=== PATIENT | female | born 1985 | race Caucasian/White ===

== ENCOUNTER 2017-08-25 17:57 | Emergency (ER) | payer OTHER ==
[2017-08-25] MEDS ORDERED: LORazepam 2 MG/ML INJ IV STA (19:21)
--- NOTE | 2017-08-25 19:26 | ED ---
General Adult HPI - General Chief complaint: Shortness of Breath Stated complaint: MYKEL X 4 DAYS Time Seen by Provider: 08/25/17 18:58 Source: patient, RN notes reviewed Mode of arrival: ambulatory Limitations: no limitations - History of Present Illness Initial comments: If complaint and history of present illness this is a 31-year-old female here for complaint of being short of breath getting progressively worse for approximate 4 days. Patient is asking if it could possibly be anxiety. Does not offer any resistance to why she should be anxious. She is denying any headache denies chest pain or GI/ problems. - Related Data Home Medications Medication Instructions Recorded Confirmed Pioglitazone [Actos] 30 mg PO DAILY 08/25/17 08/25/17 Sertraline [Zoloft] 50 mg PO HS 08/25/17 08/25/17 metFORMIN HCL 1,000 mg PO BID 08/25/17 08/25/17 Allergies Allergy/AdvReac Type Severity Reaction Status Date / Time amoxicillin Allergy Rash/Hives Verified 08/25/17 18:56 Review of Systems ROS Statement: Those systems with pertinent positive or pertinent negative responses have been documented in the HPI. Review of systems. No visual acuity changes no headache her skin is somewhat flushed. States she feels short of breath with a pulse ox of 100% in room air occasional palpitations no chest pain no nausea no vomiting no diarrhea no neuro deficits. All systems are reviewed No significant past medical problems other non-insulin diabetes mellitus, no surgeries. Family history hypertension and heart disease. The patient thinks she had a rash she had amoxicillin as a baby. She does smoke strongly encouraged to stop drink alcohol rarely socially. ROS Other: All systems not noted in ROS Statement are negative. Past Medical History Past Medical History: Diabetes Mellitus History of Any Multi-Drug Resistant Organisms: None Reported Past Surgical History: No Surgical Hx Reported Past Psychological History: Depression Smoking Status: Current every day smoker Past Alcohol Use History: Occasional Past Drug Use History: None Reported General Exam - General Exam Comments Initial Comments: General: The patient is awake and alert, in no distress, and she feels short of breath. Respiratory rate 24. No pain. Vital signs temperature 97.1 pulse 87 respiratory rate 24 pulse ox on percent room air blood pressure 111/69 Eye: Pupils are equal, round and reactive to light, extra-ocular movements are intact ; there is normal conjunctiva bilaterally. No signs of icterus. Ears, nose, mouth and throat: There are moist mucous membranes and no oral lesions. Neck: The neck is supple, there is no tenderness, thyroid not enlarged no anterior cervical lymphadenopathy. or JVD. Cardiovascular: There is a regular rate and rhythm. No murmur, rub or gallop is appreciated. Respiratory: Lungs are clear to auscultation, respirations are non-labored, breath sounds are equal. No wheezes, stridor, rales, or rhonchi. I'll the increased respiratory rate of 24. Pulse ox on percent room air. Gastrointestinal: Soft, non-distended, non-tender abdomen without masses or organomegaly noted. There is no rebound or guarding present. No CVA tenderness. Bowel sounds are unremarkable. Back: There is no tenderness to palpation in the midline. There is no obvious deformity. No rashes noted. Musculoskeletal: Normal ROM, no tenderness, There is no pedal edema. There is no calf tenderness or swelling. Sensation intact. Pulses equal bilaterally 2+. Neurological: CN II-XII intact, There are no obvious motor or sensory deficits. Coordination appears grossly intact. Speech is normal. Eyes any neuro deficits. Skin: Skin is flushed. No medications taken. Psychiatric: Cooperative, appropriate mood & affect, normal judgment. She asks if it could be anxiety causing her to feel short of breath. Patient does not appear anxious other than the fact that she is breathing slightly more rapidly than necessary. Limitations: no limitations Course Vital Signs 08/25/17 08/25/17 08/25/17 18:25 18:59 19:06 Temperature 97.1 F L Pulse Rate 87 99 Respiratory 24 26 H Rate Blood Pressure 111/69 O2 Sat by Pulse 100 99 Oximetry 08/25/17 08/25/17 20:01 21:04 Temperature Pulse Rate 76 86 Respiratory 18 19 Rate Blood Pressure 126/67 106/61 O2 Sat by Pulse 97 98 Oximetry EKG Findings - EKG Comments: EKG Findings:: KG was done and reviewed at 1943 showing normal sinus rhythm no acute ST elevation no ectopy no ischemic changes. Rate is 78 TX interval is 126 QRS 82 QT is [address] Drew Medical Decision Making - Medical Decision Making Medical decision making; patient's here because of sensation of shortness of breath. Patient thinks she might be having an anxiety attack. Labs show white count of 10 hemoglobin 14 hematocrit 41, potassium 3.6 with a BUN is 16 creatinine 0.5 GFR greater than 60. Glucose 220. The patient is a known diabetic. TSH is 2.3. Troponin less than 0.012. D-dimer normal at 0.36. Chest x-ray is done and reviewed by radiologist his impression is; normal chest as read by Dr. Onofre Patient relaxed, states she feels much better. No chest pain or shortness of breath. She states that she is under great deal of stress of late which probably caused her to be anxious. Her father come drive her home. Advised to follow-up with her family physician. - Lab Data Result diagrams: 08/25/17 19:45 08/25/17 19:45 Lab Results 08/25/17 08/25/17 08/25/17 Range/Units 19:45 19:45 19:45 WBC 10.0 (3.8-10.6) k/uL RBC 4.46 (3.80-5.40) m/uL Hgb 14.1 (11.4-16.0) gm/dL Hct 41.1 (34.0-46.0) % MCV 92.0 (80.0-100.0) fL MCH 31.5 (25.0-35.0) pg MCHC 34.2 (31.0-37.0) g/dL RDW 13.6 (11.5-15.5) % Plt Count 269 (150-450) k/uL Neutrophils % 64 % Lymphocytes % 27 % Monocytes % 5 % Eosinophils % 2 % Basophils % 1 % Neutrophils # 6.4 (1.3-7.7) k/uL Lymphocytes # 2.7 (1.0-4.8) k/uL Monocytes # 0.5 (0-1.0) k/uL Eosinophils # 0.2 (0-0.7) k/uL Basophils # 0.1 (0-0.2) k/uL D-Dimer (<0.60) mg/L FEU Sodium 135 L (137-145) mmol/L Potassium 3.6 (3.5-5.1) mmol/L Chloride 102 (98-107) mmol/L Carbon Dioxide 20 L (22-30) mmol/L Anion Gap 13 mmol/L BUN 16 (7-17) mg/dL Creatinine 0.50 L (0.52-1.04) mg/dL Est GFR (MDRD) Af Amer >60 (>60 ml/min/1.73 sqM) Est GFR (MDRD) Non-Af >60 (>60 ml/min/1.73 sqM) Glucose 220 H (74-99) mg/dL Calcium 9.9 (8.4-10.2) mg/dL Total Bilirubin 0.3 (0.2-1.3) mg/dL AST 21 (14-36) U/L ALT 31 (9-52) U/L Alkaline Phosphatase 86 (38-126) U/L Total Creatine Kinase 68 (30-135) U/L CK-MB (CK-2) 0.4 (0.0-2.4) ng/mL CK-MB (CK-2) Rel Index 0.6 Troponin I <0.012 (0.000-0.034) ng/mL Total Protein 7.1 (6.3-8.2) g/dL Albumin 4.1 (3.5-5.0) g/dL TSH 2.300 (0.465-4.680) mIU/L 08/25/17 Range/Units 19:45 WBC (3.8-10.6) k/uL RBC (3.80-5.40) m/uL Hgb (11.4-16.0) gm/dL Hct (34.0-46.0) % MCV (80.0-100.0) fL MCH (25.0-35.0) pg MCHC (31.0-37.0) g/dL RDW (11.5-15.5) % Plt Count (150-450) k/uL Neutrophils % % Lymphocytes % % Monocytes % % Eosinophils % % Basophils % % Neutrophils # (1.3-7.7) k/uL Lymphocytes # (1.0-4.8) k/uL Monocytes # (0-1.0) k/uL Eosinophils # (0-0.7) k/uL Basophils # (0-0.2) k/uL D-Dimer 0.36 (<0.60) mg/L FEU Sodium (137-145) mmol/L Potassium (3.5-5.1) mmol/L Chloride (98-107) mmol/L Carbon Dioxide (22-30) mmol/L Anion Gap mmol/L BUN (7-17) mg/dL Creatinine (0.52-1.04) mg/dL Est GFR (MDRD) Af Amer (>60 ml/min/1.73 sqM) Est GFR (MDRD) Non-Af (>60 ml/min/1.73 sqM) Glucose (74-99) mg/dL Calcium (8.4-10.2) mg/dL Total Bilirubin (0.2-1.3) mg/dL AST (14-36) U/L ALT (9-52) U/L Alkaline Phosphatase (38-126) U/L Total Creatine Kinase (30-135) U/L CK-MB (CK-2) (0.0-2.4) ng/mL CK-MB (CK-2) Rel Index Troponin I (0.000-0.034) ng/mL Total Protein (6.3-8.2) g/dL Albumin (3.5-5.0) g/dL TSH (0.465-4.680) mIU/L Disposition Clinical Impression: Hyperventilation Disposition: HOME SELF-CARE Condition: Good Instructions: Hyperventilation (ED) Additional Instructions: Rest relax follow-up the patient family physician. Referrals: Ewdin Leiva MD [Primary Care Provider] - 1-2 days Time of Disposition: 21:48
[2017-08-25 19:55] LABS: Basophils # (A) 0.1 k/uL (0-0.2); Basophils % (A) 1 %; Eosinophils # (A) 0.2 k/uL (0-0.7); Eosinophils % (A) 2 %; HCT 41.1 % (34.0-46.0); HGB 14.1 gm/dL (11.4-16.0); Lymphocytes # (A) 2.7 k/uL (1.0-4.8); Lymphocytes % (A) 27 %; MCH 31.5 pg (25.0-35.0); MCHC 34.2 g/dL (31.0-37.0); Mean Platelet Volume 7.5; Monocytes # (A) 0.5 k/uL (0-1.0); Monocytes % (A) 5 %; Neutrophils # (A) 6.4 k/uL (1.3-7.7); Neutrophils % (A) 64 %; Platelet Count 269 k/uL (150-450); RBC 4.46 m/uL (3.80-5.40); RDW 13.6 % (11.5-15.5)
--- NOTE | 2017-08-25 20:06 | XR ---
EXAMINATION TYPE: XR chest 2V DATE OF EXAM ORDERED: 08/25/2017 HISTORY: difficulty breathing. REFERENCE: None. FINDINGS: The lungs are clear. Pleural spaces are clear. Heart size is normal. IMPRESSION: NORMAL CHEST.
[2017-08-25 20:07] LABS: ALT 31 U/L (9-52); AST 21 U/L (14-36); Albumin 4.1 g/dL (3.5-5.0); Alkaline Phosphatase 86 U/L (38-126); Anion Gap 13 mmol/L; Blood Urea Nitrogen 16 mg/dL (7-17); Calcium 9.9 mg/dL (8.4-10.2); Carbon Dioxide 20 mmol/L (22-30); Chloride 102 mmol/L (98-107); Glucose 220 mg/dL (74-99); Potassium 3.6 mmol/L (3.5-5.1); Sodium 135 mmol/L (137-145); Total Bilirubin 0.3 mg/dL (0.2-1.3); Total Protein 7.1 g/dL (6.3-8.2)
[2017-08-25 20:20] LABS: Creatine Kinase 68 U/L (30-135)
[2017-08-25 20:32] LABS: Creatine Kinase MB 0.4 ng/mL (0.0-2.4); Troponin I <0.012 ng/mL (0.000-0.034)
[2017-08-25 22:00] VITALS: BP 112/67; PULSE 96; RESP 18; TEMP 97.4
== END 2017-08-25 21:59 | disposition home or self-care (01) ==
LOC: EC 17:57
DX: R06.4 Hyperventilation (principal); R06.02 Shortness of breath; R23.2 Flushing; E11.9 Type 2 diabetes mellitus without complications; F32.9 Major depressive disorder, single episode, unspecified; F17.200 Nicotine dependence, unspecified, uncomplicated; Z79.84 Long term (current) use of oral hypoglycemic drugs; Z79.899 Other long term (current) drug therapy; Z88.0 Allergy status to penicillin
CPT/HCPCS: 36415; 93005; 85379; 80053; 84443; 82550; 82553; 84484; 85025; 71046; 99285; 96374; J2060

== ENCOUNTER → 2018-05-03 | Outpatient (CLI) | payer OTHER ==
--- NOTE | 2018-05-04 07:26 | US ---
EXAMINATION TYPE: US pelvis complete transvag DATE OF EXAM: 05/03/2018 COMPARISON: NONE CLINICAL HISTORY: R10.2 pelvic pain, T83.89XA. Pelvic cramping, IUD placement, 1, para 1 TECHNIQUE: . Transabdominal sonographic images of the pelvis were acquired. Transvaginal sonographi c images were medically necessary to better assess the following anatomy: IUD placement Date of LMP: 1 week ago EXAM MEASUREMENTS: Uterus: 8.0 x 3.5 x 4.6 cm Endometrial Stripe: 0.3 cm Right Ovary: 2.9 x 1.6 x 2.8 cm Left Ovary: 3.2 x 2.4 x 2.7 cm 1. Uterus: anteverted 2. Endometrium: IUD appears to be positioned low in OC / cervix portion of endometrium 3. Right Ovary: 1.6cm cystic area 4. Left Ovary: 2.1cm complex cystic area 5. Bilateral Adnexa: wnl 6. Posterior cul-de-sac: wnl Anteverted uterus is seen. IUD is identified on transvaginal investigation and appears abnormal are l ow in positioning in the cervical endometrial canal. No free fluid is seen in pelvic cul-de-sac. No s uspicious thickening of endometrium is seen. Both ovaries are identified and not suspiciously enlarged. Within the left ovary on transvaginal ultr asound there is 2.1 x 1.7 cm oval heterogeneous hypoechoic lesion favoring hemorrhagic cyst. IMPRESSION: 1. Abnormal low positioning of IUD, correlate clinically with direct pelvic exam. 2. A 2.1 cm nonsimple cystic lesion left ovary favors hemorrhagic cyst. Consider pelvic ultrasound fo llow-up in 6 weeks' time to reinvestigate.
== END | disposition home or self-care (01) ==
LOC: RADUSWWP 15:39
PROVIDERS: ATTEND Obstetrics & Gynecology
DX: T83.32XA Displacement of intrauterine contraceptive device, initial encounter (principal); T83.89XA Other specified complication of genitourinary prosthetic devices, implants and grafts, initial encounter; N83.202 Unspecified ovarian cyst, left side
CPT/HCPCS: 76830; 76856

== ENCOUNTER → 2018-06-16 | Outpatient (CLI) | payer OTHER ==
[2018-06-16 15:42] LABS: Albumin 4.5 g/dL (3.80-4.90); Albumin/Globulin Ratio 2.05 (1.20-2.10); Anion Gap 9.7 mmol/L (4.00-12.00); Carbon Dioxide 23.3 mmol/L (21.6-31.8); Globulin 2.2 g/dL (2.1-3.7); LDL Cholesterol,Calculated 60.4 mg/dL (0.0-131.0); Potassium 4.4 mmol/L (3.5-5.5); Total Bilirubin 0.5 mg/dL (0.3-1.2); Total Protein 6.7 g/dL (6.2-8.2); VLDL Calculation 21.6 mg/dL (5.00-40.00)
[2018-06-16 17:04] LABS: Hemoglobin A1C 7.6 % (4.0-6.0)
== END ==
LOC: LABWHC1 07:54
PROVIDERS: ATTEND Internal Medicine Endocrinology, Diabetes & Metabolism
DX: E11.65 Type 2 diabetes mellitus with hyperglycemia (principal)
CPT/HCPCS: 36415; 80053; 80061; 82043; 82570; 82607; 83036; 84443

== ENCOUNTER → 2018-06-27 | Outpatient (CLI) | payer OTHER ==
[2018-06-27 15:01] LABS: Basophils # (A) 0.1 k/uL (0-0.2); Basophils % (A) 1 %; Eosinophils # (A) 0.1 k/uL (0-0.7); Eosinophils % (A) 1 %; HGB 13.6 gm/dL (11.4-16.0); Lymphocytes # (A) 1.9 k/uL (1.0-4.8); Lymphocytes % (A) 19 %; MCH 31.2 pg (25.0-35.0); MCHC 32.4 g/dL (31.0-37.0); MCV 96.4 fL (80.0-100.0); Mean Platelet Volume 7.3; Monocytes # (A) 0.5 k/uL (0-1.0); Monocytes % (A) 5 %; Neutrophils # (A) 7.4 k/uL (1.3-7.7); Neutrophils % (A) 74 %; Platelet Count 264 k/uL (150-450); RBC 4.35 m/uL (3.80-5.40); RDW 12.7 % (11.5-15.5)
== END | disposition home or self-care (01) ==
LOC: LABPAT 14:06
PROVIDERS: ATTEND Obstetrics & Gynecology
DX: Z01.812 Encounter for preprocedural laboratory examination (principal)
CPT/HCPCS: 36415; 85025

== ENCOUNTER → 2018-07-07 | Day surgery (SDC) | payer OTHER ==
[2018-07-03 15:50] VITALS: BMI 42.9
--- NOTE | 2018-07-06 19:40 | P.HPOB ---
History of Present Illness H&P Date: 07/06/18 Chief Complaint: Menorrhagia with irregular cycle, family planning This is a 32-year-old female 1 para 1 who presents for laparoscopic bilateral tubal ligation via fulguration and endometrial ablation with NovaSure along with dilation and curettage and hysteroscopy secondary to menorrhagia with irregular cycle. She did have a intrauterine device with Mirena inserted in October of this year. It did migrate and did need to be removed secondary to irregular position. She then underwent a Nexplanon insert. She later developed an infection in her arm around the incision site and the Nexplanon did expel itself. She would like definitive surgical treatment for family planning. She also would like a NovaSure ablation to control her irregular heavy bleeding. Her menses were previously very heavy and crampy. The Nexplanon has helped with the heaviness of her bleeding and the cramping but it has expelled itself and therefore she needs something else for her heavy bleeding. She is diabetic and does not want to take control pills due to her diabetes. Obstetrical history: . History of 1 vaginal delivery. Gynecologic history: No history of sexual transmitted diseases. Social history: She is and not currently sexual active. She works at [employer] in [place]. Review of Systems Constitutional: Reports night sweats, Denies chills, Denies fever Eyes: bilateral blurred vision (Occasional), denies pain Ears, nose, mouth and throat: Denies headache, Denies sore throat Cardiovascular: Denies chest pain, Denies shortness of breath Respiratory: Denies cough Gastrointestinal: Denies abdominal pain, Denies diarrhea, Denies nausea, Denies vomiting Genitourinary: Reports dysmenorrhea, Reports menorrhagia, Reports urinary frequency Menstruation: Reports menses 8 or > days, Reports menses variable, Reports period heavy Musculoskeletal: Reports low back pain Integumentary: Denies pruritus, Denies rash Neurological: Denies numbness, Denies weakness Psychiatric: Reports anxiety, Reports depression Endocrine: Reports fatigue, Denies weight change Past Medical History Past Medical History: Diabetes Mellitus, Hyperlipidemia Additional Past Medical History / Comment(s): heavy menses History of Any Multi-Drug Resistant Organisms: None Reported Past Surgical History: Adenoidectomy, Tonsillectomy Additional Past Surgical History / Comment(s): myringotomy & tubes Past Anesthesia/Blood Transfusion Reactions: No Reported Reaction Past Psychological History: Anxiety, Depression Smoking Status: Current some day smoker Past Alcohol Use History: Occasional Past Drug Use History: None Reported - Past Family History Mother Family Medical History: Cancer, Diabetes Mellitus, Hypertension Additional Family Medical History / Comment(s): colon polyp Medications and Allergies Home Medications Medication Instructions Recorded Confirmed Type Pioglitazone [Actos] 45 mg PO DAILY 08/25/17 07/03/18 History Sertraline [Zoloft] 100 mg PO HS 08/25/17 07/03/18 History metFORMIN HCL 1,000 mg PO BID 08/25/17 07/03/18 History ALPRAZolam [Xanax] 0.25 mg PO BID PRN 07/03/18 07/03/18 History Dapagliflozin Propanediol [Farxiga] 10 mg PO HS 07/03/18 07/03/18 History Dulaglutide [Trulicity] 1.5 mg SQ TH 07/03/18 07/03/18 History Lipitor(Unknown Dose) 1 tab PO HS 07/03/18 History Allergies Allergy/AdvReac Type Severity Reaction Status Date / Time amoxicillin Allergy Rash/Hives Verified 07/03/18 15:31 Exam Osteopathic Statement: *. No significant issues noted on an osteopathic structural exam other than those noted in the History and Physical/Consult. HEENT: Within normal limits Heart: Regular rate and rhythm Lungs: Clear to auscultation bilaterally Abdomen: Soft, nontender Pelvic exam: Uterus is anteverted, nontender, with no adnexal masses or tenderness palpated. Extremities: Negative Homans Assessment and Plan (1) Family planning Status: Acute Code(s): Z30.09 - ENCOUNTER FOR OTH GENERAL CNSL AND ADVICE ON CONTRACEPTION SNOMED Code(s): 873827468 (2) Menorrhagia with irregular cycle Status: Acute Code(s): N92.1 - EXCESSIVE AND FREQUENT MENSTRUATION WITH IRREGULAR CYCLE SNOMED Code(s): 314350321 Plan: Proceed with dilation and curettage with hysteroscopy and NovaSure endometrial ablation along with laparoscopic bilateral tubal ligation via fulguration. I have discussed the risks, benefits, and alternative therapies for the above- mentioned procedure and for both sedation/anesthesia as well as necessary blood products administration, if indicated, as they pertain to this patient. The patient has indicated her understanding and acceptance of the risks and procedures discussed.
[~2018-07-07] MED LIST: BUPIVACAINE (PF) 0.25% 30 ML VIAL SQ ONE; DEXAMETHASONE SOD PHOSPHATE 10 MG/ML 1 ML VIAL IV ONE; GLYCOPYRROLATE 0.2 MG/ML 2 ML VIAL ONE; HYDROcodone/APAP 5-325MG 1 EACH TAB PO ONE; HYDROmorphone (PF) 1 MG/ML ONE; HYDROmorphone 1 MG/ML 1 ML SYRINGE IVP ONE; KETOROLAC 30 MG/ML 1 ML VIAL ONE; LACTATED RINGERS 1,000 ML IV ONE; LIDOCAINE 1% 20 ML VIAL (10MG/ML) FOR IV START INTRADERMA ONE; LIDOCAINE 1% INJ 10MG/ML (20 ML MDV) ONE; MEPERIDINE 50 MG/ML SYRINGE IVP ONE; MIDAZOLAM 2 MG/2 ML VIAL ONE; NEOSTIGMINE 1 MG/ML 10 ML VIAL ONE; ONDANSETRON 4 MG/2 ML VIAL IVP ONE; PROPOFOL 10 MG/ML 20 ML VIAL IV ONE; Pre Op ABX Message 1 EACH MISC MISCELLANE ONE; ROCURONIUM BROMIDE 10 MG/ML 10 ML VIAL IV ONE; fentaNYL (PF) 50 MCG/ML 2 ML AMP ONE
[2018-07-07 06:47] LABS: Glucose,Whole Blood 145 mg/dL (75-99)
--- NOTE | 2018-07-07 09:29 | P.OP ---
Date of Procedure: 07/07/18 Preoperative Diagnosis: Menorrhagia with irregular cycle Family planning Postoperative Diagnosis: Same Procedure(s) Performed: Dilation and curettage with hysteroscopy and NovaSure endometrial ablation Laparoscopic bilateral tubal ligation via fulguration Anesthesia: JESSIE Surgeon: Taylor Moeller Estimated Blood Loss (ml): 20 Pathology: none sent (Endometrial curettings) Condition: stable Disposition: same day Indications for Procedure: This is a 32-year-old female 1 para 1 who presents for laparoscopic bilateral tubal ligation via fulguration and endometrial ablation with NovaSure along with dilation and curettage and hysteroscopy secondary to menorrhagia with irregular cycle. She did have a intrauterine device with Mirena inserted in October of this year. It did migrate and did need to be removed secondary to irregular position. She then underwent a Nexplanon insert. She later developed an infection in her arm around the incision site and the Nexplanon did expel itself. She would like definitive surgical treatment for family planning. She also would like a NovaSure ablation to control her irregular heavy bleeding. Her menses were previously very heavy and crampy. The Nexplanon has helped with the heaviness of her bleeding and the cramping but it has expelled itself and therefore she needs something else for her heavy bleeding. She is diabetic and does not want to take control pills due to her diabetes. Operative Findings: Upon hysteroscopy, a fairly uniform endometrial pattern was noted with no specific polyps or fibroids visualized. Both tubal ostia were visualized. A minimal to moderate amount of endometrial curettings were obtained. Upon laparoscopy, normal uterus tubes and ovaries are noted. Description of Procedure: The patient is taken to the operating room. She is placed in the dorsal lithotomy position after general anesthesia was given. She is prepped and draped in the normal sterile fashion. Bladder is drained with a catheter and then removed. Pelvic exam is performed under anesthesia. Uterus is found to be anteverted with no adnexal masses. She is placed in slight Trendelenburg position. A right angle retractor is used to visualize the cervix. The anterior lip of the cervix is grasped with a single-tooth tenaculum. Cervix is sounded to 3 cm. Uterus is sounded to 9 cm. Cervix is gently dilated with Parkinson dilators until a hysteroscope could be passed. Hysteroscopy is performed using normal saline. The above noted findings are noted. Next a polyp forceps is introduced. And a minimal to moderate amount of tissue was obtained. Next medium-sized size sharp curette was placed. A moderate amount of endometrial curettings were obtained. Next NovaSure array was inserted into the endometrial cavity. Length was set at 6 cm and width was determined to be 4.3 cm. Next cavity assessment was completed and passed on the first try. Next NovaSure array was fired at 142 W for 50 seconds. Next the array was removed, inspected and then discarded. Next the hysteroscope was reinserted. Uniform charring was noted. Pictures were taken. Hysteroscope was removed. Next a kroner uterine manipulator was inserted through the cervix and the balloon was inflated. Single-tooth tenaculum was removed from the anterior lip of the cervix. Minimal bleeding was noted. All other instruments removed from the vagina. Gloves are changed and attention is turned to the abdomen. The infraumbilical fold was grasped in transverse fashion with 2 Allis clamps. A small transverse incision was made with a scalpel. A hemostat was used to carry the incision down to the underlying layer of fascia. A towel clip was placed above the umbilicus for retraction. A 11 mm disposable bladeless trocar was then inserted into the peritoneal cavity under direct visualization. Once inside, pneumoperitoneum was achieved with CO2 gas. The insert was removed and the camera was placed. Intraperitoneal placement was confirmed. No bleeding was noted. Next the patient was placed in Trendelenburg position. A small stab incision was made suprapubically and a 5 mm disposable bladeless trocar was inserted into the peritoneal cavity under direct visualization. Once inside pelvic contents were inspected. Next a bipolar Kleppinger instrument was placed through the inferior trocar and the midportion of each tube was brought away from other structures and completely fulgurated on approximate 2-3 cm segment of each tube. Excellent hemostasis was noted. A picture was taken. Pneumoperitoneum was released after the inferior trocar was removed under direct visualization. The upper trocar was then removed. The fascial incision was closed with 0 Vicryl suture in interrupted [id number] stitch. The skin incisions were then closed with 4-0 Vicryl suture in a subcuticular fashion. Next the kroner uterine manipulator was removed. Minimal bleeding was noted. All sponge and needle counts are correct. The patient is then taken to recovery room in stable condition.
[2018-07-07 09:40] VITALS: TEMP 97.2
[2018-07-07 09:52] LABS: Glucose,Whole Blood 171 mg/dL (75-99)
[2018-07-07 10:46] VITALS: BP 124/80; PULSE 92; RESP 18
== END | disposition home or self-care (01) ==
LOC: OR 06:16
PROVIDERS: ATTEND Obstetrics & Gynecology
DX: Z30.2 Encounter for sterilization (principal); E11.9 Type 2 diabetes mellitus without complications; N92.1 Excessive and frequent menstruation with irregular cycle; E66.9 Obesity, unspecified; E78.5 Hyperlipidemia, unspecified; F41.9 Anxiety disorder, unspecified; F32.9 Major depressive disorder, single episode, unspecified; F17.200 Nicotine dependence, unspecified, uncomplicated; Z82.49 Family history of ischemic heart disease and other diseases of the circulatory system; Z83.3 Family history of diabetes mellitus; Z79.84 Long term (current) use of oral hypoglycemic drugs; Z88.0 Allergy status to penicillin; Z79.899 Other long term (current) drug therapy; Z68.41 Body mass index [BMI] 40.0-44.9, adult
CPT/HCPCS: 81025; 88305; 58563; 58670; J2250; J1100; J2710; J2175; J2405; J2001; J3010; J1885; J1170; J2704

== ENCOUNTER → 2018-10-24 | Outpatient (CLI) | payer OTHER ==
[2018-10-24 12:27] LABS: Albumin 4.7 g/dL (3.80-4.90); Albumin/Globulin Ratio 2.04 (1.60-3.17); Anion Gap 12.7 mmol/L (4.00-12.00); Calcium 9.3 mg/dL (8.7-10.3); Carbon Dioxide 21.3 mmol/L (21.6-31.8); Globulin 2.3 g/dL (1.6-3.3); Potassium 4.6 mmol/L (3.5-5.5); Total Bilirubin 0.6 mg/dL (0.3-1.2)
[2018-10-24 12:35] LABS: T4, Free (Free Thyroxine) 1.4 ng/dL (0.80-1.80)
[2018-10-24 13:32] LABS: Hemoglobin A1C 7.7 % (4.0-6.0)
== END | disposition home or self-care (01) ==
LOC: LABWHC1 07:18
PROVIDERS: ATTEND Internal Medicine Endocrinology, Diabetes & Metabolism
DX: E11.65 Type 2 diabetes mellitus with hyperglycemia (principal)
CPT/HCPCS: 36415; 80053; 82043; 82570; 83036; 84439; 84443; 84480

== ENCOUNTER → 2018-12-27 | Outpatient (CLI) | payer OTHER ==
--- NOTE | 2018-12-28 07:16 | US ---
EXAMINATION TYPE: US pelvic complete DATE OF EXAM: 12/27/2018 COMPARISON: US 05/03/2018 CLINICAL HISTORY: R10.2 Pelvic Pain. Patient had tubal ligation and ablation in June 2018 TECHNIQUE: . Transabdominal sonographic images of the pelvis were acquired. Date of LMP: July 2018 EXAM MEASUREMENTS: Uterus: 6.7 x 3.1 x 4.1 cm Endometrial Stripe: 0.3 cm Right Ovary: 1.9 x 1.5 x 2.3 cm Left Ovary: 3.7 x 3.1 x 3.5 cm 1. Uterus: Anteverted wnl 2. Endometrium: wnl 3. Right Ovary: wnl 4. Left Ovary: Cystic area visualized measuring 2.3 x 1.4 x 1.8 cm 5. Bilateral Adnexa: wnl 6. Posterior cul-de-sac: wnl IMPRESSION: 1. There is a 2.3 cm hypoechoic nodule within the left ovary. This does not meet the criteria of a si mple cyst. Hemorrhagic cyst in the differential diagnosis. Other etiologies including cystic neoplasm s of the ovary not excluded. This is similar in appearance relative to the prior exam of 2018.
== END | disposition home or self-care (01) ==
LOC: RADUSWWP 16:32
PROVIDERS: ATTEND Obstetrics & Gynecology
DX: N83.8 Other noninflammatory disorders of ovary, fallopian tube and broad ligament (principal); R10.2 Pelvic and perineal pain
CPT/HCPCS: 76856

== ENCOUNTER → 2019-03-28 | Outpatient (CLI) | payer OTHER ==
--- NOTE | 2019-03-28 15:40 | US ---
EXAMINATION TYPE: US thyroid st tissue head/neck DATE OF EXAM: 03/28/2019 COMPARISON: NONE CLINICAL HISTORY: E11.65 TYPE 2 DIABETES. Abnormal labs GLAND SIZE: Right Lobe: 5.7 x 2.0 x 1.7 cm Overall Parenchyma: homogenous Left Lobe: 5.7 x 2.0 x 1.7 cm Overall Parenchyma: homogeneous Isthmus Thickness: .5 cm NODULES RIGHT: # of nodules measured on right: 0 LEFT: # of nodules measured on left: 0 ISTHMUS: # of nodules measured in the isthmus: 0 Bilateral neck scanned, no evidence of lymphadenopathy. IMPRESSION: Mildly enlarged homogeneous thyroid gland with no measurable nodule.
== END | disposition home or self-care (01) ==
LOC: RADUSWWP 15:02
PROVIDERS: ATTEND Internal Medicine Endocrinology, Diabetes & Metabolism
DX: E04.9 Nontoxic goiter, unspecified (principal)
CPT/HCPCS: 76536

== ENCOUNTER → 2019-06-29 | Outpatient (CLI) | payer OTHER ==
--- NOTE | 2019-07-01 11:24 | MR ---
EXAMINATION TYPE: MR knee LT wo con DATE OF EXAM: 06/29/2019 COMPARISON: None HISTORY: Pain in left knee TECHNIQUE: Multiplanar, multisequence imaging of the left knee is performed without IV contrast. FINDINGS: Exam is limited due to motion artifact. There is complex abnormal signal involving the posterior horn the medial meniscus compatible with a c omplex meniscal tear. Significant loss of joint space and reactive marrow edema noted involving the t ibial plateau with no fracture. Fluid signal surrounding the medial collateral ligament suggesting st rain but no evidence of tear. Lateral collateral ligament intact. No definite lateral meniscal tear. Trace amount of fluid in the suprapatellar bursa with the patellar and quadriceps tendons intact. The re is arthropathy and narrowing of the patellofemoral joint with cartilage remains intact. No sizable Rashid's cyst. Posterior cruciate ligament has a normal appearance. There is ill-definition the posterior fibers of the ACL suspicious for strain. Partial intrasubstance tear of the posterior fibers not excluded. IMPRESSION: 1. Osteoarthritis with significant loss of the medial compartment knee joint with complex tear clay pigeon loader ior horn medial meniscus and reactive marrow edema in the tibial plateau. 2. MCL strain with no evidence of tear. 3. Ill definition the posterior fibers of the ACL. Can be associated with ACL sprain with partial tea r of the posterior fibers. No through thickness tear.
== END | disposition home or self-care (01) ==
LOC: RADMRIMAIN 15:54
PROVIDERS: ATTEND Orthopaedic Surgery
DX: M17.12 Unilateral primary osteoarthritis, left knee (principal); S83.232A Complex tear of medial meniscus, current injury, left knee, initial encounter; S83.412A Sprain of medial collateral ligament of left knee, initial encounter

== ENCOUNTER → 2019-07-07 | Outpatient (CLI) | payer OTHER ==
[2019-07-07 20:23] LABS: Hemoglobin A1C 7.8 % (4.0-6.0)
[2019-07-07 22:00] LABS: African American GFR (CKD) 138.8 (60.0-200.0); Albumin 4.6 g/dL (3.80-4.90); Albumin/Globulin Ratio 1.92 (1.60-3.17); Anion Gap 15.1 mmol/L (4.00-12.00); BUN/Creat Ratio 36.67 Ratio (12.00-20.00); Calcium 9.4 mg/dL (8.7-10.3); Carbon Dioxide 21.9 mmol/L (21.6-31.8); Globulin 2.4 g/dL (1.6-3.3); Non-African American GFR(CKD) 119.8 (60.0-200.0); Potassium 4.5 mmol/L (3.5-5.5); Total Bilirubin 0.5 mg/dL (0.3-1.2)
[2019-07-07 22:58] LABS: T4, Free (Free Thyroxine) 1.1 ng/dL (0.80-1.80)
== END | disposition home or self-care (01) ==
LOC: LABWHC1 09:12
PROVIDERS: ATTEND Internal Medicine Endocrinology, Diabetes & Metabolism
DX: E11.65 Type 2 diabetes mellitus with hyperglycemia (principal)
CPT/HCPCS: 36415; 80053; 80061; 83036; 84439; 84443; 84480

== ENCOUNTER → 2019-07-24 | Outpatient (CLI) | payer OTHER ==
[2019-07-24 14:12] LABS: Basophils % (A) 0 %; Eosinophils # (A) 0.1 k/uL (0-0.7); Eosinophils % (A) 1 %; HCT 43.4 % (34.0-46.0); HGB 14.5 gm/dL (11.4-16.0); Lymphocytes # (A) 2.2 k/uL (1.0-4.8); Lymphocytes % (A) 21 %; MCH 32.5 pg (25.0-35.0); MCHC 33.5 g/dL (31.0-37.0); MCV 96.9 fL (80.0-100.0); Monocytes # (A) 0.5 k/uL (0-1.0); Monocytes % (A) 4 %; Neutrophils # (A) 7.7 k/uL (1.3-7.7); Neutrophils % (A) 72 %; Platelet Count 296 k/uL (150-450); RBC 4.48 m/uL (3.80-5.40); RDW 12.1 % (11.5-15.5); WBC 10.6 k/uL (3.8-10.6)
[2019-07-24 14:21] LABS: Potassium 4.3 mmol/L (3.5-5.1)
== END | disposition home or self-care (01) ==
LOC: LABPAT 13:45
PROVIDERS: ATTEND Orthopaedic Surgery
DX: Z01.812 Encounter for preprocedural laboratory examination (principal); M23.92 Unspecified internal derangement of left knee
CPT/HCPCS: 36415; 80051; 85025

== ENCOUNTER 2019-08-02 13:40 | Day surgery (SDC) | payer OTHER ==
[2019-07-31 10:58] VITALS: BMI 44.2
--- NOTE | 2019-08-01 15:23 | HP ---
HISTORY AND PHYSICAL DATE OF SURGERY: 08/02/2019 Josephine Jaurez is a 33-year-old patient seen with progressive left knee pain. We discussed options. She elected to proceed with left knee arthroscopy. Consent regarding the procedure was obtained. PAST MEDICAL HISTORY: Ubo-mfywwej-ujvwqvoud diabetes, hypertension, hyperlipidemia. PAST SURGICAL HISTORY: Noncontributory. MEDICATIONS: 1. Actos. 2. Farxiga. 3. Lipitor. 4. Metformin. 5. Metoprolol. 6. . 7. Zoloft. ALLERGIES: AMOXICILLIN. SOCIAL HISTORY: Smokes 1 pack of cigarettes daily. PHYSICAL EVALUATION OF THE LEFT KNEE: Range of motion is +1/2-130. Tenderness medial and lateral joint lines. Positive medial Lexa's. Positive lateral Lexa's. Patellar crepitus. Ligaments stable. Hip rotation without pain. Distal neurovascular exam is intact. LEFT KNEE RADIOGRAPHS: Revealed mild osteoarthritis. MRI left knee revealed medial meniscal tear and osteoarthritis. IMPRESSION: 1. Internal derangement, left knee with medial meniscal tear. 2. Hypertension. 3. Hyperlipidemia. 4. Igp-wvzbmdd-ksuibtrzk diabetes. PLAN: Left knee arthroscopy with partial meniscectomy, partial synovectomy and debridement. MMODL / IJN: [id number] /
[~2019-08-02 13:40] MED LIST changes: -BUPIVACAINE (PF) 0.25% 30 ML VIAL SQ ONE; -GLYCOPYRROLATE 0.2 MG/ML 2 ML VIAL ONE; -HYDROcodone/APAP 5-325MG 1 EACH TAB PO ONE; -HYDROmorphone (PF) 1 MG/ML ONE; -HYDROmorphone 1 MG/ML 1 ML SYRINGE IVP ONE; -KETOROLAC 30 MG/ML 1 ML VIAL ONE; -LACTATED RINGERS 1,000 ML IV ONE; +LACTATED RINGERS 1,000 ML IV SCH; -LIDOCAINE 1% 20 ML VIAL (10MG/ML) FOR IV START INTRADERMA ONE; +LIDOCAINE 1% 20 ML VIAL (10MG/ML) FOR IV START INTRADERMA PRN; -LIDOCAINE 1% INJ 10MG/ML (20 ML MDV) ONE; -MEPERIDINE 50 MG/ML SYRINGE IVP ONE; +MIDAZOLAM 2 MG/2 ML VIAL IV PRN; -MIDAZOLAM 2 MG/2 ML VIAL ONE; -NEOSTIGMINE 1 MG/ML 10 ML VIAL ONE; -PROPOFOL 10 MG/ML 20 ML VIAL IV ONE; -Pre Op ABX Message 1 EACH MISC MISCELLANE ONE; -ROCURONIUM BROMIDE 10 MG/ML 10 ML VIAL IV ONE; +SCOPOLAMINE 1.5MG/72HR PATCH TRANSDERM ONE; -fentaNYL (PF) 50 MCG/ML 2 ML AMP ONE
[2019-08-02 14:18] VITALS: RESP 16
[2019-08-02 14:21] LABS: Glucose,Whole Blood 117 mg/dL (75-99)
[2019-08-02] MEDS ORDERED: fentaNYL (PF) 50 MCG/ML 2 ML AMP ONE (15:02)
[2019-08-02] MEDS ORDERED: HYDROmorphone (PF) 1 MG/ML ONE (15:02)
[2019-08-02] MEDS ORDERED: SUCCINYLCHOLINE CHLORIDE 100 MG/5 ML SYR IV ONE (15:02)
[2019-08-02] MEDS ORDERED: PROPOFOL 10 MG/ML 20 ML VIAL IV ONE (15:02)
[2019-08-02] MEDS ORDERED: LIDOCAINE 1% INJ 10MG/ML (20 ML MDV) ONE (15:02)
[2019-08-02] MEDS ORDERED: MIDAZOLAM 2 MG/2 ML VIAL ONE (15:02)
[2019-08-02] MEDS ORDERED: BUPIVACAIN-EPI 0.25%-1:200,000 30 ML VIAL SQ ONE (15:25)
[2019-08-02 15:59] VITALS: TEMP 96.9
--- NOTE | 2019-08-02 15:59 | P.OP ---
Date of Procedure: 08/02/19 Preoperative Diagnosis: Internal derangement left knee Postoperative Diagnosis: 1. Tear medial meniscus left knee 2. Grade 2 chondromalacia medial femoral condyle left knee 3. Reactive synovitis medial, lateral and suprapatellar compartments left knee Procedure(s) Performed: 1. Arthroscopic partial medial meniscectomy left knee 2. Arthroscopic chondroplasty medial femoral condyle left knee 3. Arthroscopic partial synovectomy medial, lateral and suprapatellar compartments left knee Anesthesia: GETA Surgeon: Pa Pinzon Estimated Blood Loss (ml): 5 Pathology: none sent Condition: stable Disposition: PACU Indications for Procedure: 33-year-old patient seen with progressive left knee pain. After treatment options were discussed, she elected to proceed with arthroscopy. Operative Findings: see description of procedure Description of Procedure: Patient was taken to the operative suite. Patient underwent a general anesthetic by the department of anesthesia. Patient was given preoperative antibiotics. The left lower extremity was placed in a well-padded arthroscopic leg eldridge. The left leg was prepped and draped in the normal sterile orthopedic fashion. A lateral parapatellar and suprapatellar incision was made. Trochars were inserted. Arthroscopy was initiated. Suprapatellar pouch revealed diffuse thick reactive synovitis. The patellofemoral joint appeared to articulate congruently. There was grade 1 chondromalacia of the patella with no osteochondral tears present. The scope was guided into the medial gutter. No loose bodies or plica were identified. The scope was then guided into the medial compartment. A medial parapatellar incision was made. Trocar inserted followed by probe. There was a complex tear posterior horn medial meniscus. There were grade 2 chondromalacia changes medial femoral condyle with diffuse osteochondral tears present. There was thick reactive synovitis anteriorly. I performed a partial medial meniscectomy down to stable tissue. I performed a chondroplasty of the medial femoral condyle down to stable tissue. I performed a partial synovectomy decompressing reactive synovitis. The residual meniscus was stable. There was good decompression of the synovitis. Scope and probe were then guided into the intercondylar notch. Cruciates were identified, probed and found to be stable. The scope and probe were then guided into lateral compartment. Lateral meniscus was probed and found to be stable. There was no significant chondromalacia lateral compartment. There was some reactive synovitis anteriorly. I performed a partial synovectomy decompressing reactive synovitis. Shaver was removed. There was good decompression of the synovitis. The scope was in guided back into the suprapatellar compartment. I used a motorized shaver into the suprapatellar compartment. I debrided some piecemeal fragments of meniscus I encountered. I performed a partial synovectomy decompressing the reactive synovitis. The shaver was removed. I took one more look on the entire knee, no residual debris. Instruments were now removed from the joint. The joint was infiltrated with .25% Marcaine. Steri-Strips were applied to the portal sites. Sterile dressings were applied. The patient was placed into a SMITH hose. No tourniquet was utilized. The patient was awakened, transferred to a bed and taken to recovery stable satisfactory condition.
[2019-08-02] MEDS: HYDROmorphone 0.5 MG/0.5 ML SYRINGE IVP PRN ×2 (16:00→16:07)
[2019-08-02] MEDS ORDERED: fentaNYL (PF) 50 MCG/ML 2 ML AMP IVP ONE ×2 (16:14→16:37)
[2019-08-02 16:48] LABS: Glucose,Whole Blood 146 mg/dL (75-99)
[2019-08-02 17:45] VITALS: BP 133/84; PULSE 113
== END 2019-08-02 17:55 | disposition home or self-care (01) ==
LOC: OR 13:40
PROVIDERS: ATTEND Orthopaedic Surgery
DX: S83.242A Other tear of medial meniscus, current injury, left knee, initial encounter (principal); X58.XXXA Exposure to other specified factors, initial encounter; M94.262 Chondromalacia, left knee; M65.862 Other synovitis and tenosynovitis, left lower leg; E11.9 Type 2 diabetes mellitus without complications; I10 Essential (primary) hypertension; E78.5 Hyperlipidemia, unspecified; F17.210 Nicotine dependence, cigarettes, uncomplicated; F32.9 Major depressive disorder, single episode, unspecified; Z98.51 Tubal ligation status; Z79.84 Long term (current) use of oral hypoglycemic drugs; Z79.899 Other long term (current) drug therapy; Z88.0 Allergy status to penicillin
CPT/HCPCS: 81025; 29881; 29876; J2250; J1100; J0690; J2405; J2001; J3010; J1170 ×2; J0330; J2704

== ENCOUNTER 2019-09-30 11:52 | Emergency (ER) | payer OTHER ==
[2019-09-30 12:01] VITALS: RESP 18
[2019-09-30] MEDS ORDERED: ONDANSETRON 4 MG/2 ML VIAL IVP STA (12:20)
[2019-09-30] MEDS ORDERED: PANTOPRAZOLE 40 MG/10 ML VIAL IVP STA (12:20)
[2019-09-30] MEDS ORDERED: HYDROmorphone 1 MG/ML 1 ML SYRINGE IVP STA (12:20)
[2019-09-30] MEDS ORDERED: SODIUM CHLORIDE 0.9% 500 ML 500 ML IV STA (12:20)
[2019-09-30] MEDS ORDERED: SODIUM CHLORIDE 0.9% 1,000 ML IV STA (12:20)
--- NOTE | 2019-09-30 12:23 | ED ---
General Adult HPI - General Chief complaint: Abdominal Pain Stated complaint: abdominal pain Time Seen by Provider: 09/30/19 12:04 Source: patient, RN notes reviewed Mode of arrival: ambulatory Limitations: no limitations - History of Present Illness Initial comments: Patient is a pleasant 33-year-old female presenting to the emergency Department with complaints of abdominal discomfort. Onset of symptoms was in the middle the night. Patient has nausea but no vomiting. No constipation or diarrhea. No dysuria or hematuria. Discomfort is left lower abdomen/left flank. - Related Data Home Medications Medication Instructions Recorded Confirmed Pioglitazone [Actos] 45 mg PO QAM 08/25/17 07/31/19 Sertraline [Zoloft] 100 mg PO HS 08/25/17 07/31/19 metFORMIN HCL 1,000 mg PO BID 08/25/17 07/31/19 Dulaglutide [Trulicity] 1.5 mg SQ TH 07/03/18 07/31/19 Lipitor(Unknown Dose) 1 tab PO HS 07/03/18 07/31/19 Dapagliflozin Propanediol [Farxiga] 10 mg PO HS 07/31/19 07/31/19 traMADol HCL 50 mg PO DIRECTED PRN 07/31/19 07/31/19 Previous Rx's Medication Instructions Recorded Hydrocodone/Acetaminophen [[place] 1 each PO Q6HR PRN #15 tab 08/02/19 5-325] Allergies Allergy/AdvReac Type Severity Reaction Status Date / Time amoxicillin Allergy Rash/Hives Verified 09/30/19 11:58 Review of Systems ROS Statement: Those systems with pertinent positive or pertinent negative responses have been documented in the HPI. ROS Other: All systems not noted in ROS Statement are negative. Constitutional: Denies: fever Eyes: Denies: eye pain ENT: Denies: ear pain Respiratory: Denies: cough Cardiovascular: Denies: chest pain Endocrine: Denies: fatigue Gastrointestinal: Reports: abdominal pain, nausea. Denies: vomiting Genitourinary: Denies: dysuria Musculoskeletal: Denies: back pain Skin: Denies: rash Neurological: Denies: weakness Past Medical History Past Medical History: Diabetes Mellitus History of Any Multi-Drug Resistant Organisms: None Reported Past Surgical History: Orthopedic Surgery Additional Past Surgical History / Comment(s): L knee Past Psychological History: Depression Smoking Status: Current some day smoker Past Alcohol Use History: Occasional Past Drug Use History: None Reported General Exam Limitations: no limitations General appearance: alert, in no apparent distress Head exam: Present: normocephalic Eye exam: Present: normal appearance Respiratory exam: Present: normal lung sounds bilaterally Cardiovascular Exam: Present: regular rate, normal rhythm Expanded Peripheral pulses: 2+: Dorsalis Pedis (R), Dorsalis Pedis (L) GI/Abdominal exam: Present: soft, tenderness (Mild tenderness left flank). Absent: distended, guarding, rebound, rigid Extremities exam: Present: normal inspection. Absent: pedal edema, calf tenderness Back exam: Absent: CVA tenderness (L) Neurological exam: Present: alert Psychiatric exam: Present: normal affect, normal mood Skin exam: Present: normal color Course Vital Signs 09/30/19 09/30/19 11:58 12:49 Temperature 98 F Pulse Rate 81 93 Respiratory 18 18 Rate Blood Pressure 133/84 131/69 O2 Sat by Pulse 99 98 Oximetry Medical Decision Making - Medical Decision Making Patient reevaluated and resting comfortably in bed. Abdomen soft and nontender. Patient is comfortable with discharge home. - Lab Data Result diagrams: 09/30/19 12:30 09/30/19 12:30 Lab Results 09/30/19 09/30/19 09/30/19 Range/Units 12:30 12:30 12:30 WBC (3.8-10.6) k/uL RBC (3.80-5.40) m/uL Hgb (11.4-16.0) gm/dL Hct (34.0-46.0) % MCV (80.0-100.0) fL MCH (25.0-35.0) pg MCHC (31.0-37.0) g/dL RDW (11.5-15.5) % Plt Count (150-450) k/uL Neutrophils % % Lymphocytes % % Monocytes % % Eosinophils % % Basophils % % Neutrophils # (1.3-7.7) k/uL Lymphocytes # (1.0-4.8) k/uL Monocytes # (0-1.0) k/uL Eosinophils # (0-0.7) k/uL Basophils # (0-0.2) k/uL PT (9.0-12.0) sec INR (<1.2) APTT (22.0-30.0) sec Sodium 136 L (137-145) mmol/L Potassium 4.2 (3.5-5.1) mmol/L Chloride 105 (98-107) mmol/L Carbon Dioxide 20 L (22-30) mmol/L Anion Gap 11 mmol/L BUN 19 H (7-17) mg/dL Creatinine 0.47 L (0.52-1.04) mg/dL Est GFR (CKD-EPI)AfAm >90 (>60 ml/min/1.73 sqM) Est GFR (CKD-EPI)NonAf >90 (>60 ml/min/1.73 sqM) Glucose 190 H (74-99) mg/dL Calcium 9.0 (8.4-10.2) mg/dL Total Bilirubin 0.6 (0.2-1.3) mg/dL AST 30 (14-36) U/L ALT 23 (4-34) U/L Alkaline Phosphatase 78 (38-126) U/L Total Protein 7.5 (6.3-8.2) g/dL Albumin 4.4 (3.5-5.0) g/dL Amylase 60 (30-110) U/L Lipase 63 (23-300) U/L HCG, Quant <2.4 mIU/mL Urine Color Yellow Urine Appearance Clear (Clear) Urine pH 6.0 (5.0-8.0) Ur Specific [place] 1.020 (1.001-1.035) Urine Protein Negative (Negative) Urine Glucose (UA) 2+ H (Negative) Urine Ketones Negative (Negative) Urine Blood Negative (Negative) Urine Nitrite Negative (Negative) Urine Bilirubin Negative (Negative) Urine Urobilinogen <2.0 (<2.0) mg/dL Ur Leukocyte Esterase Negative (Negative) 09/30/19 09/30/19 Range/Units 12:30 12:30 WBC 10.3 (3.8-10.6) k/uL RBC 4.66 (3.80-5.40) m/uL Hgb 14.9 (11.4-16.0) gm/dL Hct 45.7 (34.0-46.0) % MCV 98.1 (80.0-100.0) fL MCH 32.0 (25.0-35.0) pg MCHC 32.7 (31.0-37.0) g/dL RDW 12.3 (11.5-15.5) % Plt Count 246 (150-450) k/uL Neutrophils % 80 % Lymphocytes % 12 % Monocytes % 5 % Eosinophils % 2 % Basophils % 1 % Neutrophils # 8.3 H (1.3-7.7) k/uL Lymphocytes # 1.3 (1.0-4.8) k/uL Monocytes # 0.5 (0-1.0) k/uL Eosinophils # 0.2 (0-0.7) k/uL Basophils # 0.1 (0-0.2) k/uL PT 10.1 (9.0-12.0) sec INR 1.0 (<1.2) APTT 24.1 (22.0-30.0) sec Sodium (137-145) mmol/L Potassium (3.5-5.1) mmol/L Chloride (98-107) mmol/L Carbon Dioxide (22-30) mmol/L Anion Gap mmol/L BUN (7-17) mg/dL Creatinine (0.52-1.04) mg/dL Est GFR (CKD-EPI)AfAm (>60 ml/min/1.73 sqM) Est GFR (CKD-EPI)NonAf (>60 ml/min/1.73 sqM) Glucose (74-99) mg/dL Calcium (8.4-10.2) mg/dL Total Bilirubin (0.2-1.3) mg/dL AST (14-36) U/L ALT (4-34) U/L Alkaline Phosphatase (38-126) U/L Total Protein (6.3-8.2) g/dL Albumin (3.5-5.0) g/dL Amylase (30-110) U/L Lipase (23-300) U/L HCG, Quant mIU/mL Urine Color Urine Appearance (Clear) Urine pH (5.0-8.0) Ur Specific [place] (1.001-1.035) Urine Protein (Negative) Urine Glucose (UA) (Negative) Urine Ketones (Negative) Urine Blood (Negative) Urine Nitrite (Negative) Urine Bilirubin (Negative) Urine Urobilinogen (<2.0) mg/dL Ur Leukocyte Esterase (Negative) - Radiology Data Radiology results: report reviewed (Computed tomography scan of the abdomen pelvis shows right ovarian cyst. Diverticulosis without diverticulitis.) Disposition Clinical Impression: Abdominal pain Disposition: HOME SELF-CARE Condition: Stable Instructions (If sedation given, give patient instructions): Abdominal Pain (ED) Additional Instructions: Please follow-up with primary care physician in the next couple days for recheck. Return for fevers, increased pain, worsening symptoms or other concerns. Is patient prescribed a controlled substance at d/c from ED?: No Referrals: Suzy Yuan MD [Primary Care Provider] - 1-2 days Time of Disposition: 14:34
[2019-09-30 12:48] LABS: Appearance,Urine Clear (Clear); Bilirubin,Urine Negative (Negative); Color,Urine Yellow; Glucose,Urine (UA) 2+ (Negative); Ketones,Urine Negative (Negative); Protein,Urine Negative (Negative)
[2019-09-30 12:49] LABS: Blood,Urine Negative (Negative); Leukocyte Esterase,Urine Negative (Negative); Nitrite,Urine Negative (Negative); Urobilinogen,Urine <2.0 mg/dL (<2.0)
[2019-09-30 12:52] LABS: Basophils # (A) 0.1 k/uL (0-0.2); Basophils % (A) 1 %; Eosinophils # (A) 0.2 k/uL (0-0.7); Eosinophils % (A) 2 %; HCT 45.7 % (34.0-46.0); HGB 14.9 gm/dL (11.4-16.0); Lymphocytes # (A) 1.3 k/uL (1.0-4.8); Lymphocytes % (A) 12 %; MCHC 32.7 g/dL (31.0-37.0); MCV 98.1 fL (80.0-100.0); Mean Platelet Volume 7.5; Monocytes # (A) 0.5 k/uL (0-1.0); Monocytes % (A) 5 %; Neutrophils # (A) 8.3 k/uL (1.3-7.7); Neutrophils % (A) 80 %; Platelet Count 246 k/uL (150-450); RBC 4.66 m/uL (3.80-5.40); RDW 12.3 % (11.5-15.5); WBC 10.3 k/uL (3.8-10.6)
[2019-09-30 13:05] LABS: Partial Thromboplastin Time 24.1 sec (22.0-30.0); Prothrombin Time 10.1 sec (9.0-12.0)
[2019-09-30 13:17] LABS: ALT 23 U/L (4-34); AST 30 U/L (14-36); African American GFR (CKD) >90 (>60 ml/min/1.73 sqM); Albumin 4.4 g/dL (3.5-5.0); Alkaline Phosphatase 78 U/L (38-126); Amylase 60 U/L (30-110); Anion Gap 11 mmol/L; Blood Urea Nitrogen 19 mg/dL (7-17); Carbon Dioxide 20 mmol/L (22-30); Chloride 105 mmol/L (98-107); Glucose 190 mg/dL (74-99); Non-African American GFR(CKD) >90 (>60 ml/min/1.73 sqM); Potassium 4.2 mmol/L (3.5-5.1); Sodium 136 mmol/L (137-145); Total Bilirubin 0.6 mg/dL (0.2-1.3); Total Protein 7.5 g/dL (6.3-8.2)
--- NOTE | 2019-09-30 14:09 | CT ---
EXAMINATION TYPE: CT abdomen pelvis w con DATE OF EXAM: 09/30/2019 COMPARISON: None HISTORY: Lower abdominal pain CT DLP: 2058.3 mGycm Automated exposure control for dose reduction was used. CONTRAST: CT scan of the abdomen pelvis is performed with IV Contrast, patient injected with 100 mL of Isovue 3 00. FINDINGS- LUNG BASES-there are multiple sub-5 mm pulmonary nodule. No prior exams available for comparison. Cain undglass changes in the left lung most typical atelectasis.. LIVER/GB- No gross abnormality is appreciated. PANCREAS- No gross abnormality is seen. SPLEEN- No gross abnormality is seen. ADRENALS- No gross abnormality is seen. KIDNEYS/BLADDER- no hydronephrosis nephrolithiasis or renal mass. BOWEL-bowel gas pattern nonspecific with no evidence of obstruction. Normal appendix. Diverticulosis of the colon with no CT evidence of diverticulitis. LYMPH NODES- No greater than 1cm abdominal or pelvic lymph nodes areappreciated. OSSEOUS STRUCTURES-hypertrophic and degenerative changes spine.. OTHER- aorta of normal caliber. Small fat-containing periumbilical hernia noted. Of 4.2 cm right ov ondina cyst. Calcifications in the pelvis appear vascular. IMPRESSION- 1. Findings are suggestive a 4.2 cm right ovarian cyst. 2. Diverticulosis with no evidence of diverticulitis
[2019-09-30 14:46] VITALS: BP 132/65; PULSE 88; TEMP 97.9
== END 2019-09-30 14:40 | disposition home or self-care (01) ==
LOC: EC 11:52
DX: R10.32 Left lower quadrant pain (principal); R11.0 Nausea; E11.9 Type 2 diabetes mellitus without complications; F32.9 Major depressive disorder, single episode, unspecified; F17.200 Nicotine dependence, unspecified, uncomplicated; Z88.0 Allergy status to penicillin; Z79.84 Long term (current) use of oral hypoglycemic drugs; Z79.899 Other long term (current) drug therapy
CPT/HCPCS: 36415; 80053; 82150; 83690; 85025; 85610; 85730; 81003; 84702; 74177; 99284; 96374; 96375 ×2; 96361 ×2; J2405; J1170; C9113; Q9967

== ENCOUNTER 2019-12-11 12:05 | Emergency (ER) | payer OTHER ==
[2019-12-11 12:13] VITALS: RESP 18; TEMP 97.9
[2019-12-11] MEDS ORDERED: MORPHINE SULFATE 4 MG/ML SYRINGE IVP STA (12:38)
[2019-12-11 12:45] LABS: Basophils % (A) 1 %; Eosinophils # (A) 0.1 k/uL (0-0.7); Eosinophils % (A) 1 %; HCT 41.3 % (34.0-46.0); HGB 13.6 gm/dL (11.4-16.0); Lymphocytes # (A) 1.2 k/uL (1.0-4.8); Lymphocytes % (A) 15 %; MCH 32.2 pg (25.0-35.0); MCV 97.5 fL (80.0-100.0); Mean Platelet Volume 7.7; Monocytes # (A) 0.5 k/uL (0-1.0); Monocytes % (A) 6 %; Neutrophils # (A) 5.9 k/uL (1.3-7.7); Neutrophils % (A) 76 %; Platelet Count 237 k/uL (150-450); RBC 4.23 m/uL (3.80-5.40); WBC 7.8 k/uL (3.8-10.6)
--- NOTE | 2019-12-11 12:49 | ED ---
Abdominal Pain HPI - General Chief Complaint: Abdominal Pain Stated Complaint: abd pain Time Seen by Provider: 12/11/19 12:18 Source: patient Mode of arrival: ambulatory Limitations: no limitations - History of Present Illness Initial Comments: 34-year-old female with history of previous tubal ligation as well as uterine ablation performed in June by Dr. Moeller presenting to the emergency department today for chief complaint of left lower pelvic pain that radiates to the back. Patient states that since she has had her tubal ligation ablation she's had left lower pelvic cramping she states it feels like she is about to start her period but never has one. She states it radiates to her back with her previous period cramps. Patient states that she has bouts furthers increased pain one being in September and the other starting on Tuesday which is why she is presenting to the emergency department today she states she's had sharp pain in the left lower pelvic region that radiates towards the back. She denies this being the flank she denies being the upper abdomen. Patient denies any fever or diarrhea vomiting nausea hematuria history of kidney stones. Patient denies vaginal bleeding or discharge. Patient denies . Patient denies chest pain, SOB, cough. Patient has no additional complaints. Upon arrival she appears well there is no signs of acute distress. She is laughing and joking with the tech who is bedside--but states pain 10/10. - Related Data Home Medications Medication Instructions Recorded Confirmed Pioglitazone [Actos] 45 mg PO QAM 08/25/17 07/31/19 Sertraline [Zoloft] 100 mg PO HS 08/25/17 07/31/19 metFORMIN HCL 1,000 mg PO BID 08/25/17 07/31/19 Dulaglutide [Trulicity] 1.5 mg SQ TH 07/03/18 07/31/19 Lipitor(Unknown Dose) 1 tab PO HS 07/03/18 07/31/19 Dapagliflozin Propanediol [Farxiga] 10 mg PO HS 07/31/19 07/31/19 traMADol HCL 50 mg PO DIRECTED PRN 07/31/19 07/31/19 Previous Rx's Medication Instructions Recorded Hydrocodone/Acetaminophen [[place] 1 each PO Q6HR PRN #15 tab 08/02/19 5-325] Allergies Allergy/AdvReac Type Severity Reaction Status Date / Time amoxicillin Allergy Rash/Hives Verified 12/11/19 12:12 Review of Systems ROS Statement: Those systems with pertinent positive or pertinent negative responses have been documented in the HPI. ROS Other: All systems not noted in ROS Statement are negative. Past Medical History Past Medical History: Diabetes Mellitus History of Any Multi-Drug Resistant Organisms: None Reported Past Surgical History: Orthopedic Surgery Additional Past Surgical History / Comment(s): L knee Past Psychological History: Depression Smoking Status: Current every day smoker Past Alcohol Use History: Rare Past Drug Use History: None Reported General Exam - General Exam Comments Initial Comments: General: The patient is awake and alert, in no distress Eye: Pupils are equal, round and reactive to light, extra-ocular movements are intact. No nystagmus. There is normal conjunctiva bilaterally. No signs of icterus. Ears, nose, mouth and throat: There are moist mucous membranes and no oral lesions. Neck: The neck is supple, there is no tenderness or JVD. Cardiovascular: There is a regular rate and rhythm. No murmur, rub or gallop is appreciated. Respiratory: Lungs are clear to auscultation, respirations are non-labored, breath sounds are equal. No wheezes, stridor, rales, or rhonchi. Gastrointestinal: Soft, non-distended, non-tender abdomen, but what appears to tender LLQ of very low pelvic region, upper abdomen without tenderness, without masses or organomegaly noted. There is no rebound or guarding present. No CVA tenderness. Musculoskeletal: Normal ROM, no tenderness. Strength 5/5. Sensation intact. Pulses equal bilaterally 2+. Neurological: A&O x 3. CN II-XII intact grossly, There are no obvious motor or sensory deficits. Coordination appears grossly intact. Speech is normal. Skin: Skin is warm and dry and no rashes or lesions are noted. Psychiatric: Cooperative, appropriate mood & affect, normal judgment. Limitations: no limitations Course Vital Signs 12/11/19 12/11/19 12:10 14:18 Temperature 97.9 F Pulse Rate 89 88 Respiratory 18 18 Rate Blood Pressure 105/65 114/81 O2 Sat by Pulse 98 98 Oximetry Medical Decision Making - Medical Decision Making 34-year-old feel presenting today for chief complaint of cramping pelvic pain, ongoing since June. 2 exacerbations of slightly increased pain. Patient US right ovarian cyst. Left no ovarian lesions. Patient Lab stable, pain appears more consistent with patient description of pelvic pain rather than LLQ pain. Patient will be discharged with OB f/u recommendation, PCP f/u for sugars. Re turn parameters include immediate return for increasing pain/fevers. Patient discharged appearing well after discussing results/presentation/hx and exam with attending who is agreeable to care plan. - Lab Data Result diagrams: 12/11/19 12:34 12/11/19 12:34 Lab Results 12/11/19 12/11/19 12/11/19 Range/Units 12:34 12:34 12:34 WBC 7.8 (3.8-10.6) k/uL RBC 4.23 (3.80-5.40) m/uL Hgb 13.6 (11.4-16.0) gm/dL Hct 41.3 (34.0-46.0) % MCV 97.5 (80.0-100.0) fL MCH 32.2 (25.0-35.0) pg MCHC 33.0 (31.0-37.0) g/dL RDW 12.0 (11.5-15.5) % Plt Count 237 (150-450) k/uL Neutrophils % 76 % Lymphocytes % 15 % Monocytes % 6 % Eosinophils % 1 % Basophils % 1 % Neutrophils # 5.9 (1.3-7.7) k/uL Lymphocytes # 1.2 (1.0-4.8) k/uL Monocytes # 0.5 (0-1.0) k/uL Eosinophils # 0.1 (0-0.7) k/uL Basophils # 0.0 (0-0.2) k/uL Sodium 138 (137-145) mmol/L Potassium 4.2 (3.5-5.1) mmol/L Chloride 106 (98-107) mmol/L Carbon Dioxide 22 (22-30) mmol/L Anion Gap 10 mmol/L BUN 17 (7-17) mg/dL Creatinine 0.48 L (0.52-1.04) mg/dL Est GFR (CKD-EPI)AfAm >90 (>60 ml/min/1.73 sqM) Est GFR (CKD-EPI)NonAf >90 (>60 ml/min/1.73 sqM) Glucose 198 H (74-99) mg/dL Plasma Lactic Acid [place] 1.8 (0.7-2.0) mmol/L Calcium 9.0 (8.4-10.2) mg/dL Total Bilirubin 0.3 (0.2-1.3) mg/dL AST 15 (14-36) U/L ALT 17 (4-34) U/L Alkaline Phosphatase 69 (38-126) U/L Total Protein 6.9 (6.3-8.2) g/dL Albumin 4.0 (3.5-5.0) g/dL Lipase 86 (23-300) U/L Urine Color Urine Appearance (Clear) Urine pH (5.0-8.0) Ur Specific [place] (1.001-1.035) Urine Protein (Negative) Urine Glucose (UA) (Negative) Urine Ketones (Negative) Urine Blood (Negative) Urine Nitrite (Negative) Urine Bilirubin (Negative) Urine Urobilinogen (<2.0) mg/dL Ur Leukocyte Esterase (Negative) Urine HCG, Qual (Not Detectd) 12/11/19 12/11/19 Range/Units 13:05 13:05 WBC (3.8-10.6) k/uL RBC (3.80-5.40) m/uL Hgb (11.4-16.0) gm/dL Hct (34.0-46.0) % MCV (80.0-100.0) fL MCH (25.0-35.0) pg MCHC (31.0-37.0) g/dL RDW (11.5-15.5) % Plt Count (150-450) k/uL Neutrophils % % Lymphocytes % % Monocytes % % Eosinophils % % Basophils % % Neutrophils # (1.3-7.7) k/uL Lymphocytes # (1.0-4.8) k/uL Monocytes # (0-1.0) k/uL Eosinophils # (0-0.7) k/uL Basophils # (0-0.2) k/uL Sodium (137-145) mmol/L Potassium (3.5-5.1) mmol/L Chloride (98-107) mmol/L Carbon Dioxide (22-30) mmol/L Anion Gap mmol/L BUN (7-17) mg/dL Creatinine (0.52-1.04) mg/dL Est GFR (CKD-EPI)AfAm (>60 ml/min/1.73 sqM) Est GFR (CKD-EPI)NonAf (>60 ml/min/1.73 sqM) Glucose (74-99) mg/dL Plasma Lactic Acid [place] (0.7-2.0) mmol/L Calcium (8.4-10.2) mg/dL Total Bilirubin (0.2-1.3) mg/dL AST (14-36) U/L ALT (4-34) U/L Alkaline Phosphatase (38-126) U/L Total Protein (6.3-8.2) g/dL Albumin (3.5-5.0) g/dL Lipase (23-300) U/L Urine Color Yellow Urine Appearance Clear (Clear) Urine pH 5.5 (5.0-8.0) Ur Specific [place] 1.035 (1.001-1.035) Urine Protein Negative (Negative) Urine Glucose (UA) 4+ H (Negative) Urine Ketones Negative (Negative) Urine Blood Negative (Negative) Urine Nitrite Negative (Negative) Urine Bilirubin Negative (Negative) Urine Urobilinogen 2.0 (<2.0) mg/dL Ur Leukocyte Esterase Negative (Negative) Urine HCG, Qual Not Detected (Not Detectd) Disposition Clinical Impression: Pelvic pain, Elevated glucose, Glucose found in urine on examination Disposition: HOME SELF-CARE Condition: Good Instructions (If sedation given, give patient instructions): Pelvic Pain in Women (ED) Additional Instructions: Please use medication as discussed. Please follow-up with family doctor in the next 2 days, and Dr. Moeller whenenever she deems necessary within next month--please contact her office. Please return to emergency room if the symptoms increase or worsen or for any other concerns. Is patient prescribed a controlled substance at d/c from ED?: No Referrals: Suzy Yuan MD [Primary Care Provider] - 1-2 days Taylor Moeller DO [Doctor of Osteopathic Medicine] - 1-2 days Time of Disposition: 13:34
[2019-12-11 12:58] LABS: ALT 17 U/L (4-34); AST 15 U/L (14-36); African American GFR (CKD) >90 (>60 ml/min/1.73 sqM); Alkaline Phosphatase 69 U/L (38-126); Anion Gap 10 mmol/L; Blood Urea Nitrogen 17 mg/dL (7-17); Carbon Dioxide 22 mmol/L (22-30); Chloride 106 mmol/L (98-107); Glucose 198 mg/dL (74-99); Non-African American GFR(CKD) >90 (>60 ml/min/1.73 sqM); Potassium 4.2 mmol/L (3.5-5.1); Sodium 138 mmol/L (137-145); Total Bilirubin 0.3 mg/dL (0.2-1.3); Total Protein 6.9 g/dL (6.3-8.2)
--- NOTE | 2019-12-11 13:14 | US ---
EXAMINATION TYPE: US transvaginal DATE OF EXAM: 12/11/2019 COMPARISON: NONE CLINICAL HISTORY: left pelvic pain. TECHNIQUE: . Transvaginal sonographic images of the pelvis were acquired. Date of LMP: Patient states she doesn't have them anymore EXAM MEASUREMENTS: Uterus: 6.4 x 3.5 x 3.9 cm Endometrial Stripe: 0.3 cm Right Ovary: 3.3 x 3.3 x 1.7 cm Left Ovary: 2.5 x 2.0 x 1.5 cm 1. Uterus: Anteverted wnl 2. Endometrium: wnl 3. Right Ovary: Hypoechoic area measuring 1.4 x 1.6 x 1.8 cm appears to be assessed. 4. Left Ovary: wnl Spectral, color and waveform doppler imaging shows good arterial and venous flow within the ovaries ; there is no evidence for ovarian torsion. 5. Bilateral Adnexa: wnl 6. Posterior cul-de-sac: wnl IMPRESSION: 1. Right ovarian cyst.
[2019-12-11 13:22] LABS: Appearance,Urine Clear (Clear); Bilirubin,Urine Negative (Negative); Blood,Urine Negative (Negative); Color,Urine Yellow; Glucose,Urine (UA) 4+ (Negative); Ketones,Urine Negative (Negative); Leukocyte Esterase,Urine Negative (Negative); Nitrite,Urine Negative (Negative); PH, Urine 5.5 (5.0-8.0); Protein,Urine Negative (Negative); Specific Gravity,Urine 1.035 (1.001-1.035)
[2019-12-11] MEDS ORDERED: HYDROmorphone 0.5 MG/0.5 ML SYRINGE IVP STA (13:49)
[2019-12-11 14:22] VITALS: BP 114/81; PULSE 88
== END 2019-12-11 14:18 | disposition home or self-care (01) ==
LOC: EC 12:05
DX: R10.2 Pelvic and perineal pain (principal); R81 Glycosuria; N83.201 Unspecified ovarian cyst, right side; E11.9 Type 2 diabetes mellitus without complications; F32.9 Major depressive disorder, single episode, unspecified; F17.200 Nicotine dependence, unspecified, uncomplicated; Z79.84 Long term (current) use of oral hypoglycemic drugs; Z79.899 Other long term (current) drug therapy; Z88.0 Allergy status to penicillin
CPT/HCPCS: 36415; 80053; 83605; 83690; 85025; 81003; 81025; 93975; 76830; 99284; 96374; 96375; J2270; J1170

== ENCOUNTER 2019-12-12 06:32 | Emergency (ER) | payer OTHER ==
[2019-12-12 06:41] VITALS: RESP 18; TEMP 97.9
[2019-12-12] MEDS ORDERED: MORPHINE SULFATE 4 MG/ML SYRINGE IV STA (06:56)
[2019-12-12] MEDS ORDERED: ONDANSETRON 4 MG/2 ML VIAL IVP STA (06:56)
[2019-12-12] MEDS ORDERED: SODIUM CHLORIDE 0.9% 1,000 ML IV STA ×2 (06:56)
[2019-12-12] MEDS ORDERED: KETOROLAC 30 MG/ML 1 ML VIAL IVP STA (06:56)
--- NOTE | 2019-12-12 07:00 | ED ---
Abdominal Pain HPI - General Chief Complaint: Abdominal Pain Stated Complaint: abd pain Time Seen by Provider: 12/12/19 06:42 Source: patient, RN notes reviewed, old records reviewed Mode of arrival: ambulatory Limitations: no limitations - History of Present Illness Initial Comments: Patient is a 34-year-old female who presents emergency department today for evaluation with complaints of left lower quadrant abdominal pain and pelvic pain. Patient reports she was seen yesterday and was diagnosed with a right ovarian cyst after transvaginal ultrasound. She states that does not correlate with patient's location of pain. She is a diabetic. She denies any significant hematuria or diarrhea. She is complaining mild nausea but no vomiting. Patient denies any concern for sexually transmitted infections and denies any vaginal discharge. She had a negative test yesterday. Surgical history includes tubal ligation and uterine ablation. She is not had a menstrual period year. - Related Data Home Medications Medication Instructions Recorded Confirmed Pioglitazone [Actos] 45 mg PO QAM 08/25/17 07/31/19 Sertraline [Zoloft] 100 mg PO HS 08/25/17 07/31/19 metFORMIN HCL 1,000 mg PO BID 08/25/17 07/31/19 Dulaglutide [Trulicity] 1.5 mg SQ TH 07/03/18 07/31/19 Lipitor(Unknown Dose) 1 tab PO HS 07/03/18 07/31/19 Dapagliflozin Propanediol [Farxiga] 10 mg PO HS 07/31/19 07/31/19 traMADol HCL 50 mg PO DIRECTED PRN 07/31/19 07/31/19 Previous Rx's Medication Instructions Recorded Hydrocodone/Acetaminophen [[place] 1 each PO Q6HR PRN #15 tab 08/02/19 5-325] Ibuprofen [Motrin] 600 mg PO Q8HR PRN #20 tab 12/12/19 Allergies Allergy/AdvReac Type Severity Reaction Status Date / Time amoxicillin Allergy Rash/Hives Verified 12/12/19 06:41 Review of Systems ROS Statement: Those systems with pertinent positive or pertinent negative responses have been documented in the HPI. ROS Other: All systems not noted in ROS Statement are negative. Past Medical History Past Medical History: Diabetes Mellitus History of Any Multi-Drug Resistant Organisms: None Reported Past Surgical History: Orthopedic Surgery, Tubal Ligation Additional Past Surgical History / Comment(s): L knee Past Psychological History: Depression Smoking Status: Current every day smoker Past Alcohol Use History: Rare Past Drug Use History: None Reported General Exam - General Exam Comments Initial Comments: 34 year old female. No distress. Limitations: no limitations General appearance: alert, in no apparent distress Head exam: Present: atraumatic, normocephalic, normal inspection Eye exam: Present: normal appearance, PERRL, EOMI. Absent: scleral icterus, conjunctival injection, periorbital swelling ENT exam: Present: normal exam, mucous membranes moist Neck exam: Present: normal inspection. Absent: tenderness, meningismus, lymphadenopathy Respiratory exam: Present: normal lung sounds bilaterally. Absent: respiratory distress, wheezes, rales, rhonchi, stridor Cardiovascular Exam: Present: regular rate, normal rhythm, normal heart sounds. Absent: systolic murmur, diastolic murmur, rubs, gallop, clicks GI/Abdominal exam: Present: soft, normal bowel sounds. Absent: distended, tenderness, guarding, rebound, rigid Extremities exam: Present: normal inspection, full ROM, normal capillary refill. Absent: tenderness, pedal edema, joint swelling, calf tenderness Back exam: Present: normal inspection Neurological exam: Present: alert, oriented X3, CN II-XII intact Psychiatric exam: Present: normal affect, normal mood Skin exam: Present: warm, dry, intact, normal color. Absent: rash Course Vital Signs 12/12/19 06:39 Temperature 97.9 F Pulse Rate 76 Respiratory 18 Rate Blood Pressure 142/82 O2 Sat by Pulse 97 Oximetry Medical Decision Making - Medical Decision Making Patient is a 34-year-old female presents emergency room today for a second evaluation with chief complaint of left-sided lower quadrant pain into the groin and hip. Patient reports that she was seen yesterday had transvaginal ultraso und which showed a right ovarian cyst but no other source of patient's pain today. Patient denies any history of STDs or any vaginal discharge. Laboratory was unremarkable. She did have a KUB which question 18.5 cm left ureteral stone. Therefore Patient had a CT on pelvis without contrast. This is evidence of diverticulosis without diverticulitis. No signs of hydronephrosis or ureter stone. The Patient are likely phleboliths. Patient was informed of these results. Discussed possible endometriosis pain or abdominal muscle pain. Discussed that her labs and CT were otherwise unremarkable. I discussed discharge and Patient was reports aren't inflamed treatments and following up with her primary care doctor and possibly HOME CARE PHYSICAL THERAPIST. Patient is agreeable to treatment plan will comply. - Lab Data Result diagrams: 12/12/19 06:49 12/12/19 06:49 Lab Results 12/12/19 12/12/19 12/12/19 Range/Units 06:49 06:49 06:49 WBC 8.1 (3.8-10.6) k/uL RBC 4.38 (3.80-5.40) m/uL Hgb 14.0 (11.4-16.0) gm/dL Hct 43.0 (34.0-46.0) % MCV 98.2 (80.0-100.0) fL MCH 32.1 (25.0-35.0) pg MCHC 32.7 (31.0-37.0) g/dL RDW 12.1 (11.5-15.5) % Plt Count 244 (150-450) k/uL Neutrophils % 75 % Lymphocytes % 17 % Monocytes % 5 % Eosinophils % 2 % Basophils % 1 % Neutrophils # 6.1 (1.3-7.7) k/uL Lymphocytes # 1.3 (1.0-4.8) k/uL Monocytes # 0.4 (0-1.0) k/uL Eosinophils # 0.1 (0-0.7) k/uL Basophils # 0.1 (0-0.2) k/uL PT 9.6 (9.0-12.0) sec INR 0.9 (<1.2) APTT 23.4 (22.0-30.0) sec Sodium 135 L (137-145) mmol/L Potassium 4.7 (3.5-5.1) mmol/L Chloride 102 (98-107) mmol/L Carbon Dioxide 24 (22-30) mmol/L Anion Gap 9 mmol/L BUN 17 (7-17) mg/dL Creatinine 0.46 L (0.52-1.04) mg/dL Est GFR (CKD-EPI)AfAm >90 (>60 ml/min/1.73 sqM) Est GFR (CKD-EPI)NonAf >90 (>60 ml/min/1.73 sqM) Glucose 196 H (74-99) mg/dL Calcium 8.9 (8.4-10.2) mg/dL Total Bilirubin 0.6 (0.2-1.3) mg/dL AST 25 (14-36) U/L ALT 19 (4-34) U/L Alkaline Phosphatase 67 (38-126) U/L Total Protein 7.3 (6.3-8.2) g/dL Albumin 4.2 (3.5-5.0) g/dL Amylase 42 (30-110) U/L Lipase 96 (23-300) U/L Urine Color Urine Appearance (Clear) Urine pH (5.0-8.0) Ur Specific [place] (1.001-1.035) Urine Protein (Negative) Urine Glucose (UA) (Negative) Urine Ketones (Negative) Urine Blood (Negative) Urine Nitrite (Negative) Urine Bilirubin (Negative) Urine Urobilinogen (<2.0) mg/dL Ur Leukocyte Esterase (Negative) Urine RBC (0-5) /hpf Urine WBC (0-5) /hpf Ur Squamous Epith Cells (0-4) /hpf Hyaline Casts (0-2) /lpf Urine Mucus (None) /hpf 12/12/19 Range/Units 06:49 WBC (3.8-10.6) k/uL RBC (3.80-5.40) m/uL Hgb (11.4-16.0) gm/dL Hct (34.0-46.0) % MCV (80.0-100.0) fL MCH (25.0-35.0) pg MCHC (31.0-37.0) g/dL RDW (11.5-15.5) % Plt Count (150-450) k/uL Neutrophils % % Lymphocytes % % Monocytes % % Eosinophils % % Basophils % % Neutrophils # (1.3-7.7) k/uL Lymphocytes # (1.0-4.8) k/uL Monocytes # (0-1.0) k/uL Eosinophils # (0-0.7) k/uL Basophils # (0-0.2) k/uL PT (9.0-12.0) sec INR (<1.2) APTT (22.0-30.0) sec Sodium (137-145) mmol/L Potassium (3.5-5.1) mmol/L Chloride (98-107) mmol/L Carbon Dioxide (22-30) mmol/L Anion Gap mmol/L BUN (7-17) mg/dL Creatinine (0.52-1.04) mg/dL Est GFR (CKD-EPI)AfAm (>60 ml/min/1.73 sqM) Est GFR (CKD-EPI)NonAf (>60 ml/min/1.73 sqM) Glucose (74-99) mg/dL Calcium (8.4-10.2) mg/dL Total Bilirubin (0.2-1.3) mg/dL AST (14-36) U/L ALT (4-34) U/L Alkaline Phosphatase (38-126) U/L Total Protein (6.3-8.2) g/dL Albumin (3.5-5.0) g/dL Amylase (30-110) U/L Lipase (23-300) U/L Urine Color Light Yellow Urine Appearance Clear (Clear) Urine pH 5.0 (5.0-8.0) Ur Specific [place] 1.008 (1.001-1.035) Urine Protein Negative (Negative) Urine Glucose (UA) 1+ H (Negative) Urine Ketones Negative (Negative) Urine Blood Negative (Negative) Urine Nitrite Negative (Negative) Urine Bilirubin Negative (Negative) Urine Urobilinogen <2.0 (<2.0) mg/dL Ur Leukocyte Esterase Trace H (Negative) Urine RBC 1 (0-5) /hpf Urine WBC 1 (0-5) /hpf Ur Squamous Epith Cells 4 (0-4) /hpf Hyaline Casts 1 (0-2) /lpf Urine Mucus Rare H (None) /hpf - Radiology Data Radiology results: report reviewed KUB shows evidence of a 0.5 cm distal left ureteral stone is not excluded. Nonspecific abdomen. CT abdomen pelvis without contrast shows diverticulosis without diverticulitis. No suspicious abnormality to account for left lower socorro drant abdominal pain. Disposition Clinical Impression: Left lateral abdominal pain Disposition: HOME SELF-CARE Condition: Good Instructions (If sedation given, give patient instructions): Abdominal Pain (ED) Additional Instructions: Follow up with PCP and return to ED if any alarming signs or symptoms occur. Take antiinflammatory medication as prescribed. Prescriptions: Ibuprofen [Motrin] 600 mg PO Q8HR PRN #20 tab PRN Reason: Pain Is patient prescribed a controlled substance at d/c from ED?: No Referrals: Suzy Yuan MD [Primary Care Provider] - 1-2 days Time of Disposition: 09:03
--- NOTE | 2019-12-12 07:25 | XR ---
EXAMINATION TYPE: XR KUB DATE OF EXAM: 12/12/2019 COMPARISON: None INDICATION: Abdomen pain left lower quadrant x3 days TECHNIQUE: Single view abdomen upright view FINDINGS: There is a normal bowel gas pattern. Air is within the colon. Some nonspecific small bowel gas may be within the midabdomen. Psoas margins are normal. No organomegaly is present. A 0.5 cm calcification may be in the left hemipelvis. Consider a distal left ureteral stone. IMPRESSION: 1. 0.5 cm distal left ureteral stone is not excluded. 2. Nonspecific abdomen
[2019-12-12 07:34] LABS: Basophils # (A) 0.1 k/uL (0-0.2); Basophils % (A) 1 %; Eosinophils # (A) 0.1 k/uL (0-0.7); Eosinophils % (A) 2 %; Lymphocytes # (A) 1.3 k/uL (1.0-4.8); Lymphocytes % (A) 17 %; MCH 32.1 pg (25.0-35.0); MCHC 32.7 g/dL (31.0-37.0); MCV 98.2 fL (80.0-100.0); Mean Platelet Volume 7.7; Monocytes # (A) 0.4 k/uL (0-1.0); Monocytes % (A) 5 %; Neutrophils # (A) 6.1 k/uL (1.3-7.7); Neutrophils % (A) 75 %; Platelet Count 244 k/uL (150-450); RBC 4.38 m/uL (3.80-5.40); RDW 12.1 % (11.5-15.5); WBC 8.1 k/uL (3.8-10.6)
[2019-12-12 07:36] LABS: Appearance,Urine Clear (Clear); Bilirubin,Urine Negative (Negative); Blood,Urine Negative (Negative); Color,Urine Light Yellow; Glucose,Urine (UA) 1+ (Negative); Hyaline Casts,Urine 1 /lpf (0-2); Ketones,Urine Negative (Negative); Leukocyte Esterase,Urine Trace (Negative); Mucus,Urine Rare /hpf; Nitrite,Urine Negative (Negative); Protein,Urine Negative (Negative); RBC,Urine 1 /hpf (0-5); Specific Gravity,Urine 1.008 (1.001-1.035); Squamous Epithelial Cell,Urine 4 /hpf (0-4); Urobilinogen,Urine <2.0 mg/dL (<2.0); WBC,Urine 1 /hpf (0-5)
[2019-12-12 07:44] LABS: INR 0.9 (<1.2); Partial Thromboplastin Time 23.4 sec (22.0-30.0); Prothrombin Time 9.6 sec (9.0-12.0)
[2019-12-12 07:53] LABS: ALT 19 U/L (4-34); AST 25 U/L (14-36); African American GFR (CKD) >90 (>60 ml/min/1.73 sqM); Albumin 4.2 g/dL (3.5-5.0); Alkaline Phosphatase 67 U/L (38-126); Amylase 42 U/L (30-110); Anion Gap 9 mmol/L; Blood Urea Nitrogen 17 mg/dL (7-17); Calcium 8.9 mg/dL (8.4-10.2); Carbon Dioxide 24 mmol/L (22-30); Chloride 102 mmol/L (98-107); Glucose 196 mg/dL (74-99); Non-African American GFR(CKD) >90 (>60 ml/min/1.73 sqM); Sodium 135 mmol/L (137-145); Total Bilirubin 0.6 mg/dL (0.2-1.3); Total Protein 7.3 g/dL (6.3-8.2)
[2019-12-12 07:54] LABS: Potassium 4.7 mmol/L (3.5-5.1)
--- NOTE | 2019-12-12 08:44 | CT ---
EXAMINATION TYPE: CT abdomen pelvis wo con DATE OF EXAM: 12/12/2019 COMPARISON: 09/30/2019 INDICATION: LLQ pain DLP: 1443 mGycm, Automated exposure control for dose reduction was used. CONTRAST: mL of . Study performed without Oral Contrast TECHNIQUE: Axial images were obtained from above the diaphragm to the pubic rami in the axial plane a t 5 mm thick sections. Reconstructed images are reviewed on the computer in the coronal plane. FINDINGS: Limited CT sections are obtained the lung bases. The lung bases are clear. CT ABDOMEN: Liver: Normal Spleen: Normal Pancreas: Normal Adrenal glands: The adrenal glands are normal. Gallbladder: Some faint gallbladder stones or sludge may be present. Kidneys: No masses are evident. No hydronephrosis is present. No cysts are present. No renal stone s are evident. Aorta: Vascular calcification is within the aorta. Inferior vena cava: Normal. CT PELVIS: Diverticular changes are within the sigmoid colon. No acute diverticulitis is evident. Large fecal smita lan at the level the rectum. Studies without oral contrast limiting bowel evaluation. Appendix: Normal as visualized. Urinary bladder: Normal. Genitourinary structures: Uterus is normal. There is slight fullness of the right ovary. No suspiciou s masses or cysts are evident. Left adnexal region may have a cyst present. Osseous structures: No suspicious lytic or sclerotic lesions. IMPRESSIONS: 1. Diverticulosis without acute diverticulitis. 2. No suspicious abnormality to account for left lower quadrant pain
[2019-12-12] MEDS ORDERED: ACET/COD 300 MG/30 MG STARTER PACK 6 TAB BTL PO STA (09:00)
[2019-12-12 09:22] VITALS: BP 102/62; PULSE 69
== END 2019-12-12 09:21 | disposition home or self-care (01) ==
LOC: EC 06:32
DX: R10.32 Left lower quadrant pain (principal); R10.2 Pelvic and perineal pain; R11.0 Nausea; N83.201 Unspecified ovarian cyst, right side; K57.90 Diverticulosis of intestine, part unspecified, without perforation or abscess without bleeding; E11.9 Type 2 diabetes mellitus without complications; F32.9 Major depressive disorder, single episode, unspecified; F17.200 Nicotine dependence, unspecified, uncomplicated; Z79.84 Long term (current) use of oral hypoglycemic drugs; Z79.899 Other long term (current) drug therapy; Z88.0 Allergy status to penicillin
CPT/HCPCS: 36415; 80053; 82150; 83690; 85025; 85610; 85730; 81001; 74018; 74176; 99285; 96374; 96375 ×2; 96361 ×2; J2270; J2405; J1885

== ENCOUNTER 2020-02-27 04:11 | Emergency (ER) | payer OTHER ==
[2020-02-27 04:20] VITALS: RESP 18; TEMP 97.7
[2020-02-27] MEDS ORDERED: ONDANSETRON 4 MG/2 ML VIAL IVP STA (04:25)
[2020-02-27] MEDS ORDERED: MORPHINE SULFATE 4 MG/ML SYRINGE IV STA (04:25)
[2020-02-27] MEDS ORDERED: SODIUM CHLORIDE 0.9% 1,000 ML IV STA (04:25)
[2020-02-27 04:52] LABS: Basophils % (A) 0 %; Eosinophils # (A) 0.2 k/uL (0-0.7); Eosinophils % (A) 2 %; HCT 45.2 % (34.0-46.0); HGB 14.6 gm/dL (11.4-16.0); Lymphocytes # (A) 1.3 k/uL (1.0-4.8); Lymphocytes % (A) 11 %; MCH 31.5 pg (25.0-35.0); MCHC 32.3 g/dL (31.0-37.0); MCV 97.6 fL (80.0-100.0); Mean Platelet Volume 7.5; Monocytes # (A) 0.4 k/uL (0-1.0); Monocytes % (A) 4 %; Neutrophils # (A) 10.1 k/uL (1.3-7.7); Neutrophils % (A) 83 %; Platelet Count 283 k/uL (150-450); RBC 4.63 m/uL (3.80-5.40); RDW 12.3 % (11.5-15.5); WBC 12.2 k/uL (3.8-10.6)
[2020-02-27 04:59] LABS: ALT 22 U/L (4-34); AST 21 U/L (14-36); African American GFR (CKD) >90 (>60 ml/min/1.73 sqM); Albumin 4.6 g/dL (3.5-5.0); Alkaline Phosphatase 69 U/L (38-126); Anion Gap 12 mmol/L; Blood Urea Nitrogen 16 mg/dL (7-17); Calcium 9.1 mg/dL (8.4-10.2); Carbon Dioxide 22 mmol/L (22-30); Chloride 101 mmol/L (98-107); Glucose 147 mg/dL (74-99); Non-African American GFR(CKD) >90 (>60 ml/min/1.73 sqM); Potassium 4.3 mmol/L (3.5-5.1); Sodium 135 mmol/L (137-145); Total Bilirubin 0.7 mg/dL (0.2-1.3); Total Protein 7.4 g/dL (6.3-8.2)
--- NOTE | 2020-02-27 05:03 | ED ---
Abdominal Pain HPI - General Chief Complaint: Abdominal Pain Stated Complaint: Abd pain Time Seen by Provider: 02/27/20 04:25 Source: patient Limitations: no limitations - History of Present Illness Initial Comments: Josephine is a 34-year-old female who presents the emergency department today for evaluation of recurrent left lower quadrant abdominal pain. Patient reports she's been suffering from chronic left lower quadrant and pelvic pain for a number of months. She is undergoing multiple ER evaluations. She was seen and evaluated as a ER yesterday she was diagnosed with a urinary tract infection discharge home. Patient reports that despite receiving pain medications in the house ER she has persistent pain in her left lower quadrant. Patient states the pain is sharp in the left lower quadrant with associated sense of constipation. No nausea, no vomiting no vaginal discharge. She does not have menses due to previous ablation. She's had small ovarian cysts in the past never required operation. - Related Data Home Medications Medication Instructions Recorded Confirmed Pioglitazone [Actos] 45 mg PO QAM 08/25/17 07/31/19 Sertraline [Zoloft] 100 mg PO HS 08/25/17 07/31/19 metFORMIN HCL 1,000 mg PO BID 08/25/17 07/31/19 Dulaglutide [Trulicity] 1.5 mg SQ TH 07/03/18 07/31/19 Lipitor(Unknown Dose) 1 tab PO HS 07/03/18 07/31/19 Dapagliflozin Propanediol [Farxiga] 10 mg PO HS 07/31/19 07/31/19 traMADol HCL 50 mg PO DIRECTED PRN 07/31/19 07/31/19 Previous Rx's Medication Instructions Recorded Hydrocodone/Acetaminophen [[place] 1 each PO Q6HR PRN #15 tab 08/02/19 5-325] Ibuprofen [Motrin] 600 mg PO Q8HR PRN #20 tab 12/12/19 Allergies Allergy/AdvReac Type Severity Reaction Status Date / Time amoxicillin Allergy Rash/Hives Verified 02/27/20 04:20 Review of Systems ROS Statement: Those systems with pertinent positive or pertinent negative responses have been documented in the HPI. ROS Other: All systems not noted in ROS Statement are negative. Past Medical History Past Medical History: Diabetes Mellitus History of Any Multi-Drug Resistant Organisms: None Reported Past Surgical History: Orthopedic Surgery, Tubal Ligation Additional Past Surgical History / Comment(s): L knee Past Psychological History: Depression Smoking Status: Current some day smoker Past Alcohol Use History: Rare Past Drug Use History: None Reported General Exam - General Exam Comments Initial Comments: Physical Exam GENERAL: Yelling out in pain, crying loudly, no tears noted HENT: Normocephalic, Atraumatic. EYES: PERRL, EOMI PULMONARY: Unlabored respirations. CARDIOVASCULAR: RRR Warm and well perfused extremities ABDOMEN: Non-distended Soft Tenderness to palpation in the RLQ SKIN: No rashes or bruising : Deferred NEUROLOGIC: Alert and oriented Normal speech Normal gait MUSCULOSKELETAL: Moving all extremities with no apparent injury PSYCHIATRIC: No SI/HI Limitations: no limitations Course Vital Signs 02/27/20 02/27/20 02/27/20 04:16 06:00 06:15 Temperature 97.7 F 97.7 F Pulse Rate 90 78 Respiratory 18 18 Rate Blood Pressure 144/76 142/86 O2 Sat by Pulse 100 100 Oximetry Medical Decision Making - Medical Decision Making Patient was seen and evaluated upon arrival to the emergency department Patient with chronic left lower quadrant abdominal pain, patient states specifically that only Dilaudid helps her pain Reports she underwent evaluation at outside hospital yesterday was discharged home Review of medical records reveals frequent visits for similar complaints with no acute findings Patient has not had any follow-up with GI or gynecology over the past few months due to the symptoms Plan repeat labs were obtained Outside records were requested 5:35am Patient again requesting Dilaudid by name, stating that it is the only medication that works for her Review of chart from yesterday [facility] reveals patient had thorough workup including CBC CMP urinalysis CT scan Patient's computed tomography scan was unremarkable there are no obvious ovarian cysts, no acute GI pathology Patient was advised to follow up with GI for her chronic intractable abdominal pain Patient was diagnosed with a urinary tract infection discharge home on oral Cipro The review of the patient's chart reveals that she has been suffering from pelvic pain for a number of years, she seems to have worsening chronic abdominal pain in the past year. She's had 4 CT scans and some pelvic ultrasounds in the past 6 months. There've been no acute findings. I discussed with the patient the need to follow up with gastroenterology and gynecology for pelvic pain. Patient is status post tubal ligation and duration therefore doesn't have menstrual cycles, cannot comment on if her pelvic pain is cyclic in nature or could be related to hormonal cycling. Does not have any previous history of endometriosis. 6:14am Less than 5 minutes after receiving Haldol patient is again stating that the medications are not working and she needs Dilaudid for her pain 6:45 AM Patient reports her pain is decreased to 3 out of 10 intensity states she like to go home because she would like to sleep in her own bed at this time - Lab Data Result diagrams: 02/27/20 04:44 02/27/20 04:44 Lab Results 02/27/20 02/27/20 02/27/20 Range/Units 04:44 04:44 04:56 WBC 12.2 H (3.8-10.6) k/uL RBC 4.63 (3.80-5.40) m/uL Hgb 14.6 (11.4-16.0) gm/dL Hct 45.2 (34.0-46.0) % MCV 97.6 (80.0-100.0) fL MCH 31.5 (25.0-35.0) pg MCHC 32.3 (31.0-37.0) g/dL RDW 12.3 (11.5-15.5) % Plt Count 283 (150-450) k/uL Neutrophils % 83 % Lymphocytes % 11 % Monocytes % 4 % Eosinophils % 2 % Basophils % 0 % Neutrophils # 10.1 H (1.3-7.7) k/uL Lymphocytes # 1.3 (1.0-4.8) k/uL Monocytes # 0.4 (0-1.0) k/uL Eosinophils # 0.2 (0-0.7) k/uL Basophils # 0.0 (0-0.2) k/uL Sodium 135 L (137-145) mmol/L Potassium 4.3 (3.5-5.1) mmol/L Chloride 101 (98-107) mmol/L Carbon Dioxide 22 (22-30) mmol/L Anion Gap 12 mmol/L BUN 16 (7-17) mg/dL Creatinine 0.56 (0.52-1.04) mg/dL Est GFR (CKD-EPI)AfAm >90 (>60 ml/min/1.73 sqM) Est GFR (CKD-EPI)NonAf >90 (>60 ml/min/1.73 sqM) Glucose 147 H (74-99) mg/dL Calcium 9.1 (8.4-10.2) mg/dL Total Bilirubin 0.7 (0.2-1.3) mg/dL AST 21 (14-36) U/L ALT 22 (4-34) U/L Alkaline Phosphatase 69 (38-126) U/L Total Protein 7.4 (6.3-8.2) g/dL Albumin 4.6 (3.5-5.0) g/dL Lipase 290 (23-300) U/L Urine Color Yellow Urine Appearance Cloudy H (Clear) Urine pH 5.0 (5.0-8.0) Ur Specific [place] 1.047 H (1.001-1.035) Urine Protein Trace H (Negative) Urine Glucose (UA) 4+ H (Negative) Urine Ketones 4+ H (Negative) Urine Blood Small H (Negative) Urine Nitrite Negative (Negative) Urine Bilirubin Negative (Negative) Urine Urobilinogen <2.0 (<2.0) mg/dL Ur Leukocyte Esterase Large H (Negative) Urine RBC 132 H (0-5) /hpf Urine WBC 36 H (0-5) /hpf Ur Squamous Epith Cells 13 H (0-4) /hpf Urine Bacteria Rare H (None) /hpf Urine Mucus Rare H (None) /hpf Urine HCG, Qual (Not Detectd) 02/27/20 Range/Units 04:56 WBC (3.8-10.6) k/uL RBC (3.80-5.40) m/uL Hgb (11.4-16.0) gm/dL Hct (34.0-46.0) % MCV (80.0-100.0) fL MCH (25.0-35.0) pg MCHC (31.0-37.0) g/dL RDW (11.5-15.5) % Plt Count (150-450) k/uL Neutrophils % % Lymphocytes % % Monocytes % % Eosinophils % % Basophils % % Neutrophils # (1.3-7.7) k/uL Lymphocytes # (1.0-4.8) k/uL Monocytes # (0-1.0) k/uL Eosinophils # (0-0.7) k/uL Basophils # (0-0.2) k/uL Sodium (137-145) mmol/L Potassium (3.5-5.1) mmol/L Chloride (98-107) mmol/L Carbon Dioxide (22-30) mmol/L Anion Gap mmol/L BUN (7-17) mg/dL Creatinine (0.52-1.04) mg/dL Est GFR (CKD-EPI)AfAm (>60 ml/min/1.73 sqM) Est GFR (CKD-EPI)NonAf (>60 ml/min/1.73 sqM) Glucose (74-99) mg/dL Calcium (8.4-10.2) mg/dL Total Bilirubin (0.2-1.3) mg/dL AST (14-36) U/L ALT (4-34) U/L Alkaline Phosphatase (38-126) U/L Total Protein (6.3-8.2) g/dL Albumin (3.5-5.0) g/dL Lipase (23-300) U/L Urine Color Urine Appearance (Clear) Urine pH (5.0-8.0) Ur Specific [place] (1.001-1.035) Urine Protein (Negative) Urine Glucose (UA) (Negative) Urine Ketones (Negative) Urine Blood (Negative) Urine Nitrite (Negative) Urine Bilirubin (Negative) Urine Urobilinogen (<2.0) mg/dL Ur Leukocyte Esterase (Negative) Urine RBC (0-5) /hpf Urine WBC (0-5) /hpf Ur Squamous Epith Cells (0-4) /hpf Urine Bacteria (None) /hpf Urine Mucus (None) /hpf Urine HCG, Qual Not Detected (Not Detectd) - EKG Data -: EKG Interpreted by Me EKG Comments: EKG was obtained to evaluate intervals prior to medication administration. EKG was obtained at 6 AM, rate is 63 rhythm is sinus, normal axis, normal intervals, GA 126, QRS 90, QTc is [address] elevations or depressions no evidence of acute or ischemia or infarction. Disposition Clinical Impression: Abdominal pain, Drug-seeking behavior Disposition: HOME SELF-CARE Condition: Stable Instructions (If sedation given, give patient instructions): Abdominal Pain (ED) Additional Instructions: You need to follow up with GI and Industrial Real Estate [employer] for further evaluation of chronic abdominal pain Continue to drink plenty of fluids and stay hydrated to prevent constipation Return to the ER for re-evaluation if you have any worsening Is patient prescribed a controlled substance at d/c from ED?: No Referrals: Suzy Yuan MD [Primary Care Provider] - 1-2 days
[2020-02-27 05:06] LABS: Appearance,Urine Cloudy (Clear); Bacteria,Urine Rare /hpf; Bilirubin,Urine Negative (Negative); Blood,Urine Small (Negative); Color,Urine Yellow; Glucose,Urine (UA) 4+ (Negative); Leukocyte Esterase,Urine Large (Negative); Mucus,Urine Rare /hpf; Nitrite,Urine Negative (Negative); Protein,Urine Trace (Negative); RBC,Urine 132 /hpf (0-5); Squamous Epithelial Cell,Urine 13 /hpf (0-4); Urobilinogen,Urine <2.0 mg/dL (<2.0); WBC,Urine 36 /hpf (0-5)
[2020-02-27] MEDS ORDERED: KETOROLAC 30 MG/ML 1 ML VIAL IVP STA (05:13)
[2020-02-27 05:20] LABS: Ketones,Urine 4+ (Negative); Specific Gravity,Urine 1.047 (1.001-1.035)
[2020-02-27] MEDS ORDERED: HALOPERIDOL LACTATE 5 MG/ML 1 ML VIAL IVP STA (05:50)
[2020-02-27 06:07] VITALS: BP 142/86; PULSE 78
== END 2020-02-27 06:59 | disposition home or self-care (01) ==
LOC: EC 04:11
DX: R10.32 Left lower quadrant pain (principal); Z76.5 Malingerer [conscious simulation]; R10.2 Pelvic and perineal pain; G89.29 Other chronic pain; E11.9 Type 2 diabetes mellitus without complications; F32.9 Major depressive disorder, single episode, unspecified; F17.200 Nicotine dependence, unspecified, uncomplicated; Z98.51 Tubal ligation status; Z79.84 Long term (current) use of oral hypoglycemic drugs; Z79.899 Other long term (current) drug therapy; Z88.0 Allergy status to penicillin
CPT/HCPCS: 36415; 93005; 80053; 83690; 85025; 81001; 81025; 87086; 99284; 96374; 96375 ×3; 96361 ×2; J2270; J1630; J2405; J1885

== ENCOUNTER 2020-04-21 16:27 | Emergency (ER) | payer OTHER ==
[2020-04-21 16:36] VITALS: BP 117/58; PULSE 99; RESP 18; TEMP 98.1
[2020-04-21] MEDS ORDERED: ONDANSETRON 4 MG/2 ML VIAL IVP STA (16:51)
[2020-04-21] MEDS ORDERED: HYDROmorphone 0.5 MG/0.5 ML SYRINGE IVP STA (16:51)
[2020-04-21] MEDS ORDERED: SODIUM CHLORIDE 0.9% 1,000 ML IV STA (16:51)
--- NOTE | 2020-04-21 16:52 | ED ---
Abdominal Pain HPI - General Chief Complaint: Abdominal Pain Stated Complaint: abd pain Time Seen by Provider: 04/21/20 16:39 Source: patient Mode of arrival: ambulatory - History of Present Illness Initial Comments: Patient is a 34-year-old female presenting to the emergency department with a chief complaint of abdominal pain. Patient reports the abdominal pain has been on one for the past few days with gradual increase in severity. Patient reports she's been having problems with pain in the left lower quadrant region since the beginning of this year and she has been evaluated multiple times in the ED with multiple CT scans finding no significant etiology for the pain. Patient states there is ago she followed up with who diagnosed her with diverticulosis and advised her to go to the ED if she develops pain in the region because that could indicate diverticulitis. Patient denies any nausea or vomiting diarrhea. Denies any signs of constipation. Denies any night sweats or chills. Denies any chest pain shortness of breath. Denies any urinary or vaginal symptoms. - Related Data Home Medications Medication Instructions Recorded Confirmed Pioglitazone [Actos] 45 mg PO QAM 08/25/17 07/31/19 Sertraline [Zoloft] 100 mg PO HS 08/25/17 07/31/19 metFORMIN HCL 1,000 mg PO BID 08/25/17 07/31/19 Dulaglutide [Trulicity] 1.5 mg SQ TH 07/03/18 07/31/19 Lipitor(Unknown Dose) 1 tab PO HS 07/03/18 07/31/19 Dapagliflozin Propanediol [Farxiga] 10 mg PO HS 07/31/19 07/31/19 traMADol HCL 50 mg PO DIRECTED PRN 07/31/19 07/31/19 Previous Rx's Medication Instructions Recorded Hydrocodone/Acetaminophen [Osyka 1 each PO Q6HR PRN #15 tab 08/02/19 5-325] Ibuprofen [Motrin] 600 mg PO Q8HR PRN #20 tab 12/12/19 Amoxicillin/Potassium Clav 1 tab PO Q12HR #20 tab 04/21/20 [Augmentin 875-125 Tablet] Allergies Allergy/AdvReac Type Severity Reaction Status Date / Time amoxicillin Allergy Rash/Hives Verified 04/21/20 16:35 Review of Systems ROS Statement: Those systems with pertinent positive or pertinent negative responses have been documented in the HPI. ROS Other: All systems not noted in ROS Statement are negative. Past Medical History Past Medical History: Diabetes Mellitus History of Any Multi-Drug Resistant Organisms: None Reported Past Surgical History: Orthopedic Surgery, Tubal Ligation Additional Past Surgical History / Comment(s): L knee Past Psychological History: Depression Smoking Status: Current some day smoker Past Alcohol Use History: Rare Past Drug Use History: None Reported General Exam Limitations: no limitations General appearance: alert, in no apparent distress Head exam: Present: atraumatic, normocephalic, normal inspection Eye exam: Present: normal appearance, PERRL, EOMI Pupils: Present: normal accommodation ENT exam: Present: normal exam, normal oropharynx, mucous membranes moist. Absent: TM's normal bilaterally, normal external ear exam Neck exam: Present: normal inspection, full ROM. Absent: tenderness, meningismu s Respiratory exam: Present: normal lung sounds bilaterally. Absent: respiratory distress, wheezes, rales Cardiovascular Exam: Present: regular rate, normal rhythm, normal heart sounds GI/Abdominal exam: Present: soft, tenderness (Left lower quadrant abdominal pain.), normal bowel sounds. Absent: distended, guarding, rebound, rigid Extremities exam: Present: normal inspection, full ROM, normal capillary refill. Absent: tenderness Back exam: Present: normal inspection, full ROM. Absent: tenderness, CVA tenderness (R), CVA tenderness (L) Neurological exam: Present: alert, oriented X3 Psychiatric exam: Present: normal affect, normal mood Skin exam: Present: warm, dry, intact, normal color Course Vital Signs 04/21/20 16:34 Temperature 98.1 F Pulse Rate 99 Respiratory 18 Rate Blood Pressure 117/58 O2 Sat by Pulse 98 Oximetry Medical Decision Making - Medical Decision Making Patient is a 34-year-old male presenting to emergency Department with a chief complaint abdominal pain. On initial evaluation, patient does have left lower quadrant pain. No CVA tenderness. Patient was given analgesia, antiemetics and fluids in the ED. CBC revealed mild leukocytosis of 11.1 K[address] Her most recent CT of abdomen and pelvis revealed diverticulosis without diverticulitis. Shared decision making was discussed regarding CT imaging, patient declined. Patient states she would rather be treated for diverticulitis. Patient started on Augmentin. Will be discharged with 10 day course of Augmentin. I advised her to follow a specific diverticulitis that. She will also be discharged with Zofran. Strict return problems were thoroughly discussed with patient was understanding and agreeable. She will follow-up with her GI specialist. Case discussed with physician. - Lab Data Result diagrams: 04/21/20 17:00 04/21/20 17:00 Lab Results 04/21/20 04/21/20 04/21/20 Range/Units 17:00 17:00 17:07 WBC 11.1 H (3.8-10.6) k/uL RBC 4.43 (3.80-5.40) m/uL Hgb 13.9 (11.4-16.0) gm/dL Hct 42.5 (34.0-46.0) % MCV 96.1 (80.0-100.0) fL MCH 31.4 (25.0-35.0) pg MCHC 32.7 (31.0-37.0) g/dL RDW 12.3 (11.5-15.5) % Plt Count 264 (150-450) k/uL Neutrophils % 75 % Lymphocytes % 16 % Monocytes % 5 % Eosinophils % 2 % Basophils % 1 % Neutrophils # 8.4 H (1.3-7.7) k/uL Lymphocytes # 1.8 (1.0-4.8) k/uL Monocytes # 0.5 (0-1.0) k/uL Eosinophils # 0.2 (0-0.7) k/uL Basophils # 0.1 (0-0.2) k/uL Sodium 137 (137-145) mmol/L Potassium 4.0 (3.5-5.1) mmol/L Chloride 103 (98-107) mmol/L Carbon Dioxide 25 (22-30) mmol/L Anion Gap 9 mmol/L BUN 21 H (7-17) mg/dL Creatinine 0.52 (0.52-1.04) mg/dL Est GFR (CKD-EPI)AfAm >90 (>60 ml/min/1.73 sqM) Est GFR (CKD-EPI)NonAf >90 (>60 ml/min/1.73 sqM) Glucose 112 H (74-99) mg/dL Calcium 9.3 (8.4-10.2) mg/dL Total Bilirubin 0.3 (0.2-1.3) mg/dL AST 26 (14-36) U/L ALT 15 (4-34) U/L Alkaline Phosphatase 71 (38-126) U/L Total Protein 7.0 (6.3-8.2) g/dL Albumin 4.2 (3.5-5.0) g/dL Lipase 158 (23-300) U/L Urine Color Yellow Urine Appearance Cloudy H (Clear) Urine pH 5.5 (5.0-8.0) Ur Specific [place] 1.040 H (1.001-1.035) Urine Protein Negative (Negative) Urine Glucose (UA) 4+ H (Negative) Urine Ketones Negative (Negative) Urine Blood Trace H (Negative) Urine Nitrite Negative (Negative) Urine Bilirubin Negative (Negative) Urine Urobilinogen <2.0 (<2.0) mg/dL Ur Leukocyte Esterase Large H (Negative) Urine RBC 31 H (0-5) /hpf Urine WBC 22 H (0-5) /hpf Ur Squamous Epith Cells 18 H (0-4) /hpf Urine Bacteria Rare H (None) /hpf Urine Mucus Rare H (None) /hpf Disposition Clinical Impression: Abdominal pain Disposition: HOME SELF-CARE Condition: Stable Instructions (If sedation given, give patient instructions): Diverticulitis Diet (ED), Abdominal Pain (ED) Additional Instructions: Take prescribed medication as directed. Drink plenty of fluids. Follow with diverticulitis specific diet. Follow-up with . Return to emergency department if symptoms worsen. Prescriptions: Amoxicillin/Potassium Clav [Augmentin 875-125 Tablet] 1 tab PO Q12HR #20 tab Is patient prescribed a controlled substance at d/c from ED?: No Referrals: Suzy Yuan MD [Primary Care Provider] - 1-2 days Suad Tsang MD [STAFF PHYSICIAN] - 1-2 days Time of Disposition: 18:08
[2020-04-21 17:13] LABS: Basophils # (A) 0.1 k/uL (0-0.2); Basophils % (A) 1 %; Eosinophils # (A) 0.2 k/uL (0-0.7); Eosinophils % (A) 2 %; HCT 42.5 % (34.0-46.0); HGB 13.9 gm/dL (11.4-16.0); Lymphocytes # (A) 1.8 k/uL (1.0-4.8); Lymphocytes % (A) 16 %; MCH 31.4 pg (25.0-35.0); MCHC 32.7 g/dL (31.0-37.0); MCV 96.1 fL (80.0-100.0); Mean Platelet Volume 7.1; Monocytes # (A) 0.5 k/uL (0-1.0); Monocytes % (A) 5 %; Neutrophils # (A) 8.4 k/uL (1.3-7.7); Neutrophils % (A) 75 %; Platelet Count 264 k/uL (150-450); RBC 4.43 m/uL (3.80-5.40); RDW 12.3 % (11.5-15.5); WBC 11.1 k/uL (3.8-10.6)
[2020-04-21 17:16] LABS: Appearance,Urine Cloudy (Clear); Bacteria,Urine Rare /hpf; Bilirubin,Urine Negative (Negative); Blood,Urine Trace (Negative); Color,Urine Yellow; Glucose,Urine (UA) 4+ (Negative); Ketones,Urine Negative (Negative); Leukocyte Esterase,Urine Large (Negative); Mucus,Urine Rare /hpf; Nitrite,Urine Negative (Negative); PH, Urine 5.5 (5.0-8.0); Protein,Urine Negative (Negative); RBC,Urine 31 /hpf (0-5); Squamous Epithelial Cell,Urine 18 /hpf (0-4); Urobilinogen,Urine <2.0 mg/dL (<2.0); WBC,Urine 22 /hpf (0-5)
[2020-04-21 17:33] LABS: ALT 15 U/L (4-34); AST 26 U/L (14-36); African American GFR (CKD) >90 (>60 ml/min/1.73 sqM); Albumin 4.2 g/dL (3.5-5.0); Alkaline Phosphatase 71 U/L (38-126); Anion Gap 9 mmol/L; Blood Urea Nitrogen 21 mg/dL (7-17); Calcium 9.3 mg/dL (8.4-10.2); Carbon Dioxide 25 mmol/L (22-30); Chloride 103 mmol/L (98-107); Glucose 112 mg/dL (74-99); Non-African American GFR(CKD) >90 (>60 ml/min/1.73 sqM); Sodium 137 mmol/L (137-145); Total Bilirubin 0.3 mg/dL (0.2-1.3)
[2020-04-21] MEDS ORDERED: ACET/COD 300 MG/30 MG STARTER PACK 6 TAB BTL PO STA (18:07)
[2020-04-21] MEDS ORDERED: AMOXIC-POT CLAV 875-125MG 1 EACH TAB PO STA (18:07)
== END 2020-04-21 18:23 | disposition home or self-care (01) ==
LOC: EC 16:27
DX: R10.32 Left lower quadrant pain (principal); D72.829 Elevated white blood cell count, unspecified; K57.92 Diverticulitis of intestine, part unspecified, without perforation or abscess without bleeding; E11.9 Type 2 diabetes mellitus without complications; F32.9 Major depressive disorder, single episode, unspecified; F17.200 Nicotine dependence, unspecified, uncomplicated; Z79.84 Long term (current) use of oral hypoglycemic drugs; Z79.899 Other long term (current) drug therapy; Z88.0 Allergy status to penicillin
CPT/HCPCS: 36415; 80053; 83690; 85025; 81001; 87086; 99284; 96374; 96375; 96361; J2405; J1170

== ENCOUNTER 2020-05-01 07:19 | Day surgery (SDC) | payer OTHER ==
[2020-04-30 10:56] VITALS: BMI 42.3
[~2020-05-01 07:19] MED LIST changes: -DEXAMETHASONE SOD PHOSPHATE 10 MG/ML 1 ML VIAL IV ONE; -LIDOCAINE 1% 20 ML VIAL (10MG/ML) FOR IV START INTRADERMA PRN; -MIDAZOLAM 2 MG/2 ML VIAL IV PRN; -ONDANSETRON 4 MG/2 ML VIAL IVP ONE; -SCOPOLAMINE 1.5MG/72HR PATCH TRANSDERM ONE
[2020-05-01] MEDS ORDERED: LIDOCAINE 1% (10MG/ML) FOR IV START INTRADERMA ONE (08:02)
[2020-05-01 08:03] LABS: Glucose,Whole Blood 124 mg/dL (75-99)
[2020-05-01 08:04] VITALS: TEMP 97.2
[2020-05-01] MEDS ORDERED: PROPOFOL 10 MG/ML 20 ML VIAL IV ONE (08:18)
[2020-05-01] MEDS ORDERED: KETAMINE 10 MG/ML 20 ML VIAL ONE (08:18)
[2020-05-01] MEDS ORDERED: LIDOCAINE 1% INJ 10MG/ML (20 ML MDV) ONE (08:18)
--- NOTE | 2020-05-01 08:44 | P.PCN ---
Date of Procedure: 05/01/20 Description of Procedure: BRIEF HISTORY: Patient is a 34-year-old female presenting for outpatient colonoscopy for evaluation of left lower quadrant abdominal pain. Patient reports pain in left lower quadrant, previously she was also having some loose bowel movements. She is a medical history significant for diabetes mellitus. No prior colonoscopy. PROCEDURE PERFORMED: Colonoscopy with biopsy. PREOPERATIVE DIAGNOSIS: Left lower quadrant abdominal pain, abdominal pain, change in bowel habits, no prior colonoscopy. ESTIMATED BLOOD LOSS: Minimal. IV sedation per Anesthesia. PROCEDURE: After informed consent was obtained, the patient, was brought into the endoscopy unit. IV sedation was administered by Anesthesia under continuous monitoring. Digital rectal examination was normal. Initially the Olympus CF-190 flexible video colonoscope was then inserted in the rectum, gradually advanced into the cecum without any difficulty. Careful examination was performed as the scope was gradually being withdrawn. Ileocecal valve and the appendiceal orifice were visualized and appeared normal. Prep was excellent. Mucosa of the cecum, ascending colon, transverse colon, descending colon, sigmoid colon, and rectum appeared normal, with biopsies taken of the right and left colon given her report of previous change in bowel habits. A few scattered diverticula noted in the sigmoid colon. Retroflexion was performed in the rectum and no lesions were seen, low-grade internal hemorrhoids. The patient tolerated the procedure well. IMPRESSION: Mild sigmoid diverticulosis. Otherwise normal-appearing colon from rectum to cecum with random biopsies taken of the right and left colon. RECOMMENDATIONS: Findings of this examination were discussed with the patient. Okay to resume diet. Okay to resume medication. Await pathology from biopsies. Follow-up in GI clinic as previously scheduled.
[2020-05-01 08:49] VITALS: RESP 16
[2020-05-01 08:53] VITALS: BP 114/64; PULSE 80
[2020-05-01 08:54] LABS: Glucose,Whole Blood 124 mg/dL (75-99)
== END 2020-05-01 09:12 | disposition home or self-care (01) ==
LOC: ORWHC2ENDO 07:19
PROVIDERS: ATTEND Internal Medicine
DX: K57.30 Diverticulosis of large intestine without perforation or abscess without bleeding (principal); K64.8 Other hemorrhoids; E11.9 Type 2 diabetes mellitus without complications; E78.5 Hyperlipidemia, unspecified; F32.9 Major depressive disorder, single episode, unspecified; K21.9 Gastro-esophageal reflux disease without esophagitis; Z88.1 Allergy status to other antibiotic agents; Z79.84 Long term (current) use of oral hypoglycemic drugs; Z79.899 Other long term (current) drug therapy; Z98.51 Tubal ligation status; Z98.890 Other specified postprocedural states
CPT/HCPCS: 81025; 88305; 45380; J2001; J2704

== ENCOUNTER 2020-07-08 18:33 | Emergency (ER) | payer OTHER ==
[2020-07-08 18:38] VITALS: RESP 18
[2020-07-08] MEDS ORDERED: KETOROLAC 15 MG/ML 1 ML VIAL IVP STA (18:58)
[2020-07-08] MEDS ORDERED: HYDROmorphone 0.5 MG/0.5 ML SYRINGE IVP STA (18:58)
[2020-07-08] MEDS ORDERED: ONDANSETRON 4 MG/2 ML VIAL IVP STA (18:58)
[2020-07-08] MEDS ORDERED: SODIUM CHLORIDE 0.9% 1,000 ML IV STA (18:58)
--- NOTE | 2020-07-08 19:10 | ED ---
Abdominal Pain HPI - General Chief Complaint: Abdominal Pain Stated Complaint: Diverticulitis Time Seen by Provider: 07/08/20 18:39 Source: patient Mode of arrival: ambulatory Limitations: no limitations - History of Present Illness Initial Comments: 34-year-old female patient presents to the emergency department today for evaluation of lower abdominal pain. Patient states that the pain started this morning as a persistent throughout the day. She states the pain does radiate to the lower back. She denies any fever or chills. States she did have a couple episodes of diarrhea, no hematochezia or melena. Patient states she has had symptoms similar in the past and was diagnosed with diverticulitis. States was last treated a couple of months ago with Augmentin. She denies any vomiting today but states she has had some nausea. She denies any abnormal vaginal bleeding or discharge. Denies any hematuria, dysuria, urinary frequency, urinary urgency. States she has had tubal ligation as and concern for . Denies concern for sexually transmitted infections. - Related Data Home Medications Medication Instructions Recorded Confirmed Pioglitazone [Actos] 45 mg PO QA 08/25/17 05/01/20 Sertraline [Zoloft] 100 mg PO HS 08/25/17 05/01/20 metFORMIN HCL 1,000 mg PO BID 08/25/17 05/01/20 Dulaglutide [Trulicity] 0.75 mg SQ TH 07/03/18 05/01/20 Dapagliflozin Propanediol [Farxiga] 10 mg PO HS 07/31/19 05/01/20 Atorvastatin [Lipitor] 40 mg PO HS 04/30/20 05/01/20 Sertraline [Zoloft] 50 mg PO DAILY 04/30/20 05/01/20 Allergies Allergy/AdvReac Type Severity Reaction Status Date / Time amoxicillin Allergy Rash/Hives Verified 07/08/20 18:38 Review of Systems ROS Statement: Those systems with pertinent positive or pertinent negative responses have been documented in the HPI. ROS Other: All systems not noted in ROS Statement are negative. Past Medical History Past Medical History: Diabetes Mellitus, GERD/Reflux, Hyperlipidemia History of Any Multi-Drug Resistant Organisms: None Reported Past Surgical History: Orthopedic Surgery, Tubal Ligation, Uterine Ablation Additional Past Surgical History / Comment(s): L knee-ARTHROSCOPIC Past Anesthesia/Blood Transfusion Reactions: No Reported Reaction Past Psychological History: Depression Smoking Status: Former smoker, Vaper Past Alcohol Use History: None Reported Past Drug Use History: None Reported - Past Family History Mother Family Medical History: No Reported History General Exam Limitations: no limitations General appearance: alert, in no apparent distress, other (This is a well- developed, well-nourished adult female patient in no acute distress. Vital signs upon presentation are temperature 97.8F, pulse 77, respirations 18, pulse ox 100% on room air.) Eye exam: Present: normal appearance, PERRL, EOMI. Absent: scleral icterus, conjunctival injection, periorbital swelling ENT exam: Present: normal exam, normal oropharynx, mucous membranes moist Respiratory exam: Present: normal lung sounds bilaterally. Absent: respiratory distress, wheezes, rales, rhonchi, stridor Cardiovascular Exam: Present: regular rate, normal rhythm, normal heart sounds. Absent: systolic murmur, diastolic murmur, rubs, gallop, clicks GI/Abdominal exam: Present: soft, tenderness (Right lower quadrant tenderness), normal bowel sounds. Absent: distended, guarding, rebound, rigid Neurological exam: Present: alert, oriented X3, CN II-XII intact Psychiatric exam: Present: normal affect, normal mood Skin exam: Present: warm, dry, intact, normal color. Absent: rash Course Vital Signs 07/08/20 07/08/20 07/08/20 18:34 19:14 21:24 Temperature 97.8 F 97.9 F Pulse Rate 77 79 80 Respiratory 18 18 18 Rate Blood Pressure 121/70 116/72 O2 Sat by Pulse 100 98 100 Oximetry Medical Decision Making - Medical Decision Making 34-year-old female patient percents into the emergency department today for evaluation of lower abdominal pain worse over the right side. Physical examination did reveal lower abdominal tenderness worse over the right lower quadrant. She is afebrile, vital signs. Labs are unremarkable. CT abdomen and pelvis was obtained rule out appendicitis and showed no acute abnormalities. I did discuss findings and results with the patient. She'll be discharged. The primary care physician for recheck in 1-2 days. She is instructed to follow-up with her semiconductor wafer inspector and GI specialist as well for further evaluation of this continued pain. Return parameters were discussed in detail. She verbalizes understanding and agrees with this plan. - Lab Data Result diagrams: 07/08/20 19:17 07/08/20 19:17 Lab Results 07/08/20 07/08/20 07/08/20 Range/Units 19:17 19:17 19:17 WBC 9.8 (3.8-10.6) k/uL RBC 4.12 (3.80-5.40) m/uL Hgb 13.7 (11.4-16.0) gm/dL Hct 39.4 (34.0-46.0) % MCV 95.7 (80.0-100.0) fL MCH 33.2 (25.0-35.0) pg MCHC 34.7 (31.0-37.0) g/dL RDW 11.7 (11.5-15.5) % Plt Count 252 (150-450) k/uL MPV 7.5 Neutrophils % 69 % Lymphocytes % 21 % Monocytes % 5 % Eosinophils % 2 % Basophils % 1 % Neutrophils # 6.8 (1.3-7.7) k/uL Lymphocytes # 2.1 (1.0-4.8) k/uL Monocytes # 0.5 (0-1.0) k/uL Eosinophils # 0.2 (0-0.7) k/uL Basophils # 0.1 (0-0.2) k/uL Sodium 137 (137-145) mmol/L Potassium 4.0 (3.5-5.1) mmol/L Chloride 105 (98-107) mmol/L Carbon Dioxide 25 (22-30) mmol/L Anion Gap 7 mmol/L BUN 16 (7-17) mg/dL Creatinine 0.51 L (0.52-1.04) mg/dL Est GFR (CKD-EPI)AfAm >90 (>60 ml/min/1.73 sqM) Est GFR (CKD-EPI)NonAf >90 (>60 ml/min/1.73 sqM) Glucose 234 H (74-99) mg/dL Plasma Lactic Acid Arnaud (0.7-2.0) mmol/L Calcium 9.0 (8.4-10.2) mg/dL Total Bilirubin 0.4 (0.2-1.3) mg/dL AST 21 (14-36) U/L ALT 23 (4-34) U/L Alkaline Phosphatase 89 (38-126) U/L Total Protein 7.0 (6.3-8.2) g/dL Albumin 4.0 (3.5-5.0) g/dL Lipase 70 (23-300) U/L Urine Color Light Yellow Urine Appearance Clear (Clear) Urine pH 5.0 (5.0-8.0) Ur Specific [place] 1.010 (1.001-1.035) Urine Protein Negative (Negative) Urine Glucose (UA) 3+ H (Negative) Urine Ketones Negative (Negative) Urine Blood Negative (Negative) Urine Nitrite Negative (Negative) Urine Bilirubin Negative (Negative) Urine Urobilinogen <2.0 (<2.0) mg/dL Ur Leukocyte Esterase Trace H (Negative) Urine RBC <1 (0-5) /hpf Urine WBC 2 (0-5) /hpf Ur Squamous Epith Cells 1 (0-4) /hpf 07/08/20 Range/Units 19:17 WBC (3.8-10.6) k/uL RBC (3.80-5.40) m/uL Hgb (11.4-16.0) gm/dL Hct (34.0-46.0) % MCV (80.0-100.0) fL MCH (25.0-35.0) pg MCHC (31.0-37.0) g/dL RDW (11.5-15.5) % Plt Count (150-450) k/uL MPV Neutrophils % % Lymphocytes % % Monocytes % % Eosinophils % % Basophils % % Neutrophils # (1.3-7.7) k/uL Lymphocytes # (1.0-4.8) k/uL Monocytes # (0-1.0) k/uL Eosinophils # (0-0.7) k/uL Basophils # (0-0.2) k/uL Sodium (137-145) mmol/L Potassium (3.5-5.1) mmol/L Chloride (98-107) mmol/L Carbon Dioxide (22-30) mmol/L Anion Gap mmol/L BUN (7-17) mg/dL Creatinine (0.52-1.04) mg/dL Est GFR (CKD-EPI)AfAm (>60 ml/min/1.73 sqM) Est GFR (CKD-EPI)NonAf (>60 ml/min/1.73 sqM) Glucose (74-99) mg/dL Plasma Lactic Acid Arnaud 2.0 (0.7-2.0) mmol/L Calcium (8.4-10.2) mg/dL Total Bilirubin (0.2-1.3) mg/dL AST (14-36) U/L ALT (4-34) U/L Alkaline Phosphatase (38-126) U/L Total Protein (6.3-8.2) g/dL Albumin (3.5-5.0) g/dL Lipase (23-300) U/L Urine Color Urine Appearance (Clear) Urine pH (5.0-8.0) Ur Specific [place] (1.001-1.035) Urine Protein (Negative) Urine Glucose (UA) (Negative) Urine Ketones (Negative) Urine Blood (Negative) Urine Nitrite (Negative) Urine Bilirubin (Negative) Urine Urobilinogen (<2.0) mg/dL Ur Leukocyte Esterase (Negative) Urine RBC (0-5) /hpf Urine WBC (0-5) /hpf Ur Squamous Epith Cells (0-4) /hpf - Radiology Data Radiology results: report reviewed, image reviewed CT abdomen and pelvis with contrast was obtained. Report was reviewed in its entirety. Impression by Dr. Blanco shows negative computed tomography scan of the abdomen and pelvis. Normal appendix. There are few sigmoid diverticula. No adverse change compared to old exam. Disposition Clinical Impression: Abdominal pain Disposition: HOME SELF-CARE Condition: Good Instructions (If sedation given, give patient instructions): Abdominal Pain (ED) Additional Instructions: Take pain medication as needed for discomfort. Follow up through primary care physician for recheck in 1-2 days. Follow-up with her semiconductor wafer inspector for further evaluation. Helps her GI specialist for further evaluation. Return to the emergency department immediately for any new, worsening, or concerning symptoms. Is patient prescribed a controlled substance at d/c from ED?: No Referrals: Suzy Yuan MD [Primary Care Provider] - 1-2 days Time of Disposition: 20:44
[2020-07-08 19:32] LABS: Basophils # (A) 0.1 k/uL (0-0.2); Basophils % (A) 1 %; Eosinophils # (A) 0.2 k/uL (0-0.7); Eosinophils % (A) 2 %; HCT 39.4 % (34.0-46.0); HGB 13.7 gm/dL (11.4-16.0); Lymphocytes # (A) 2.1 k/uL (1.0-4.8); Lymphocytes % (A) 21 %; MCH 33.2 pg (25.0-35.0); MCHC 34.7 g/dL (31.0-37.0); MCV 95.7 fL (80.0-100.0); Mean Platelet Volume 7.5; Monocytes # (A) 0.5 k/uL (0-1.0); Monocytes % (A) 5 %; Neutrophils # (A) 6.8 k/uL (1.3-7.7); Neutrophils % (A) 69 %; Platelet Count 252 k/uL (150-450); RBC 4.12 m/uL (3.80-5.40); RDW 11.7 % (11.5-15.5); WBC 9.8 k/uL (3.8-10.6)
[2020-07-08 19:41] LABS: Appearance,Urine Clear (Clear); Bilirubin,Urine Negative (Negative); Blood,Urine Negative (Negative); Color,Urine Light Yellow; Glucose,Urine (UA) 3+ (Negative); Ketones,Urine Negative (Negative); Leukocyte Esterase,Urine Trace (Negative); Nitrite,Urine Negative (Negative); Protein,Urine Negative (Negative); RBC,Urine <1 /hpf (0-5); Squamous Epithelial Cell,Urine 1 /hpf (0-4); Urobilinogen,Urine <2.0 mg/dL (<2.0); WBC,Urine 2 /hpf (0-5)
[2020-07-08 19:43] LABS: ALT 23 U/L (4-34); AST 21 U/L (14-36); African American GFR (CKD) >90 (>60 ml/min/1.73 sqM); Alkaline Phosphatase 89 U/L (38-126); Anion Gap 7 mmol/L; Blood Urea Nitrogen 16 mg/dL (7-17); Carbon Dioxide 25 mmol/L (22-30); Chloride 105 mmol/L (98-107); Glucose 234 mg/dL (74-99); Lipase 70 U/L (23-300); Non-African American GFR(CKD) >90 (>60 ml/min/1.73 sqM); Sodium 137 mmol/L (137-145); Total Bilirubin 0.4 mg/dL (0.2-1.3)
--- NOTE | 2020-07-08 20:37 | CT ---
EXAMINATION TYPE: CT abdomen pelvis w con DATE OF EXAM: 07/08/2020 COMPARISON: 12/12/2019 HISTORY: RLQ pain CT DLP: 2104.5 mGycm Automated exposure control for dose reduction was used. CONTRAST: Performed with IV Contrast, patient injected with 100 mL of Isovue 300. Lung bases are clear. There is no pleural effusion. Heart size is normal. There is no pericardial eff usion. Liver spleen stomach pancreas appear intact. Bile ducts are not dilated. There is possible small gall stones. There is no adrenal mass. Kidneys show satisfactory contrast opacification. There is no hydronephrosi s. Delayed images show normal renal excretion. Ureters are not dilated. There is no retroperitoneal adenopathy. Bladder distends smoothly. Uterus is anteverted. There is no evidence of a pelvic mass. There is no free fluid in the pelvis. Appendix is posterior and appears normal. There is no mesenteric edema. There is no ascites or free air. There i s no bowel obstruction. There are a few small sigmoid diverticula. There is no evidence of diverticul itis. Lumbar vertebra have normal spacing and alignment. Posterior elements are intact. There is no concepción jihan fracture. The bony pelvis is intact. Hip joints appear normal. IMPRESSION: Negative CT scan of the abdomen and pelvis. Normal appendix. There are a few sigmoid diverticula. No adverse change compared to old exam.
[2020-07-08] MEDS ORDERED: ACET/COD 300 MG/30 MG STARTER PACK 6 TAB BTL PO STA (20:44)
[2020-07-08 21:26] VITALS: BP 116/72; PULSE 80; TEMP 97.9
== END 2020-07-08 21:24 | disposition home or self-care (01) ==
LOC: EC 18:33
DX: R10.31 Right lower quadrant pain (principal); E11.9 Type 2 diabetes mellitus without complications; E78.5 Hyperlipidemia, unspecified; F32.9 Major depressive disorder, single episode, unspecified; Z79.84 Long term (current) use of oral hypoglycemic drugs; Z79.899 Other long term (current) drug therapy; Z88.0 Allergy status to penicillin; Z87.891 Personal history of nicotine dependence
CPT/HCPCS: 36415; 80053; 83605; 83690; 85025; 81001; 74177; 99284; 96374; 96375 ×2; J2405; J1885; J1170; Q9967

== ENCOUNTER 2020-09-28 19:27 | Emergency (ER) | payer OTHER ==
[2020-09-28 20:01] VITALS: BP 117/64; PULSE 73; RESP 18; TEMP 98.3
[2020-09-28] MEDS ORDERED: HYDROmorphone 0.5 MG/0.5 ML SYRINGE IVP STA (20:35)
[2020-09-28] MEDS ORDERED: SODIUM CHLORIDE 0.9% 1,000 ML IV STA (20:35)
[2020-09-28 20:49] LABS: Basophils # (A) 0.1 k/uL (0-0.2); Basophils % (A) 1 %; Eosinophils # (A) 0.2 k/uL (0-0.7); Eosinophils % (A) 2 %; HCT 41.9 % (34.0-46.0); HGB 13.7 gm/dL (11.4-16.0); Lymphocytes # (A) 2.2 k/uL (1.0-4.8); Lymphocytes % (A) 25 %; MCH 31.5 pg (25.0-35.0); MCHC 32.8 g/dL (31.0-37.0); MCV 96.2 fL (80.0-100.0); Monocytes # (A) 0.4 k/uL (0-1.0); Monocytes % (A) 4 %; Neutrophils # (A) 5.8 k/uL (1.3-7.7); Neutrophils % (A) 66 %; Platelet Count 268 k/uL (150-450); RBC 4.36 m/uL (3.80-5.40); RDW 12.6 % (11.5-15.5); WBC 8.8 k/uL (3.8-10.6)
[2020-09-28 20:54] LABS: Appearance,Urine Clear (Clear); Bacteria,Urine Rare /hpf; Bilirubin,Urine Negative (Negative); Blood,Urine Negative (Negative); Color,Urine Light Yellow; Glucose,Urine (UA) 3+ (Negative); Ketones,Urine Negative (Negative); Leukocyte Esterase,Urine Trace (Negative); Mucus,Urine Rare /hpf; Nitrite,Urine Negative (Negative); Protein,Urine Negative (Negative); Squamous Epithelial Cell,Urine 7 /hpf (0-4); Urobilinogen,Urine <2.0 mg/dL (<2.0); WBC,Urine 4 /hpf (0-5)
[2020-09-28 21:06] LABS: ALT 27 U/L (4-34); AST 35 U/L (14-36); African American GFR (CKD) >90 (>60 ml/min/1.73 sqM); Albumin 4.4 g/dL (3.5-5.0); Alkaline Phosphatase 64 U/L (38-126); Amylase 40 U/L (30-110); Anion Gap 10 mmol/L; Blood Urea Nitrogen 16 mg/dL (7-17); Calcium 8.9 mg/dL (8.4-10.2); Carbon Dioxide 23 mmol/L (22-30); Chloride 100 mmol/L (98-107); Glucose 224 mg/dL (74-99); Lipase 64 U/L (23-300); Non-African American GFR(CKD) >90 (>60 ml/min/1.73 sqM); Sodium 133 mmol/L (137-145); Total Bilirubin 0.6 mg/dL (0.2-1.3); Total Protein 7.5 g/dL (6.3-8.2)
--- NOTE | 2020-09-28 21:14 | ED ---
General Adult HPI - General Source: patient Mode of arrival: ambulatory Limitations: no limitations <Fernando Florentino - Last Filed: 09/28/20 22:25> <Angelica Hart - Last Filed: 09/29/20 15:06> - General Chief complaint: Abdominal Pain Stated complaint: abd pain Time Seen by Provider: 09/28/20 20:03 - History of Present Illness Initial comments: 34-year-old female with a past medical history of diabetes, GERD, hy perlipidemia, tubal ligation presents to the emergency room for a chief complaint of abdominal pain. Patient reports it has been ongoing for the past 2 days. She states it is in her lower abdomen and feels like her past history of diverticulitis. Patient states that she has not had any fevers. Denies nausea vomiting or diarrhea. States last bowel movement was yesterday.Patient has no other complaints at this time including shortness of breath, chest pain, nausea or vomiting, headache, or visual changes. (Fernando Florentino) - Related Data Home Medications Medication Instructions Recorded Confirmed Pioglitazone [Actos] 45 mg PO QAM 08/25/17 05/01/20 Sertraline [Zoloft] 100 mg PO HS 08/25/17 05/01/20 metFORMIN HCL 1,000 mg PO BID 08/25/17 05/01/20 Dulaglutide [Trulicity] 0.75 mg SQ TH 07/03/18 05/01/20 Dapagliflozin Propanediol [Farxiga] 10 mg PO HS 07/31/19 05/01/20 Atorvastatin [Lipitor] 40 mg PO HS 04/30/20 05/01/20 Sertraline [Zoloft] 50 mg PO DAILY 04/30/20 05/01/20 Allergies Allergy/AdvReac Type Severity Reaction Status Date / Time amoxicillin Allergy Rash/Hives Verified 09/28/20 20:01 Review of Systems ROS Other: All systems not noted in ROS Statement are negative. <Fernando Florentino - Last Filed: 09/28/20 22:25> ROS Other: All systems not noted in ROS Statement are negative. <Angelica Hart - Last Filed: 09/29/20 15:06> ROS Statement: Those systems with pertinent positive or pertinent negative responses have been documented in the HPI. Past Medical History Past Medical History: Diabetes Mellitus, GERD/Reflux, Hyperlipidemia History of Any Multi-Drug Resistant Organisms: None Reported Past Surgical History: Orthopedic Surgery, Tubal Ligation, Uterine Ablation Additional Past Surgical History / Comment(s): L knee-ARTHROSCOPIC Past Anesthesia/Blood Transfusion Reactions: No Reported Reaction Past Psychological History: Anxiety, Depression Smoking Status: Former smoker, Vaper Past Alcohol Use History: Rare Past Drug Use History: None Reported - Past Family History Mother Family Medical History: No Reported History <Fernando Florentino - Last Filed: 09/28/20 22:25> General Exam Limitations: no limitations General appearance: alert, in no apparent distress Head exam: Present: atraumatic Eye exam: Present: normal appearance, PERRL, EOMI. Absent: scleral icterus ENT exam: Present: normal exam, mucous membranes moist Neck exam: Present: normal inspection, full ROM. Absent: tenderness Respiratory exam: Present: normal lung sounds bilaterally. Absent: respiratory distress, wheezes Cardiovascular Exam: Present: regular rate, normal rhythm, normal heart sounds GI/Abdominal exam: Present: soft, tenderness (generalized lower abdominal tenderness), normal bowel sounds. Absent: distended, guarding, rebound, rigid Neurological exam: Present: alert <Fernando Florentino P - Last Filed: 09/28/20 22:25> Course Vital Signs 09/28/20 19:59 Temperature 98.3 F Pulse Rate 73 Respiratory 18 Rate Blood Pressure 117/64 O2 Sat by Pulse 97 Oximetry Medical Decision Making - Lab Data Result diagrams: 09/28/20 20:43 09/28/20 20:43 <Fernando Florentino - Last Filed: 09/28/20 22:25> - Lab Data Result diagrams: 09/28/20 20:43 09/28/20 20:43 <Angelica Hart - Last Filed: 09/29/20 15:06> - Medical Decision Making Vitals are stable. Patient presents for abdominal pain. Patient reports a history of IBS. This is patient's sixth visit for abdominal pain within the past 12 months. Patient states this feels like her diverticulitis flares. CBC shows a normal white blood cell count of 8.8. CMP unremarkable. There is hyperglycemia, patient does have a history of diabetes. Urinalysis does not show any obvious evidence of infection. CT abdomen and pelvis showed no acute abnormality. No pelvic adenopathy or abnormality the reproductive organs. No significant abnormality of the bowel. Patient was given pain medication and had significant improvement in pain. She is requesting food to eat. Patient reports his pain has been on and off for the past year. She has a history of IBS. Patient did have a colonoscopy in April that revealed diverticuli, no other Issues. She is on Bentyl by her GI doctor. I did discuss that it would benefit her to follow back up with her GI doctor as she is having continued problems. She will return here for any worsening symptoms. (Fernando Florentino) I was available for consultation in the emergency department. The history and physical exam were done by the midlevel provider. I was consulted for this patients care. I reviewed the case with the midlevel provider and based on their presentation of the patient, I agree with the assessment, medical decision making and plan of care as documented. Chart was dictated using [employer] dictation software. Attempts were made to correct any dictation errors however some typographical errors may persist. Patient was seen during a national state of emergency due to the Covid-19 pandemic. (Angelcia Hart) - Lab Data Lab Results 09/28/20 09/28/20 09/28/20 Range/Units 20:43 20:43 20:43 WBC 8.8 (3.8-10.6) k/uL RBC 4.36 (3.80-5.40) m/uL Hgb 13.7 (11.4-16.0) gm/dL Hct 41.9 (34.0-46.0) % MCV 96.2 (80.0-100.0) fL MCH 31.5 (25.0-35.0) pg MCHC 32.8 (31.0-37.0) g/dL RDW 12.6 (11.5-15.5) % Plt Count 268 (150-450) k/uL MPV 8.0 Neutrophils % 66 % Lymphocytes % 25 % Monocytes % 4 % Eosinophils % 2 % Basophils % 1 % Neutrophils # 5.8 (1.3-7.7) k/uL Lymphocytes # 2.2 (1.0-4.8) k/uL Monocytes # 0.4 (0-1.0) k/uL Eosinophils # 0.2 (0-0.7) k/uL Basophils # 0.1 (0-0.2) k/uL Sodium (137-145) mmol/L Potassium (3.5-5.1) mmol/L Chloride (98-107) mmol/L Carbon Dioxide (22-30) mmol/L Anion Gap mmol/L BUN (7-17) mg/dL Creatinine (0.52-1.04) mg/dL Est GFR (CKD-EPI)AfAm (>60 ml/min/1.73 sqM) Est GFR (CKD-EPI)NonAf (>60 ml/min/1.73 sqM) Glucose (74-99) mg/dL Calcium (8.4-10.2) mg/dL Total Bilirubin (0.2-1.3) mg/dL AST (14-36) U/L ALT (4-34) U/L Alkaline Phosphatase (38-126) U/L Total Protein (6.3-8.2) g/dL Albumin (3.5-5.0) g/dL Amylase (30-110) U/L Lipase (23-300) U/L Urine Color Light Yellow Urine Appearance Clear (Clear) Urine pH 5.0 (5.0-8.0) Ur Specific [place] 1.010 (1.001-1.035) Urine Protein Negative (Negative) Urine Glucose (UA) 3+ H (Negative) Urine Ketones Negative (Negative) Urine Blood Negative (Negative) Urine Nitrite Negative (Negative) Urine Bilirubin Negative (Negative) Urine Urobilinogen <2.0 (<2.0) mg/dL Ur Leukocyte Esterase Trace H (Negative) Urine WBC 4 (0-5) /hpf Ur Squamous Epith Cells 7 H (0-4) /hpf Urine Bacteria Rare H (None) /hpf Urine Mucus Rare H (None) /hpf Urine HCG, Qual Not Detected (Not Detectd) Trichomonas Ag (Rapid) (Negative) 09/28/20 09/28/20 Range/Units 20:43 22:40 WBC (3.8-10.6) k/uL RBC (3.80-5.40) m/uL Hgb (11.4-16.0) gm/dL Hct (34.0-46.0) % MCV (80.0-100.0) fL MCH (25.0-35.0) pg MCHC (31.0-37.0) g/dL RDW (11.5-15.5) % Plt Count (150-450) k/uL MPV Neutrophils % % Lymphocytes % % Monocytes % % Eosinophils % % Basophils % % Neutrophils # (1.3-7.7) k/uL Lymphocytes # (1.0-4.8) k/uL Monocytes # (0-1.0) k/uL Eosinophils # (0-0.7) k/uL Basophils # (0-0.2) k/uL Sodium 133 L (137-145) mmol/L Potassium 4.8 (3.5-5.1) mmol/L Chloride 100 (98-107) mmol/L Carbon Dioxide 23 (22-30) mmol/L Anion Gap 10 mmol/L BUN 16 (7-17) mg/dL Creatinine 0.44 L (0.52-1.04) mg/dL Est GFR (CKD-EPI)AfAm >90 (>60 ml/min/1.73 sqM) Est GFR (CKD-EPI)NonAf >90 (>60 ml/min/1.73 sqM) Glucose 224 H (74-99) mg/dL Calcium 8.9 (8.4-10.2) mg/dL Total Bilirubin 0.6 (0.2-1.3) mg/dL AST 35 (14-36) U/L ALT 27 (4-34) U/L Alkaline Phosphatase 64 (38-126) U/L Total Protein 7.5 (6.3-8.2) g/dL Albumin 4.4 (3.5-5.0) g/dL Amylase 40 (30-110) U/L Lipase 64 (23-300) U/L Urine Color Urine Appearance (Clear) Urine pH (5.0-8.0) Ur Specific [place] (1.001-1.035) Urine Protein (Negative) Urine Glucose (UA) (Negative) Urine Ketones (Negative) Urine Blood (Negative) Urine Nitrite (Negative) Urine Bilirubin (Negative) Urine Urobilinogen (<2.0) mg/dL Ur Leukocyte Esterase (Negative) Urine WBC (0-5) /hpf Ur Squamous Epith Cells (0-4) /hpf Urine Bacteria (None) /hpf Urine Mucus (None) /hpf Urine HCG, Qual (Not Detectd) Trichomonas Ag (Rapid) Negative (Negative) Disposition Is patient prescribed a controlled substance at d/c from ED?: No Time of Disposition: 22:27 <Fernando Florentino - Last Filed: 09/28/20 22:25> <Angelica Hart - Last Filed: 09/29/20 15:06> Clinical Impression: Abdominal pain Disposition: HOME SELF-CARE Condition: Good Instructions (If sedation given, give patient instructions): Abdominal Pain (ED) Additional Instructions: Please continue to take Bentyl for pain. Please follow-up with your doctor in one to 2 days. Follow up with GI as well. If you have worsening symptoms or fevers return to the emergency room. Referrals: Suzy Yuan MD [Primary Care Provider] - 1-2 days Suad Tsang MD [STAFF PHYSICIAN] - 1-2 days
[2020-09-28 21:17] LABS: Potassium 4.8 mmol/L (3.5-5.1)
--- NOTE | 2020-09-28 21:40 | CT ---
EXAMINATION TYPE: CT abdomen pelvis w con DATE OF EXAM: 09/28/2020 COMPARISON: 07/08/2020. HISTORY: Lower abdominal pain x2 days. CT DLP: 2166.2 mGycm Automated exposure control for dose reduction was used. TECHNIQUE: Helical acquisition of images was performed from the lung bases through the pelvis. CONTRAST: Performed without Oral Contrast and with IV Contrast, patient injected with 100ml mL of Isovue 300. FINDINGS: LUNG BASES: No significant abnormality is appreciated. LIVER/GB: No significant abnormality is appreciated. PANCREAS: No significant abnormality is seen. SPLEEN: No significant abnormality is seen. ADRENALS: No significant abnormality is seen. KIDNEYS: No significant abnormality is seen. FREE AIR: No free air is visualized. RETROPERITONEAL ADENOPATHY: None visualized REPRODUCTIVE ORGANS: No significant abnormality is seen URINARY BLADDER: No significant abnormality is seen. PELVIC ADENOPATHY: None visualized. OSSEOUS STRUCTURES: No significant abnormality is seen. BOWEL: No significant abnormality is seen. OTHER: None. IMPRESSION: NO ACUTE ABNORMALITY.
[2020-09-30 13:34] LABS: C. trachomatis,PCR Negative (Neg,Equiv); Chlamydia trachomatis Source Urine; N. gonorrhoeae,PCR Negative (Neg,Equiv); Neisseria Source Urine
== END 2020-09-28 22:52 | disposition home or self-care (01) ==
LOC: EC 19:27
DX: R10.9 Unspecified abdominal pain (principal); E11.65 Type 2 diabetes mellitus with hyperglycemia; F41.9 Anxiety disorder, unspecified; F32.9 Major depressive disorder, single episode, unspecified; Z79.84 Long term (current) use of oral hypoglycemic drugs; Z79.899 Other long term (current) drug therapy; Z88.0 Allergy status to penicillin; Z87.891 Personal history of nicotine dependence
CPT/HCPCS: 36415; 80053; 82150; 83690; 85025; 81001; 81025; 87808; 87491; 87591; 74177; 99284; 96374; 96361; J1170; Q9967

== ENCOUNTER 2021-02-26 17:30 | Emergency (ER) | payer OTHER ==
[2021-02-26 17:41] VITALS: TEMP 98.3
[2021-02-26 17:57] VITALS: BP 137/69; PULSE 81; RESP 20
--- NOTE | 2021-02-26 18:15 | ED ---
Lower Extremity Injury HPI - General Chief Complaint: Extremity Injury, Lower Stated Complaint: L foot pain Time Seen by Provider: 02/26/21 17:51 Source: patient Mode of arrival: ambulatory Limitations: no limitations - History of Present Illness Initial Comments: 35-year-old female presents to emergency Department with a chief complaint of left foot pain that is benign without for past several weeks. Patient denies any trauma but states the pain is located on the plantar aspect of her foot and is usually worse in the morning. This resolved slightly throughout the day, however still is persistent. Reports feeling a sharp pain whenever she is ambulated. She denies any direct injuries to the foot. Denies any associated weakness or paresthesias. Denies any previous surgeries to the foot. Patient does not have an overactive lifestyle that includes running or extensive walking. - Related Data Home Medications Medication Instructions Recorded Confirmed Pioglitazone [Actos] 45 mg PO QAM 08/25/17 05/01/20 Sertraline [Zoloft] 100 mg PO HS 08/25/17 05/01/20 metFORMIN HCL 1,000 mg PO BID 08/25/17 05/01/20 Dulaglutide [Trulicity] 0.75 mg SQ TH 07/03/18 05/01/20 Dapagliflozin Propanediol [Farxiga] 10 mg PO HS 07/31/19 05/01/20 Atorvastatin [Lipitor] 40 mg PO HS 04/30/20 05/01/20 Sertraline [Zoloft] 50 mg PO DAILY 04/30/20 05/01/20 Allergies Allergy/AdvReac Type Severity Reaction Status Date / Time amoxicillin Allergy Rash/Hives Verified 02/26/21 17:38 Review of Systems ROS Statement: Those systems with pertinent positive or pertinent negative responses have been documented in the HPI. ROS Other: All systems not noted in ROS Statement are negative. Past Medical History Past Medical History: Diabetes Mellitus, GERD/Reflux, Hyperlipidemia History of Any Multi-Drug Resistant Organisms: None Reported Past Surgical History: Orthopedic Surgery, Tubal Ligation, Uterine Ablation Additional Past Surgical History / Comment(s): L knee-ARTHROSCOPIC Past Anesthesia/Blood Transfusion Reactions: No Reported Reaction Past Psychological History: Anxiety, Depression Smoking Status: Former smoker, Vaper Past Alcohol Use History: Rare Past Drug Use History: None Reported - Past Family History Mother Family Medical History: No Reported History General Exam Limitations: no limitations General appearance: alert, in no apparent distress, obese Head exam: Present: atraumatic, normocephalic, normal inspection Eye exam: Present: normal appearance Pupils: Present: normal accommodation ENT exam: Present: normal exam, normal oropharynx, mucous membranes moist Neck exam: Present: normal inspection, full ROM. Absent: tenderness, lymphadenopathy Respiratory exam: Present: normal lung sounds bilaterally. Absent: respiratory distress Cardiovascular Exam: Present: regular rate, normal rhythm, normal heart sounds. Absent: systolic murmur Extremities exam: Present: normal inspection, full ROM, tenderness (Plantar left foot tenderness. No signs of infection.), normal capillary refill, other (Palpable DP and PT bilaterally. Sensation intact in the left foot). Absent: pedal edema, joint swelling, calf tenderness Back exam: Present: normal inspection, full ROM. Absent: tenderness Neurological exam: Present: alert, oriented X3 Psychiatric exam: Present: normal affect, normal mood Skin exam: Present: warm, dry, intact, normal color Course Vital Signs 02/26/21 02/26/21 17:38 17:40 Temperature 98.3 F Pulse Rate 72 81 Respiratory 18 20 Rate Blood Pressure 112/66 137/69 O2 Sat by Pulse 99 95 Oximetry Medical Decision Making - Medical Decision Making 35-year-old female presents to the emergency department with chief complaint of left foot pain. Based on physical examination and clinical presentation I suspect the patient has plantar fasciitis. I advised her to perform certain exercises in the morning to alleviate some of her discomfort. No imaging is necessary at this time. Patient is understanding and agreeable of her condition. I also gave her contact information to follow with coding support specialist if the symptoms continue. Case discussed with physician. Disposition Clinical Impression: Left foot pain Disposition: HOME SELF-CARE Condition: Stable Instructions (If sedation given, give patient instructions): Plantar Fasciitis (ED), Plantar Fasciitis Exercises (ED) Additional Instructions: Please return to the Emergency Department if symptoms worsen or any other concerns. Follow with coding support specialist. Is patient prescribed a controlled substance at d/c from ED?: No Referrals: Suzy Yuan MD [Primary Care Provider] - 1-2 days Bo Celis MD [STAFF PHYSICIAN] - 1-2 days Time of Disposition: 18:15
== END 2021-02-26 18:19 | disposition home or self-care (01) ==
LOC: EC 17:30
DX: M79.672 Pain in left foot (principal); E11.9 Type 2 diabetes mellitus without complications; E78.5 Hyperlipidemia, unspecified; K21.9 Gastro-esophageal reflux disease without esophagitis; F32.9 Major depressive disorder, single episode, unspecified; F41.9 Anxiety disorder, unspecified; Z87.891 Personal history of nicotine dependence; Z79.84 Long term (current) use of oral hypoglycemic drugs
CPT/HCPCS: 99283

== ENCOUNTER 2021-05-27 15:59 | Emergency (ER) | payer OTHER ==
[2021-05-27 17:02] VITALS: TEMP 97.3
[2021-05-27 17:03] LABS: Glucose,Whole Blood 264 mg/dL (75-99)
[2021-05-27] MEDS ORDERED: SODIUM CHLORIDE 0.9% 1,000 ML IV STA (20:11)
--- NOTE | 2021-05-27 20:40 | ED ---
General Adult HPI - General Chief complaint: Recheck/Abnormal Lab/Rx Stated complaint: Tingling hands Time Seen by Provider: 05/27/21 19:48 Source: patient, RN notes reviewed Mode of arrival: ambulatory Limitations: no limitations - History of Present Illness Initial comments: 35-year-old female with a past medical history of diabetes mellitus, hyperlip idemia presents to the emergency room for a chief complaint of tingling in the hands and lips. Patient states this just started today. States she checked her blood sugar was in the 400s. Patient states she doesn't usually check her blood sugar and less she feels off. States it normally is at 200. She has not followed up with her doctor in a few years. She used to be on Trulicity and another medication but never got these filled after Covid started. She does continue to take metformin. Patient states she wants to make sure the tingling is not from her diabetes.Patient has no other complaints at this time including shortness of breath, chest pain, abdominal pain, nausea or vomiting, headache, or visual changes. - Related Data Home Medications Medication Instructions Recorded Confirmed Pioglitazone [Actos] 45 mg PO QAM 08/25/17 05/01/20 Sertraline [Zoloft] 100 mg PO HS 08/25/17 05/01/20 metFORMIN HCL [Glucophage] 1,000 mg PO BID 08/25/17 05/01/20 Dulaglutide [Trulicity] 0.75 mg SQ TH 07/03/18 05/01/20 Dapagliflozin Propanediol [Farxiga] 10 mg PO HS 07/31/19 05/01/20 Atorvastatin [Lipitor] 40 mg PO HS 04/30/20 05/01/20 Sertraline [Zoloft] 50 mg PO DAILY 04/30/20 05/01/20 Allergies Allergy/AdvReac Type Severity Reaction Status Date / Time amoxicillin Allergy Rash/Hives Verified 05/27/21 17:03 Review of Systems ROS Statement: Those systems with pertinent positive or pertinent negative responses have been documented in the HPI. ROS Other: All systems not noted in ROS Statement are negative. Past Medical History Past Medical History: Diabetes Mellitus, GERD/Reflux, Hyperlipidemia History of Any Multi-Drug Resistant Organisms: None Reported Past Surgical History: Orthopedic Surgery, Tubal Ligation, Uterine Ablation Additional Past Surgical History / Comment(s): L knee-ARTHROSCOPIC Past Anesthesia/Blood Transfusion Reactions: No Reported Reaction Past Psychological History: Anxiety, Depression Smoking Status: Former smoker, Vaper Past Alcohol Use History: Rare Past Drug Use History: None Reported - Past Family History Mother Family Medical History: No Reported History General Exam Limitations: no limitations General appearance: alert, in no apparent distress Head exam: Present: atraumatic Eye exam: Present: normal appearance, PERRL, EOMI. Absent: scleral icterus, conjunctival injection ENT exam: Present: normal exam, normal oropharynx, mucous membranes moist, normal external ear exam Neck exam: Present: normal inspection, full ROM. Absent: tenderness Respiratory exam: Present: normal lung sounds bilaterally. Absent: respiratory distress, wheezes Cardiovascular Exam: Present: regular rate, normal rhythm, normal heart sounds Extremities exam: Present: other (sensation intact BUE) Course Vital Signs 05/27/21 16:56 Temperature 97.3 F L Pulse Rate 85 Respiratory 19 Rate Blood Pressure 106/70 O2 Sat by Pulse 98 Oximetry Medical Decision Making - Medical Decision Making Vitals are stable. Patient is well-appearing. CBC is unremarkable. CMP unremarkable. Patient does have some dehydration. Glucose only mildly elevated at 222. Patient was given a liter of fluid. Urinalysis unremarkable. 1+ ketones likely related to dehydration. Anion gap is normal. At this time patient likely is experiencing paresthesias. She can follow up outpatient. If she has any worsening symptoms she'll return to the emergency room. - Lab Data Result diagrams: 05/27/21 20:12 05/27/21 20:12 Lab Results 05/27/21 05/27/21 05/27/21 Range/Units 17:02 20:12 20:12 WBC 9.3 (3.8-10.6) k/uL RBC 4.25 (3.80-5.40) m/uL Hgb 13.6 (11.4-16.0) gm/dL Hct 41.0 (34.0-46.0) % MCV 96.6 (80.0-100.0) fL MCH 32.0 (25.0-35.0) pg MCHC 33.1 (31.0-37.0) g/dL RDW 12.0 (11.5-15.5) % Plt Count 253 (150-450) k/uL MPV 7.8 Neutrophils % 67 % Lymphocytes % 25 % Monocytes % 5 % Eosinophils % 1 % Basophils % 0 % Neutrophils # 6.2 (1.3-7.7) k/uL Lymphocytes # 2.3 (1.0-4.8) k/uL Monocytes # 0.5 (0-1.0) k/uL Eosinophils # 0.1 (0-0.7) k/uL Basophils # 0.0 (0-0.2) k/uL Sodium 133 L (137-145) mmol/L Potassium 4.0 (3.5-5.1) mmol/L Chloride 101 (98-107) mmol/L Carbon Dioxide 21 L (22-30) mmol/L Anion Gap 11 mmol/L BUN 22 H (7-17) mg/dL Creatinine 0.52 (0.52-1.04) mg/dL Est GFR (CKD-EPI)AfAm >90 (>60 ml/min/1.73 sqM) Est GFR (CKD-EPI)NonAf >90 (>60 ml/min/1.73 sqM) Glucose 222 H (74-99) mg/dL POC Glucose (mg/dL) 264 H (75-99) mg/dL POC Glu [employer] ID Darlin Morales Calcium 9.3 (8.4-10.2) mg/dL Magnesium 1.6 (1.6-2.3) mg/dL Total Bilirubin 0.6 (0.2-1.3) mg/dL AST 23 (14-36) U/L ALT 23 (4-34) U/L Alkaline Phosphatase 79 (38-126) U/L Total Protein 7.6 (6.3-8.2) g/dL Albumin 4.5 (3.5-5.0) g/dL Urine Color Urine Appearance (Clear) Urine pH (5.0-8.0) Ur Specific [place] (1.001-1.035) Urine Protein (Negative) Urine Glucose (UA) (Negative) Urine Ketones (Negative) Urine Blood (Negative) Urine Nitrite (Negative) Urine Bilirubin (Negative) Urine Urobilinogen (<2.0) mg/dL Ur Leukocyte Esterase (Negative) Urine RBC (0-5) /hpf Urine WBC (0-5) /hpf Ur Squamous Epith Cells (0-4) /hpf Urine Mucus (None) /hpf Urine HCG, Qual (Not Detectd) 05/27/21 05/27/21 Range/Units 20:13 20:13 WBC (3.8-10.6) k/uL RBC (3.80-5.40) m/uL Hgb (11.4-16.0) gm/dL Hct (34.0-46.0) % MCV (80.0-100.0) fL MCH (25.0-35.0) pg MCHC (31.0-37.0) g/dL RDW (11.5-15.5) % Plt Count (150-450) k/uL MPV Neutrophils % % Lymphocytes % % Monocytes % % Eosinophils % % Basophils % % Neutrophils # (1.3-7.7) k/uL Lymphocytes # (1.0-4.8) k/uL Monocytes # (0-1.0) k/uL Eosinophils # (0-0.7) k/uL Basophils # (0-0.2) k/uL Sodium (137-145) mmol/L Potassium (3.5-5.1) mmol/L Chloride (98-107) mmol/L Carbon Dioxide (22-30) mmol/L Anion Gap mmol/L BUN (7-17) mg/dL Creatinine (0.52-1.04) mg/dL Est GFR (CKD-EPI)AfAm (>60 ml/min/1.73 sqM) Est GFR (CKD-EPI)NonAf (>60 ml/min/1.73 sqM) Glucose (74-99) mg/dL POC Glucose (mg/dL) (75-99) mg/dL POC Glu [employer] ID Calcium (8.4-10.2) mg/dL Magnesium (1.6-2.3) mg/dL Total Bilirubin (0.2-1.3) mg/dL AST (14-36) U/L ALT (4-34) U/L Alkaline Phosphatase (38-126) U/L Total Protein (6.3-8.2) g/dL Albumin (3.5-5.0) g/dL Urine Color Light Yellow Urine Appearance Cloudy H (Clear) Urine pH 5.0 (5.0-8.0) Ur Specific [place] 1.041 H (1.001-1.035) Urine Protein Negative (Negative) Urine Glucose (UA) 4+ H (Negative) Urine Ketones 1+ H (Negative) Urine Blood Negative (Negative) Urine Nitrite Negative (Negative) Urine Bilirubin Negative (Negative) Urine Urobilinogen <2.0 (<2.0) mg/dL Ur Leukocyte Esterase Trace H (Negative) Urine RBC 2 (0-5) /hpf Urine WBC 23 H (0-5) /hpf Ur Squamous Epith Cells 6 H (0-4) /hpf Urine Mucus Moderate H (None) /hpf Urine HCG, Qual Not Detected (Not Detectd) Disposition Clinical Impression: Paresthesia Disposition: HOME SELF-CARE Condition: Good Instructions (If sedation given, give patient instructions): Paresthesia (ED) Additional Instructions: Please follow-up with your doctor in one to 2 days. Return to the emergency room for any worsening symptoms. Is patient prescribed a controlled substance at d/c from ED?: No Referrals: Suzy Yuan MD [Primary Care Provider] - 1-2 days Time of Disposition: 21:32
[2021-05-27 20:43] LABS: Basophils % (A) 0 %; Eosinophils # (A) 0.1 k/uL (0-0.7); Eosinophils % (A) 1 %; HGB 13.6 gm/dL (11.4-16.0); Lymphocytes # (A) 2.3 k/uL (1.0-4.8); Lymphocytes % (A) 25 %; MCHC 33.1 g/dL (31.0-37.0); MCV 96.6 fL (80.0-100.0); Mean Platelet Volume 7.8; Monocytes # (A) 0.5 k/uL (0-1.0); Monocytes % (A) 5 %; Neutrophils # (A) 6.2 k/uL (1.3-7.7); Neutrophils % (A) 67 %; Platelet Count 253 k/uL (150-450); RBC 4.25 m/uL (3.80-5.40); WBC 9.3 k/uL (3.8-10.6)
[2021-05-27 21:01] LABS: ALT 23 U/L (4-34); AST 23 U/L (14-36); African American GFR (CKD) >90 (>60 ml/min/1.73 sqM); Albumin 4.5 g/dL (3.5-5.0); Alkaline Phosphatase 79 U/L (38-126); Anion Gap 11 mmol/L; Blood Urea Nitrogen 22 mg/dL (7-17); Calcium 9.3 mg/dL (8.4-10.2); Carbon Dioxide 21 mmol/L (22-30); Chloride 101 mmol/L (98-107); Glucose 222 mg/dL (74-99); Magnesium 1.6 mg/dL (1.6-2.3); Non-African American GFR(CKD) >90 (>60 ml/min/1.73 sqM); Sodium 133 mmol/L (137-145); Total Bilirubin 0.6 mg/dL (0.2-1.3); Total Protein 7.6 g/dL (6.3-8.2)
[2021-05-27 21:02] LABS: Appearance,Urine Cloudy (Clear); Bilirubin,Urine Negative (Negative); Blood,Urine Negative (Negative); Color,Urine Light Yellow; Glucose,Urine (UA) 4+ (Negative); Ketones,Urine 1+ (Negative); Leukocyte Esterase,Urine Trace (Negative); Mucus,Urine Moderate /hpf; Nitrite,Urine Negative (Negative); Protein,Urine Negative (Negative); RBC,Urine 2 /hpf (0-5); Specific Gravity,Urine 1.041 (1.001-1.035); Squamous Epithelial Cell,Urine 6 /hpf (0-4); Urobilinogen,Urine <2.0 mg/dL (<2.0); WBC,Urine 23 /hpf (0-5)
[2021-05-27 23:06] VITALS: BP 114/74; PULSE 91; RESP 18
== END 2021-05-27 23:06 | disposition home or self-care (01) ==
LOC: EC 15:59
DX: R20.2 Paresthesia of skin (principal); E11.9 Type 2 diabetes mellitus without complications; E78.5 Hyperlipidemia, unspecified; K21.9 Gastro-esophageal reflux disease without esophagitis; F32.9 Major depressive disorder, single episode, unspecified; F41.9 Anxiety disorder, unspecified; Z87.891 Personal history of nicotine dependence; Z79.84 Long term (current) use of oral hypoglycemic drugs
CPT/HCPCS: 36415; 80053; 81001; 81025; 83735; 85025; 87086; 96360; 99284

== ENCOUNTER → 2021-06-26 | Outpatient (CLI) | payer OTHER ==
--- NOTE | 2021-06-26 10:22 | ECHOF ---
Referral Reason:R42 dizziness R06.02 Shortness of Breath, R94.31.. MEASUREMENTS -------- HEIGHT: 160.0 cm WEIGHT: 117.9 kg BP: RVIDd: 3.2 cm (< 3.3) IVSd: 0.9 cm (0.6 - 1.1) LVIDd: 4.2 cm (3.9 - 5.3) LVPWd: 1.0 cm (0.6 - 1.1) IVSs: 2.1 cm LVIDs: 1.9 cm LVPWs: 2.1 cm LAESV Index (A-L): 19.24 ml/m Ao Diam: 2.8 cm (2.0 - 3.7) AV Cusp: 2.0 cm (1.5 - 2.6) LA Diam: 3.7 cm (2.7 - 3.8) MV EXCURSION: 23.601 mm (> 18.000) MV EF SLOPE: 103 mm/s (70 - 150) EPSS: 0.6 cm MV E Vickey: 1.23 m/s MV DecT: 256 ms MV A Vickey: 0.64 m/s MV E/A Ratio: 1.91 RAP: 5.00 mmHg RVSP: 11.68 mmHg FINDINGS -------- Sinus rhythm. This was a technically good study. The left ventricular size is normal. Left ventricular wall thickness is normal. Overall left vent ricular systolic function is normal with, an EF between 55 - 60 %. The diastolic filling pattern is normal for the age of the patient 11.67. The right ventricle is normal in size. Normal LA size by volume 22+/-6 ml/m2. The right atrial size is normal. The aortic valve is trileaflet, and appears structurally normal. No aortic stenosis or regurgitation. The mitral valve is normal. There is trace to mild mitral regurgitation. The tricuspid valve appears structurally normal. Trace tricuspid regurgitation present. Right adeola tricular systolic pressure is normal at < 35 mmHg. There is no pulmonic regurgitation present. The aortic root size is normal. Normal inferior vena cava with normal inspiratory collapse consistent with estimated right atrial pre ssure of 5 mmHg. There is no pericardial effusion. CONCLUSIONS -------- 1. Left ventricular wall thickness is normal. 2. Overall left ventricular systolic function is normal with, an EF between 55 - 60 %. 3. Normal LA size by volume 22+/-6 ml/m2. 4. The aortic valve is trileaflet, and appears structurally normal. No aortic stenosis or regurgitati on. 5. There is trace to mild mitral regurgitation. 6. Trace tricuspid regurgitation present. 7. There is no pericardial effusion. STOCK OR DELIVERY CLERK: Peggy Palomino RDCS
--- NOTE | 2021-06-26 15:24 | ECHOS ---
STRESS ECHOCARDIOGRAM INDICATIONS: Dizziness and difficulty in breathing. BASELINE HEART RATE: 82 BASELINE BLOOD PRESSURE: 102/69 MAXIMUM HEART RATE: 160 MAXIMUM BLOOD PRESSURE: 128/81 85% MPHR: 157 100% MPHR: 185 METS: 8.3 MAXIMUM STAGE REACHED: 3 TOTAL EXERCISE TIME: 7:00 CLINICAL INFORMATION: Baseline rhythm is sinus mechanism, rate of 82, normal axis and intervals, poor R-wave progression, baseline blood pressure 216/72 mmHg. Patient exercised on Lance protocol for 7 minutes, reaching peak rate of 160 beats per minute, which is equal to 86% of maximum predicted heart rate. Peak blood pressure 128/81 mmHg. Test was terminated secondary to fatigue. There was no chest pain. Electrocardiograph monitoring revealed no evidence of diagnostic ischemic ST deviation. FINDINGS: Baseline echocardiogram revealed normal wall thickening and motion. At peak exercise there was normal wall motion augmentation with no hypokinesis or dyskinesis. CONCLUSION: 1. Decreased exercise tolerance with normal echocardiograph response to exercise. 2. Normal stress echocardiogram with no evidence of stress-induced ischemia. MMODL / IJN: [id number] /
--- NOTE | 2021-06-27 15:26 | US ---
EXAMINATION TYPE: US carotid duplex BILAT DATE OF EXAM: 06/26/2021 COMPARISON: NONE CLINICAL HISTORY: R20.2 Paresthesia of skin. EXAM MEASUREMENTS: RIGHT: Peak Systolic Velocity (PSV) cm/sec ----- Right CCA: 112.8 ----- Right ICA: 112.8 ----- Right ECA: 133.1 ICA/CCA ratio: 1.0 RIGHT: End Diastole cm/sec ----- Right CCA: 34.3 ----- Right ICA: 51.7 ----- Right ECA: 29.9 LEFT: Peak Systolic Velocity (PSV) cm/sec ----- Left CCA: 115.7 ----- Left ICA: 113.7 ----- Left ECA: 132.0 ICA/CCA ratio: 1.0 LEFT: End Diastole cm/sec ----- Left CCA: 38.1 ----- Left ICA: 52.7 ----- Left ECA: 22.3 VERTEBRALS (direction of flow): Right Vertebral: Antegrade Left Vertebral: Antegrade Rhythm: Normal No significant stenosis . No obvious atheromatous plaques evident. IMPRESSION: 1. No significant flow-limiting stenosis based on ultrasound velocities. Criteria for Assigning % of Stenosis / Diameter reduction (Estimation based on the indirect measurements of the internal carotid artery velocities (ICA PSV). 1. Normal (no stenosis)=ICA PSV < 125 cm/s: ratio < 2.0: ICA EDV<40 cm/s. 2. Less than 50% stenosis=ICA PSV < 125 cm/s: ratio < 2.0: ICA EDV<40 cm/s. 3. 50 to 69% stenosis=ICA PSV of 125 to 230 cm/s: ration 2.0 ? 4.0: ICA EDV 40-100 cm/s. 4. Greater than 70% stenosis to near occlusion= ICA PSV > 230 cm/s: ratio > 4.0: ICA EDV > 100 cm/s. 5. Near occlusion= ICA PSV velocities may be low or undetectable: variable ratio and ICA EDV. 6. Total occlusion=unable to detect flow.
== END | disposition home or self-care (01) ==
LOC: RADECHMAIN 08:24
PROVIDERS: ATTEND Family Medicine
DX: I08.1 Rheumatic disorders of both mitral and tricuspid valves (principal); R06.02 Shortness of breath; R20.2 Paresthesia of skin
CPT/HCPCS: 93306; 93351; 93880

== ENCOUNTER → 2021-06-29 | Outpatient (CLI) | payer OTHER ==
--- NOTE | 2021-06-29 08:37 | MR ---
EXAMINATION TYPE: MR brain wo con DATE OF EXAM: 06/29/2021 COMPARISON: NONE HISTORY: Dizziness, Paresthesia TECHNIQUE: Multiplanar, multisequence imaging of the brain and brainstem is performed without IV cont rast. FINDINGS: Diffusion weighted images demonstrate no evidence of a recent infarct or other diffusion abnormality. There is no extraaxial fluid collection or significant white matter signal abnormality. The ventricu lar system and cisternal spaces are normal in size and appearance. The brain volume is age appropria te. Midline structures demonstrate normal morphology. The craniocervical junction appears within normal limits. Normal vascular flow voids are present. Mild mucosal thickening involving anterior ethmoid si nuses bilaterally. Remainder of the paranasal sinuses are clear. Globes are intact bilaterally. There is 1.1 cm Thornwaldt cyst in the posterior nasopharynx axial image 6 suspected. IMPRESSION: No significant findings seen to account for patient's symptoms of dizziness and paresthes ia. Mild anterior chronic ethmoid sinus disease. 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
== END | disposition home or self-care (01) ==
LOC: RADMRIMAIN 07:14
PROVIDERS: ATTEND Family Medicine
DX: R42 Dizziness and giddiness (principal); R20.2 Paresthesia of skin; J32.2 Chronic ethmoidal sinusitis
CPT/HCPCS: 70551

== ENCOUNTER 2021-07-03 19:33 | Emergency (ER) | payer OTHER ==
[2021-07-03 20:01] VITALS: TEMP 98.4
[2021-07-03] MEDS ORDERED: MECLIZINE 12.5 MG TAB PO STA (21:51)
--- NOTE | 2021-07-03 21:55 | ED ---
Dizziness HPI - General Chief Complaint: Dizziness Stated Complaint: Dizziness Revisit Time Seen by Provider: 07/03/21 20:59 Source: patient, family Mode of arrival: ambulatory Limitations: no limitations - History of Present Illness MD Complaint: dizziness Onset/Timin -: days(s) Timing: sudden onset Description: "room spinning", nausea History of Same: Yes History of Trauma: No Severity: moderate Improves With: remaining still Worsens With: movement Associated Symptoms: denies other symptoms - Related Data Home Medications Medication Instructions Recorded Confirmed metFORMIN HCL [Glucophage] 1,000 mg PO BID 08/25/17 07/03/21 Dapagliflozin Propanediol [Farxiga] 10 mg PO DAILY 07/31/19 07/03/21 Atorvastatin [Lipitor] 40 mg PO HS 04/30/20 07/03/21 Escitalopram [Lexapro] 20 mg PO HS 07/03/21 07/03/21 Metoprolol Tartrate [Lopressor] 25 mg PO DAILY PRN 07/03/21 07/03/21 Pioglitazone [Actos] 45 mg PO DAILY 07/03/21 07/03/21 lisinopriL [Zestril] 2.5 mg PO HS 07/03/21 07/03/21 Previous Rx's Medication Instructions Recorded Meclizine [Antivert] 25 mg PO TID PRN #15 tab 07/04/21 Allergies Allergy/AdvReac Type Severity Reaction Status Date / Time No Known Allergies Allergy Verified 07/03/21 21:39 Review of Systems ROS Statement: Those systems with pertinent positive or pertinent negative responses have been documented in the HPI. ROS Other: All systems not noted in ROS Statement are negative. Constitutional: Denies: fever, chills Respiratory: Denies: cough, dyspnea Cardiovascular: Denies: chest pain, palpitations Gastrointestinal: Reports: nausea. Denies: abdominal pain, vomiting Genitourinary: Denies: dysuria, hematuria Musculoskeletal: Denies: back pain Skin: Denies: rash Neurological: Reports: vertigo. Denies: headache, weakness, numbness, paresthesias, confusion Past Medical History Past Medical History: Diabetes Mellitus, GERD/Reflux, Hyperlipidemia History of Any Multi-Drug Resistant Organisms: None Reported Past Surgical History: Orthopedic Surgery, Tubal Ligation, Uterine Ablation Additional Past Surgical History / Comment(s): L knee-ARTHROSCOPIC Past Anesthesia/Blood Transfusion Reactions: No Reported Reaction Past Psychological History: Anxiety, Depression Smoking Status: Former smoker, Vaper Past Alcohol Use History: Rare Past Drug Use History: None Reported - Past Family History Mother Family Medical History: No Reported History General Exam Limitations: no limitations General appearance: alert, in no apparent distress Head exam: Present: atraumatic, normocephalic, normal inspection Eye exam: Present: normal appearance. Absent: scleral icterus, conjunctival injection ENT exam: Present: normal oropharynx Neck exam: Present: normal inspection Respiratory exam: Present: normal lung sounds bilaterally. Absent: respiratory distress, wheezes, rales, rhonchi, stridor Cardiovascular Exam: Present: regular rate, normal rhythm, normal heart sounds. Absent: systolic murmur, diastolic murmur, rubs, gallop GI/Abdominal exam: Present: soft. Absent: distended, tenderness, guarding, rebound, rigid, mass Extremities exam: Present: normal inspection, normal capillary refill. Absent: pedal edema, calf tenderness Back exam: Present: normal inspection. Absent: CVA tenderness (R), CVA tenderness (L) Neurological exam: Present: alert Skin exam: Present: warm, dry, intact, normal color. Absent: rash Course Vital Signs 07/03/21 07/03/21 07/03/21 19:55 22:38 23:28 Temperature 98.4 F Pulse Rate 83 74 72 Respiratory 22 20 18 Rate Blood Pressure 100/66 143/79 113/62 O2 Sat by Pulse 100 100 99 Oximetry EKG Findings - EKG Results: EKG: interpreted by BRIAN CHRISTIANSEN, sinus rhythm (Rate 77 bpm), normal axis, normal QRS, normal ST/T, no acute changes Medical Decision Making - Lab Data Result diagrams: 07/03/21 22:35 07/03/21 22:35 Lab Results 07/03/21 07/03/21 Range/Units 22:35 22:35 WBC 7.2 (3.8-10.6) k/uL RBC 4.17 (3.80-5.40) m/uL Hgb 13.6 (11.4-16.0) gm/dL Hct 40.9 (34.0-46.0) % MCV 98.0 (80.0-100.0) fL MCH 32.7 (25.0-35.0) pg MCHC 33.3 (31.0-37.0) g/dL RDW 12.0 (11.5-15.5) % Plt Count 250 (150-450) k/uL MPV 7.6 Neutrophils % 77 % Lymphocytes % 15 % Monocytes % 5 % Eosinophils % 1 % Basophils % 0 % Neutrophils # 5.6 (1.3-7.7) k/uL Lymphocytes # 1.1 (1.0-4.8) k/uL Monocytes # 0.4 (0-1.0) k/uL Eosinophils # 0.1 (0-0.7) k/uL Basophils # 0.0 (0-0.2) k/uL Sodium 135 L (137-145) mmol/L Potassium 4.2 (3.5-5.1) mmol/L Chloride 102 (98-107) mmol/L Carbon Dioxide 26 (22-30) mmol/L Anion Gap 7 mmol/L BUN 11 (7-17) mg/dL Creatinine 0.81 (0.52-1.04) mg/dL Est GFR (CKD-EPI)AfAm >90 (>60 ml/min/1.73 sqM) Est GFR (CKD-EPI)NonAf >90 (>60 ml/min/1.73 sqM) Glucose 297 H (74-99) mg/dL Calcium 9.2 (8.4-10.2) mg/dL Total Bilirubin 0.3 (0.2-1.3) mg/dL AST 17 (14-36) U/L ALT 20 (4-34) U/L Alkaline Phosphatase 100 (38-126) U/L Total Protein 6.9 (6.3-8.2) g/dL Albumin 4.0 (3.5-5.0) g/dL Disposition Clinical Impression: Vertigo, Hyperglycemia Disposition: HOME SELF-CARE Condition: Good Instructions (If sedation given, give patient instructions): Vertigo (ED), Diabetic Hyperglycemia (ED) Prescriptions: Meclizine [Antivert] 25 mg PO TID PRN #15 tab PRN Reason: Vertigo Is patient prescribed a controlled substance at d/c from ED?: No Referrals: Suzy Yuan MD [Primary Care Provider] - 1-2 days
[2021-07-03 22:51] LABS: Basophils % (A) 0 %; Eosinophils # (A) 0.1 k/uL (0-0.7); Eosinophils % (A) 1 %; HCT 40.9 % (34.0-46.0); HGB 13.6 gm/dL (11.4-16.0); Lymphocytes # (A) 1.1 k/uL (1.0-4.8); Lymphocytes % (A) 15 %; MCH 32.7 pg (25.0-35.0); MCHC 33.3 g/dL (31.0-37.0); Mean Platelet Volume 7.6; Monocytes # (A) 0.4 k/uL (0-1.0); Monocytes % (A) 5 %; Neutrophils # (A) 5.6 k/uL (1.3-7.7); Neutrophils % (A) 77 %; Platelet Count 250 k/uL (150-450); RBC 4.17 m/uL (3.80-5.40); WBC 7.2 k/uL (3.8-10.6)
[2021-07-03 23:00] LABS: ALT 20 U/L (4-34); AST 17 U/L (14-36); African American GFR (CKD) >90 (>60 ml/min/1.73 sqM); Alkaline Phosphatase 100 U/L (38-126); Anion Gap 7 mmol/L; Blood Urea Nitrogen 11 mg/dL (7-17); Calcium 9.2 mg/dL (8.4-10.2); Carbon Dioxide 26 mmol/L (22-30); Chloride 102 mmol/L (98-107); Glucose 297 mg/dL (74-99); Non-African American GFR(CKD) >90 (>60 ml/min/1.73 sqM); Potassium 4.2 mmol/L (3.5-5.1); Sodium 135 mmol/L (137-145); Total Bilirubin 0.3 mg/dL (0.2-1.3); Total Protein 6.9 g/dL (6.3-8.2)
[2021-07-03 23:32] VITALS: BP 113/62; PULSE 72; RESP 18
[2021-07-03] MEDS ORDERED: SODIUM CHLORIDE 0.9% 1,000 ML IV ONE (23:41)
[2021-07-03] MEDS ORDERED: INSULIN REGULAR 100 UNIT/ML VIAL (IV) IV STA (23:41)
[2021-07-04] MEDS ORDERED: KETOROLAC 15 MG/ML 1 ML VIAL IVP STA (00:15)
== END 2021-07-04 00:49 | disposition home or self-care (01) ==
LOC: EC 19:33
DX: R42 Dizziness and giddiness (principal); E11.65 Type 2 diabetes mellitus with hyperglycemia; E78.5 Hyperlipidemia, unspecified; F41.9 Anxiety disorder, unspecified; F32.A Depression, unspecified; F17.290 Nicotine dependence, other tobacco product, uncomplicated; Z72.89 Other problems related to lifestyle; Z79.84 Long term (current) use of oral hypoglycemic drugs
CPT/HCPCS: 36415; 93005; 80053; 85025; 99284; 96374; J1885

== ENCOUNTER 2021-10-05 11:05 | Day surgery (SDC) | payer OTHER ==
[2021-10-01 11:29] VITALS: BMI 45.7
[~2021-10-05 11:05] MED LIST changes: +ACETAMINOPHEN TAB 500 MG TAB PO PRN; +DEXAMETHASONE SOD PHOSPHATE 4 MG/ML 1 ML VIAL IV ONE; +HEPARIN SODIUM,PORCINE/PF 5,000 UNIT/0.5 ML SYRINGE SQ PRN; -LACTATED RINGERS 1,000 ML IV SCH; +LIDOCAINE 1% (10MG/ML) FOR IV START INTRADERMA PRN; +ONDANSETRON 4 MG/2 ML VIAL IVP ONE; +SCOPOLAMINE 1.5MG/72HR PATCH TRANSDERM ONE
[2021-10-05 11:55] LABS: Glucose,Whole Blood 134 mg/dL (75-99)
[2021-10-05] MEDS: LACTATED RINGERS 1,000 ML IV SCH ×2 (11:56→13:28)
[2021-10-05] MEDS ORDERED: NEOSTIGMINE 1 MG/ML 10 ML VIAL ONE (13:30)
[2021-10-05] MEDS ORDERED: PROPOFOL 10 MG/ML 20 ML VIAL IV ONE (13:30)
[2021-10-05] MEDS ORDERED: fentaNYL (PF) 50 MCG/ML 2 ML AMP ONE (13:30)
[2021-10-05] MEDS ORDERED: HYDROmorphone (PF) 1 MG/ML ONE (13:30)
[2021-10-05] MEDS ORDERED: GLYCOPYRROLATE 0.2 MG/ML 2 ML VIAL ONE (13:30)
[2021-10-05] MEDS ORDERED: MIDAZOLAM 2 MG/2 ML VIAL ONE (13:30)
[2021-10-05] MEDS ORDERED: ROCURONIUM 10 MG/ML (5 ML VIAL) IV ONE (13:30)
[2021-10-05] MEDS ORDERED: LIDOCAINE 1% INJ 10MG/ML (20 ML MDV) ONE (13:30)
[2021-10-05] MEDS ORDERED: SUCCINYLCHOLINE CHLORIDE 100 MG/5 ML SYR IV ONE (13:30)
[2021-10-05] MEDS ORDERED: BUPIVACAINE (PF) 0.25% 30 ML VIAL SQ ONE ×2 (13:42→13:56)
--- NOTE | 2021-10-05 14:42 | P.OP ---
Date of Procedure: 10/05/21 Procedure(s) Performed: PREOPERATIVE DIAGNOSIS: Gallstone pancreatitis POSTOPERATIVE DIAGNOSIS: Same PROCEDURE: Laparoscopic cholecystectomy SURGEON: Guero EBL: Minimal see anesthesia record ANESTHESIA: Gen. COMPLICATIONS: None OPERATIVE PROCEDURE: The patient was brought and placed on the operating room [facility] in the supine position. The patient was placed under general anesthesia at that time. The abdomen was prepped and draped in the usual sterile fashion. A small vertical infraumbilical incision was made. The fascia was grasped with the Yonatan forceps. The fascia was retracted anteriorly. The Veress needle was advanced into the peritoneal cavity. The saline drop test was normal. Insufflation took place up to 15 mmHg. A 5 mm optical trocar was advanced and the peritoneal cavity. 2 additional 5 mm trochars were placed in the right upper quadrant under direct visualization. A 12 mm trocar was advanced into the epigastric incision site. The gallbladder was retracted superiorly and laterally. The peritoneum overlying the infundibulum was bluntly dissected. The patient's cystic duct was visualized. The junction between the cystic duct common and hepatic duct was identified. The critical view of safety was achieved after blunt dissection. The cystic duct was then divided after placement of 3 12 mm clips on the patient's side and one on the specimen side. The cystic artery was identified and clipped as well. A small vessel was seen along the gallbladder fossa and clipped as well. The gallbladder was then removed from the liver bed using electrocautery. The gallbladder was then removed from the epigastric trocar site with an Endo Catch bag. The gallbladder fossa was irrigated with saline. There was no evidence of any bleeding or biliary drainage seen. The fascia at the 12 millimeter site was closed using a German-[place] 0 Vicryl stitch. The trochars were then removed. The skin at all 4 sites was closed using a 4-0 Monocryl stitch. Skin glue was utilized on the incision sites. At the end of this procedure the sponge and needle counts were correct. DISPOSITION: Stable to the recovery room
[2021-10-05 14:49] VITALS: TEMP 97.1
[2021-10-05] MEDS: HYDROmorphone 0.5 MG/0.5 ML SYRINGE IVP PRN ×2 (14:52→15:05)
[2021-10-05 15:13] LABS: Glucose,Whole Blood 184 mg/dL (75-99)
[2021-10-05] MEDS: MEPERIDINE 50 MG/ML SYRINGE IVP ONE ×2 (15:16→15:25)
[2021-10-05] MEDS ORDERED: KETOROLAC 15 MG/ML 1 ML VIAL IVP ONE (15:50)
[2021-10-05 16:52] VITALS: RESP 16
[2021-10-05 17:19] VITALS: BP 111/72; PULSE 90
[2021-10-05] MEDS ORDERED: ACETAMINOPHEN TAB 325 MG TAB PO SCH (18:00)
[2021-10-05] MEDS ORDERED: IBUPROFEN 600 MG TAB PO SCH (21:00)
== END 2021-10-05 18:02 | disposition home or self-care (01) ==
LOC: OR 11:05
PROVIDERS: ATTEND Surgery
DX: K80.10 Calculus of gallbladder with chronic cholecystitis without obstruction (principal); Z79.899 Other long term (current) drug therapy; Z79.84 Long term (current) use of oral hypoglycemic drugs; E11.9 Type 2 diabetes mellitus without complications; K21.9 Gastro-esophageal reflux disease without esophagitis; E78.5 Hyperlipidemia, unspecified; Z98.51 Tubal ligation status; Z98.890 Other specified postprocedural states; Z83.3 Family history of diabetes mellitus; Z83.438 Family history of other disorder of lipoprotein metabolism and other lipidemia; Z82.49 Family history of ischemic heart disease and other diseases of the circulatory system; Z87.891 Personal history of nicotine dependence; I10 Essential (primary) hypertension
CPT/HCPCS: 81025; 88304; 47562; J2250; J1100; J2710; J2175; J0690; J2405; J2001; J3010; J1170 ×2; J1885; J0330; J2704; J1790; J1644

== ENCOUNTER → 2022-06-04 | Outpatient (CLI) | payer OTHER ==
--- NOTE | 2022-06-06 05:05 | MR ---
EXAMINATION TYPE: MR knee LT wo con DATE OF EXAM: 06/04/2022 COMPARISON: Prior MRI left knee June 29, 2019 HISTORY: Lt knee anterior and posterior pain, swelling and locking x6 months. Internal derangement. H istory of prior surgery. Primary osteoarthritis. TECHNIQUE: Multiplanar, multisequence imaging of the left knee is performed without IV contrast. FINDINGS: MEDIAL MENISCUS: Medial extrusion medial meniscus on coronal images redemonstrated. Truncated appeara nce to the posterior horn with abnormal increased signal greatest along posterior margin. LATERAL MENISCUS: Anterior and posterior horns are intact without tear. CRUCIATE LIGAMENTS: The posterior cruciate ligament is intact and unremarkable. Anterior cruciate lig ament shows marked increased signal and fanning of fibers which is more prominent from prior study. COLLATERAL LIGAMENTS: The medial collateral ligament and lateral collateral ligament complex are inta ct and unremarkable. EXTENSOR MECHANISM: Visualized quadriceps and patellar tendons are intact. EFFUSION: Moderate to large size suprapatellar joint effusion is now present. POPLITEAL CYST: No popliteal/mckinley cyst. TRICOMPARTMENT SPACES: Mild to moderate tricompartment joint space loss and mild spurring with interv al degenerative progression from 2019 MRI. More prominent lateral positioning or subluxation of the p atella seen best on axial images. CARTILAGE: Areas of cartilaginous loss medial tibiofemoral compartment and inferior aspect of the pos terior patella. BONE MARROW SIGNAL: Heterogeneity consistent with red marrow reconversion is redemonstrated. OTHER: No additional significant abnormality is appreciated. IMPRESSION: 1. Interval medial meniscal surgery is felt present. Recurrent tearing in the remnant posterior horn is likely. 2. 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 3. Moderate to large-sized suprapatellar joint effusion are present. 4. Mild to moderate tricompartment degenerative changes with interval degenerative progression from 2 019 MRI. Lateral subluxation of the patella is now present. No suspicious focal osseous edema.
== END | disposition home or self-care (01) ==
LOC: RADMRIMAIN 14:11
PROVIDERS: ATTEND Orthopaedic Surgery
DX: M17.12 Unilateral primary osteoarthritis, left knee (principal); M23.92 Unspecified internal derangement of left knee

== ENCOUNTER 2023-02-09 05:04 | Inpatient (IN) | payer OTHER ==
[2023-02-09] MEDS ORDERED: SODIUM CHLORIDE 0.9% 1,000 ML IV STA (05:22)
[2023-02-09] MEDS ORDERED: ADENOSINE 3 MG/ML 2 ML VIAL IVP STA ×2 (05:23→10:29)
--- NOTE | 2023-02-09 05:33 | ED ---
Arrhythmia/Palpitations HPI - General Chief Complaint: Arrhythmia/Palpitations Stated Complaint: Chest Pain Time Seen by Provider: 02/09/23 05:20 Source: patient, RN notes reviewed, old records reviewed Mode of arrival: ambulatory Limitations: no limitations - History of Present Illness Initial Comments: This is a 37-year-old female in significant distress presents under her own accord to the emergency department. Patient does not feel well physical heart is racing sweaty feels like she is going to pass out. MD Complaint: rapid heart beat, "heart racing", "skipped beats", irregular heart beat -: hour(s) Arrhythmia History: other (0) Associated Symptoms: chest pain, shortness of breath, near-syncope Treatments Prior to Arrival: vagal maneuvers (Did attempt vagal maneuver here in the ER), other (0) - Related Data Home Medications Medication Instructions Recorded Confirmed metFORMIN HCL [Glucophage] 1,000 mg PO BID 08/25/17 02/09/23 Dapagliflozin Propanediol [Farxiga] 10 mg PO DAILY 07/31/19 02/09/23 Pioglitazone [Actos] 45 mg PO DAILY 07/03/21 02/09/23 Gabapentin [Neurontin] 200 mg PO HS 02/09/23 02/09/23 Semaglutide [Rybelsus] 14 mg PO DAILY 02/09/23 02/09/23 Tiotropium 2.5 Mcg/Puff [Spiriva 2 puff INHALATION RT-DAILY 02/09/23 02/09/23 Respimat 2.5 Mcg] Vortioxetine Hydrobromide 20 mg PO HS 02/09/23 02/09/23 [Trintellix] buPROPion SR [Wellbutrin SR] 150 mg PO BID 02/09/23 02/09/23 Previous Rx's Medication Instructions Recorded Metoprolol Tartrate [Lopressor] 50 mg PO BID #60 tab 02/11/23 Allergies Allergy/AdvReac Type Severity Reaction Status Date / Time No Known Allergies Allergy Verified 02/09/23 07:23 Review of Systems ROS Statement: Those systems with pertinent positive or pertinent negative responses have been documented in the HPI. ROS Other: All systems not noted in ROS Statement are negative. Past Medical History Past Medical History: Diabetes Mellitus, GERD/Reflux, Hyperlipidemia Additional Past Medical History / Comment(s): diverticulitis, sinus issues History of Any Multi-Drug Resistant Organisms: None Reported Past Surgical History: Ear Surgery, Orthopedic Surgery, Tonsillectomy, Tubal Ligation, Uterine Ablation Additional Past Surgical History / Comment(s): L knee-ARTHROSCOPIC Past Anesthesia/Blood Transfusion Reactions: No Reported Reaction Past Psychological History: Anxiety, Depression Smoking Status: Former smoker, Vaper Past Alcohol Use History: Rare Past Drug Use History: Marijuana - Past Family History Mother Family Medical History: Diabetes Mellitus, Hyperlipidemia, Hypertension Father Family Medical History: Hypertension General Exam Limitations: no limitations General appearance: anxious, in distress Head exam: Present: atraumatic, normocephalic, normal inspection Eye exam: Present: normal appearance, PERRL, EOMI. Absent: scleral icterus, conjunctival injection, periorbital swelling ENT exam: Present: normal exam, mucous membranes moist Neck exam: Present: normal inspection. Absent: tenderness, meningismus, lymphadenopathy Respiratory exam: Present: normal lung sounds bilaterally. Absent: respiratory distress, wheezes, rales, rhonchi, stridor Cardiovascular Exam: Present: tachycardia, normal heart sounds. Absent: systolic murmur, diastolic murmur, rubs, gallop, clicks GI/Abdominal exam: Present: soft, normal bowel sounds. Absent: distended, tenderness, guarding, rebound, rigid Extremities exam: Present: normal inspection, full ROM, normal capillary refill. Absent: tenderness, pedal edema, joint swelling, calf tenderness Back exam: Present: normal inspection Neurological exam: Present: alert, oriented X3, CN II-XII intact Psychiatric exam: Present: normal affect, normal mood Skin exam: Present: warm, dry, intact, normal color. Absent: rash Course Vital Signs 02/09/23 02/09/23 02/09/23 05:09 05:19 05:29 Temperature 98 F Pulse Rate 214 H 200 H 101 H Pulse Rate [ Pulse Oximetery ] Respiratory 20 28 H 20 Rate Blood Pressure 108/92 88/28 Blood Pressure [Right Arm] O2 Sat by Pulse 99 100 Oximetry 02/09/23 02/09/23 02/09/23 05:40 05:50 06:00 Temperature Pulse Rate 98 93 101 H Pulse Rate [ Pulse Oximetery ] Respiratory 20 18 16 Rate Blood Pressure 102/28 99/48 107/62 Blood Pressure [Right Arm] O2 Sat by Pulse 100 100 99 Oximetry 02/09/23 02/09/23 02/09/23 06:10 06:16 07:15 Temperature 97.6 F Pulse Rate 97 95 96 Pulse Rate [ Pulse Oximetery ] Respiratory 18 20 18 Rate Blood Pressure 112/71 119/76 127/68 Blood Pressure [Right Arm] O2 Sat by Pulse 100 98 100 Oximetry 02/09/23 02/09/23 02/09/23 10:00 10:30 11:00 Temperature Pulse Rate 87 168 H Pulse Rate [ Pulse Oximetery ] Respiratory 24 8 L Rate Blood Pressure 118/69 103/71 109/72 Blood Pressure [Right Arm] O2 Sat by Pulse Oximetry 02/09/23 02/09/23 02/09/23 12:52 13:00 16:00 Temperature 98.0 F 97.4 F L Pulse Rate 82 86 Pulse Rate [ 85 Pulse Oximetery ] Respiratory 17 15 16 Rate Blood Pressure 104/62 104/62 Blood Pressure 107/54 [Right Arm] O2 Sat by Pulse 96 95 Oximetry - Reevaluation(s) Reevaluation #1: Medical records reviewed Reevaluation #2: Patient symptoms are improved after cardioversion Reevaluation #3: Patient informed of results questions answered Reevaluation #4: 02/09/23 05:35 Was pt. sent in by a medical professional or institution? @ -no Did you speak to anyone other than the patient for history? @ -no Did you review nursing and triage notes? @ -agree Were old charts reviewed? @ -yes Differential Diagnosis? @ -prior EKG interpreted by me (3pts min.)? @ -yes X-rays interpreted by me (1pt min.)? @ -no CT interpreted by me (1pt min.)? @ -no U/S interpreted by me (1pt. min.)? @ -no What testing was considered but not performed? (CT, X-rays, U/S, labs)? Why? @ -no What meds were considered but not given? Why? @ -no Did you discuss the management of the patient with other professionals? @ -no Did you reconcile home meds? @ -no Was smoking cessation discussed for >3mins.? @ -no Was critical care preformed (if so, how long)? @ -yes31 Were there social determinants of health that impacted care today? How? (Homelessness, low income, unemployed, alcoholism, drug addiction, t ransportation, low edu. Level, literacy, decrease access to med. care, long term, rehab)? @ -no Was there de-escalation of care discussed even if they declined? (Discuss DNR or withdrawal of care, Hospice)? @ -no What co-morbidities impacted this encounter? (DM, HTN, Smoking, COPD, CAD, Cancer, CVA, Hep., AIDS, mental health diagnosis, sleep apnea, morbid obesity)? @ -none Was patient admitted / discharged? @ -37 female supraventricular tachycardia cardioverted here in the emergency department. Patient will be admitted for multiple lytic and persistent tachycardia Admitted Undiagnosed new problem with uncertain prognosis? @ -no Drug Therapy requiring intensive monitoring for toxicity (Heparin, Nitro, Insulin, Cardizem)? @ -no Were any procedures done? @ -no Diagnosis/symptom? @ -Supraventricular tachycardia Acute, or Chronic, or Acute on Chronic? @ -acute Uncomplicated (without systemic symptoms) or Complicated (systemic symptoms)? @ -complicated Side effects of treatment? @ -no Exacerbation, Progression, or Severe Exacerbation] @ -no Poses a threat to life or bodily function? @ -yes with arrhythmia in SVT - Consultations Consultation #1: Spoke with admitting physician Dr. Kuhn will admit this patient EKG Findings - EKG Comments: EKG Findings:: EKG is SVT 196 QRS 90 QTC 327 - EKG Results: EKG: interpreted by ERMD EKG shows: tachycardia (SVT) Medical Decision Making - Medical Decision Making 37 female supraventricular tachycardia cardioverted here in the emergency department. Patient will be admitted for multiple lytic and persistent t achycardia - Lab Data Result diagrams: 02/09/23 05:30 02/11/23 04:30 Lab Results 02/09/23 02/09/23 02/09/23 Range/Units 05:30 05:30 05:30 WBC 10.1 (3.8-10.6) k/uL RBC 4.65 (3.80-5.40) m/uL Hgb 15.2 (11.4-16.0) gm/dL Hct 45.7 (34.0-46.0) % MCV 98.2 (80.0-100.0) fL MCH 32.7 (25.0-35.0) pg MCHC 33.3 (31.0-37.0) g/dL RDW 12.5 (11.5-15.5) % Plt Count 349 (150-450) k/uL MPV 7.7 Neutrophils % 62 % Lymphocytes % 29 % Monocytes % 5 % Eosinophils % 2 % Basophils % 1 % Neutrophils # 6.3 (1.3-7.7) k/uL Lymphocytes # 2.9 (1.0-4.8) k/uL Monocytes # 0.5 (0-1.0) k/uL Eosinophils # 0.2 (0-0.7) k/uL Basophils # 0.1 (0-0.2) k/uL PT 9.5 (9.0-12.0) sec INR 0.9 (<1.2) APTT 23.2 (22.0-30.0) sec D-Dimer 0.37 (<0.60) mg/L FEU Sodium 135 L (137-145) mmol/L Potassium 4.0 (3.5-5.1) mmol/L Chloride 105 (98-107) mmol/L Carbon Dioxide 18 L (22-30) mmol/L Anion Gap 12 mmol/L BUN 20 H (7-17) mg/dL Creatinine 0.56 (0.52-1.04) mg/dL Est GFR (CKD-EPI)AfAm >90 (>60 ml/min/1.73 sqM) Est GFR (CKD-EPI)NonAf >90 (>60 ml/min/1.73 sqM) Glucose 282 H (74-99) mg/dL Calcium 9.2 (8.4-10.2) mg/dL Magnesium 1.7 (1.6-2.3) mg/dL Total Bilirubin 0.5 (0.2-1.3) mg/dL AST 23 (14-36) U/L ALT 29 (4-34) U/L Alkaline Phosphatase 106 (38-126) U/L Troponin I (0.000-0.034) ng/mL Total Protein 7.3 (6.3-8.2) g/dL Albumin 4.2 (3.5-5.0) g/dL TSH 3.430 (0.465-4.680) mIU/L 02/09/23 Range/Units 05:30 WBC (3.8-10.6) k/uL RBC (3.80-5.40) m/uL Hgb (11.4-16.0) gm/dL Hct (34.0-46.0) % MCV (80.0-100.0) fL MCH (25.0-35.0) pg MCHC (31.0-37.0) g/dL RDW (11.5-15.5) % Plt Count (150-450) k/uL MPV Neutrophils % % Lymphocytes % % Monocytes % % Eosinophils % % Basophils % % Neutrophils # (1.3-7.7) k/uL Lymphocytes # (1.0-4.8) k/uL Monocytes # (0-1.0) k/uL Eosinophils # (0-0.7) k/uL Basophils # (0-0.2) k/uL PT (9.0-12.0) sec INR (<1.2) APTT (22.0-30.0) sec D-Dimer (<0.60) mg/L FEU Sodium (137-145) mmol/L Potassium (3.5-5.1) mmol/L Chloride (98-107) mmol/L Carbon Dioxide (22-30) mmol/L Anion Gap mmol/L BUN (7-17) mg/dL Creatinine (0.52-1.04) mg/dL Est GFR (CKD-EPI)AfAm (>60 ml/min/1.73 sqM) Est GFR (CKD-EPI)NonAf (>60 ml/min/1.73 sqM) Glucose (74-99) mg/dL Calcium (8.4-10.2) mg/dL Magnesium (1.6-2.3) mg/dL Total Bilirubin (0.2-1.3) mg/dL AST (14-36) U/L ALT (4-34) U/L Alkaline Phosphatase (38-126) U/L Troponin I 0.046 H* (0.000-0.034) ng/mL Total Protein (6.3-8.2) g/dL Albumin (3.5-5.0) g/dL TSH (0.465-4.680) mIU/L - EKG Data -: EKG Interpreted by Me (Repeat EKG sinus 96 MS 131 QRS 90 QTC 388) EKG shows normal: sinus rhythm Critical Care Time Critical Care Time: Yes Total Critical Care Time: 31 Disposition Clinical Impression: Palpitations, Tachycardia, Supraventricular tachycardia, Near syncope, Nausea and vomiting Disposition: ADMITTED IP TO THIS HOSP Condition: Serious Is patient prescribed a controlled substance at d/c from ED?: No Time of Disposition: 06:45
[2023-02-09 05:37] LABS: Basophils # (A) 0.1 k/uL (0-0.2); Basophils % (A) 1 %; Eosinophils # (A) 0.2 k/uL (0-0.7); Eosinophils % (A) 2 %; HCT 45.7 % (34.0-46.0); HGB 15.2 gm/dL (11.4-16.0); Lymphocytes # (A) 2.9 k/uL (1.0-4.8); Lymphocytes % (A) 29 %; MCH 32.7 pg (25.0-35.0); MCHC 33.3 g/dL (31.0-37.0); MCV 98.2 fL (80.0-100.0); Mean Platelet Volume 7.7; Monocytes # (A) 0.5 k/uL (0-1.0); Monocytes % (A) 5 %; Neutrophils # (A) 6.3 k/uL (1.3-7.7); Neutrophils % (A) 62 %; Platelet Count 349 k/uL (150-450); RBC 4.65 m/uL (3.80-5.40); RDW 12.5 % (11.5-15.5); WBC 10.1 k/uL (3.8-10.6)
[2023-02-09 05:46] LABS: ALT 29 U/L (4-34); AST 23 U/L (14-36); African American GFR (CKD) >90 (>60 ml/min/1.73 sqM); Albumin 4.2 g/dL (3.5-5.0); Alkaline Phosphatase 106 U/L (38-126); Anion Gap 12 mmol/L; Blood Urea Nitrogen 20 mg/dL (7-17); Calcium 9.2 mg/dL (8.4-10.2); Carbon Dioxide 18 mmol/L (22-30); Chloride 105 mmol/L (98-107); Glucose 282 mg/dL (74-99); Magnesium 1.7 mg/dL (1.6-2.3); Non-African American GFR(CKD) >90 (>60 ml/min/1.73 sqM); Sodium 135 mmol/L (137-145); Total Bilirubin 0.5 mg/dL (0.2-1.3); Total Protein 7.3 g/dL (6.3-8.2)
[2023-02-09] MEDS ORDERED: LORazepam 2 MG/ML INJ IV STA (05:47)
[2023-02-09 06:00] LABS: INR 0.9 (<1.2); Partial Thromboplastin Time 23.2 sec (22.0-30.0); Prothrombin Time 9.5 sec (9.0-12.0)
[2023-02-09] MEDS ORDERED: ONDANSETRON 4 MG/2 ML VIAL IVP PRN (06:42)
[2023-02-09] MEDS ORDERED: NALOXONE 0.4 MG/ML 1 ML VIAL IV PRN (06:42)
[2023-02-09] MEDS: SODIUM CHLORIDE 0.9% 1,000 ML IV SCH ×2 (06:50→14:37)
[2023-02-09] MEDS ORDERED: DEXTROSE 50% SYRINGE 50 ML IVP PRN ×2 (08:23)
[2023-02-09 08:39] LABS: Glucose,Whole Blood 175 mg/dL (70-110)
[2023-02-09] MEDS: buPROPion SR 150 MG TABLET.ER PO SCH ×2 (08:58→20:21)
[2023-02-09] MEDS: METOPROLOL TARTRATE 25 MG TAB PO SCH (08:59)
[2023-02-09] MEDS ORDERED: Magnesium Replacement Protocol 1 EACH MISC MISCELLANE PRN (09:04)
[2023-02-09] MEDS: MORPHINE SULFATE 4 MG/ML SYRINGE IV PRN ×3 (09:04→22:35)
--- NOTE | 2023-02-09 09:41 | CONS ---
CONSULTATION CHIEF COMPLAINT: Sustained palpitation. HISTORY OF PRESENT ILLNESS: Josephine is a 37-year-old lady with history of [id number] diabetes who presented to hospital complaining of sustained palpitations. She had 2 episodes of sustained palpitations after returning home from work yesterday afternoon. The first episode happened while she was taking shower, it was sudden onset sustained palpitations, felt somewhat diaphoretic and it gradually went away on its own and had a second episode that also resolved spontaneously. Last night she woke up from sleep all of a sudden with sustained palpitations. She was concerned about it and came to the hospital. She was found to be in SVT with a heart rate of 196 beats per minute, received adenosine following which she converted to sinus rhythm. At the time of my evaluation this morning, patient is in normal sinus rhythm and is free of cardiac symptoms. I spoke to the patient at length about her condition, short and long-term prognosis and treatment options. I am going to start her on Toprol-XL 25 mg daily and obtain a 2D echo. Discharge her home and arrange outpatient followup with me. I talked to her about EP evaluation and ablation. She is going to give it a thought and we will have further discussions on followup. PAST MEDICAL HISTORY: Significant for [id number] diabetes. CURRENT MEDICATIONS: Include: 1. Actos. 2. Glucophage. 3. Wellbutrin. 4. Farxiga. 5. Spiriva. 6. Neurontin. ALLERGIES: There are no known drug allergies. FAMILY HISTORY: Significant for SVT in a grandmother. SOCIAL HISTORY: Negative for smoking, EtOH abuse or drug abuse. REVIEW OF SYSTEMS: 14 out of 14 review of systems has been performed and pertinents are as documented. PHYSICAL EXAMINATION: GENERAL: Comfortable at rest. VITAL SIGNS: Stable. NECK: There is jugular venous distention. Carotid upstroke is normal. There is no bruit. CHEST: Reveals good air entry bilaterally. HEART: Reveals first and second heart sounds. No gallop. No murmur. No rub. ABDOMEN: Soft, nontender. EXTREMITIES: Did not reveal any edema. Peripheral pulses are felt. LABORATORY DATA: Labs show a hemoglobin of 15.2, platelet count is 349, potassium is 4, creatinine is 0.5. Her troponin was elevated at 0.046, probably related to tachycardia. TSH is normal at 3.4. ASSESSMENT: 1. Paroxysmal SVT. 2. Elevated troponin, probably related to supply demand mismatch related to SVT with a heart rate of 190 beats per minute. PLAN: I will start the patient on Toprol. Obtain a 2D echo to assess LV function and wall motion. If these are normal, she can be discharged home and arrange outpatient followup through my office. STARLA / EHSAN: [id number] /
--- NOTE | 2023-02-09 11:23 | CA ---
Transthoracic Echo Report Name: Josephine Juarez Age: 37 Gender: F : 1985 Exam Date: 02/09/2023 09:47 Exam Location: [facility] Ht (in): 63 Wt (lb): 230 Ordering Physician: Marycarmen Reagan MD ([id number]) Attending/Referring Phys: Cleaner And Dyer Karina Muller RDCS Procedure CPT: Indications: svt Cardiac Hx: Technical Quality: Good Contrast 1: Total Dose (mL): Contrast 2: Total Dose (mL): MEASUREMENTS (Male / Female) Normal Values 2D ECHO LV Diastolic Diameter PLAX 4.1 cm 4.2 - 5.9 / 3.9 - 5.3 cm LV Systolic Diameter PLAX 2.8 cm IVS Diastolic Thickness 1.2 cm 0.6 - 1.0 / 0.6 - 0.9 cm LVPW Diastolic Thickness 1.1 cm 0.6 - 1.0 / 0.6 - 0.9 cm LV Relative Wall Thickness 0.6 RV Internal Dim ED PLAX 3.0 cm LA Systolic Diameter LX 3.7 cm 3.0 - 4.0 / 2.7 - 3.8 cm LV Diastolic Volume MOD 4C 106.6 cm??? LV Systolic Volume MOD 4C 55.0 cm??? LV Ejection Fraction MOD 4C 48.4 % LV Cardiac Index MOD 4C 2033.5 cm???/min???m??? LV Diastolic Length 4C 9.0 cm LV Systolic Length 4C 7.3 cm LV Diastolic Volume MOD 2C 82.3 cm??? LV Systolic Volume MOD 2C 30.7 cm??? LV Ejection Fraction MOD 2C 62.7 % LV Cardiac Index MOD 2C 2033.8 cm???/min???m??? LV Diastolic Length 2C 8.5 cm LV Systolic Length 2C 6.4 cm LA Volume 41.4 cm??? 18 - 58 / 22 - 52 cm??? M-MODE Aortic Root Diameter MM 2.9 cm MV E Point Septal Separation 0.4 cm AV Cusp Separation MM 2.1 cm DOPPLER AV Peak Velocity 133.6 cm/s AV Peak Gradient 7.1 mmHg MV Area PHT 4.5 cm??? Mitral E Point Velocity 118.7 cm/s Mitral A Point Velocity 63.9 cm/s Mitral E to A Ratio 1.9 MV Deceleration Time 169.4 ms MV E' Velocity 14.5 cm/s Mitral E to MV E' Ratio 8.2 FINDINGS Left Ventricle Left ventricular ejection fraction is estimated at 55-60 %. Left ventricular cavity size normal. Mildly increased septal wall thickness. Mildly increased posterior wall thickness. Right Ventricle Normal right ventricular size and function. Unable to estimate the right ventricular systolic pressure. Right Atrium Normal right atrial size. Left Atrium Normal left atrial size. Mitral Valve Structurally normal mitral valve. No mitral stenosis, regurgitation or prolapse. Aortic Valve Trileaflet aortic valve. No aortic valve stenosis or regurgitation. Tricuspid Valve Structurally normal tricuspid valve. Trace to mild tricuspid regurgitation. Pulmonic Valve Structurally normal pulmonic valve. Pericardium Normal pericardium. No pericardial effusion. Aorta Normal size aortic root and proximal ascending aorta. CONCLUSIONS Normal LV size and systolic function. Mild concentric LVH. No significant abnormality on the Doppler exam. No pericardial effusion Previewed by: Dr. Elizabeth Brown MD (Electronically Signed) Final Date: 09 February 2023 11:22
[2023-02-09 12:10] LABS: Glucose,Whole Blood 217 mg/dL (70-110)
[2023-02-09] MEDS: INSULIN ASPART (NovoLOG) 100 UNIT/ML VIAL SQ SCH ×3 (12:48→22:46)
[2023-02-09 13:26] LABS: Appearance,Urine Clear (Clear); Bilirubin,Urine Negative (Negative); Blood,Urine Negative (Negative); Color,Urine Light Yellow; Glucose,Urine (UA) 4+ (Negative); Ketones,Urine Trace (Negative); Leukocyte Esterase,Urine Negative (Negative); Nitrite,Urine Negative (Negative); PH, Urine 5.5 (5.0-8.0); Protein,Urine Negative (Negative); Specific Gravity,Urine 1.042 (1.001-1.035); Urobilinogen,Urine <2.0 mg/dL (<2.0)
[2023-02-09 13:38] LABS: Amphetamine Screen,Urine Not Detected (NotDetected); Barbiturate Screen,Urine Not Detected (NotDetected); Benzodiazepines Screen,Urine Not Detected (NotDetected); Cocaine Screen,Urine Not Detected (NotDetected); Methadone Screen, Urine Not Detected (NotDetected); Opiate Screen,Urine Not Detected (NotDetected); Oxycodone Screen, Urine Not Detected (NotDetected); Phencyclidine Screen,Urine Not Detected (NotDetected); Tricyclic Antidepressant,Urine Not Detected (NotDetected); Urn Cannabinoid Scrn Detected (NotDetected)
--- NOTE | 2023-02-09 14:34 | P.HPIM ---
History of Present Illness H&P Date: 02/09/23 Chief Complaint: palpitations, diaphoresis, shortness of breath This is a 37-year-old female with past medical history significant for morbid obesity, diabetes mellitus, hypertension, gastric esophageal reflux disease, former nicotine dependence, currently vaper, occasional marijuana use and multiple other medical issues presented to the ER with palpitations, shortness of breath, diaphoresis. Reports yesterday after work while in the shower became dizzy, lightheaded with palpitations that lasted approximately 4 hours and resolved. Early this morning around 4:30 AM awakened by her reoccurrence palpitations or worsening accompanied by shortness of breath, nausea and diaphoresis and proceeded to the ER. Denies any leg edema, sickness, cough, congestion, chills. Reports last occurrence approximately 5 years ago when she was diagnosed with anxiety. Immediate family history of CAD, unsure of; reports her grandmother has an irregular heartbeat, her grandfather had an OH in his 30s as well as her uncle. Troponin 0.046, 0.038. EKG on admission reported SVT, heart rate 196. sinus, received adenosine, converted to sinus rhythm. minimal shortness of breath with lung sounds clear, maintaining O2 sats of 100% on 2 L nasal cannula. Electrolytes within normal limits, BUN 20, creatinine 2.6, magnesium 1.7. UA negative. Toxicology screen detected marijuana, "H". Cardiology consult in place. Review of Systems ROS Statement: Those systems with pertinent positive or pertinent negative responses have been documented in the HPI. ROS Other: All systems not noted in ROS Statement are negative. Past Medical History Past Medical History: Diabetes Mellitus, GERD/Reflux, Hyperlipidemia Additional Past Medical History / Comment(s): diverticulitis, sinus issues History of Any Multi-Drug Resistant Organisms: None Reported Past Surgical History: Ear Surgery, Orthopedic Surgery, Tonsillectomy, Tubal Ligation, Uterine Ablation Additional Past Surgical History / Comment(s): L knee-ARTHROSCOPIC Past Anesthesia/Blood Transfusion Reactions: No Reported Reaction Past Psychological History: Anxiety, Depression Smoking Status: Former smoker, Vaper Past Alcohol Use History: Rare Past Drug Use History: Marijuana - Past Family History Mother Family Medical History: Diabetes Mellitus, Hyperlipidemia, Hypertension Father Family Medical History: Hypertension Medications and Allergies Home Medications Medication Instructions Recorded Confirmed Type metFORMIN HCL [Glucophage] 1,000 mg PO BID 08/25/17 02/09/23 History Dapagliflozin Propanediol [Farxiga] 10 mg PO DAILY 07/31/19 02/09/23 History Pioglitazone [Actos] 45 mg PO DAILY 07/03/21 02/09/23 History Gabapentin [Neurontin] 200 mg PO HS 02/09/23 02/09/23 History Semaglutide [Rybelsus] 14 mg PO DAILY 02/09/23 02/09/23 History Tiotropium 2.5 Mcg/Puff [Spiriva 2 puff INHALATION RT-DAILY 02/09/23 02/09/23 History Respimat 2.5 Mcg] Vortioxetine Hydrobromide 20 mg PO HS 02/09/23 02/09/23 History [Trintellix] buPROPion SR [Wellbutrin SR] 150 mg PO BID 02/09/23 02/09/23 History Allergies Allergy/AdvReac Type Severity Reaction Status Date / Time No Known Allergies Allergy Verified 02/09/23 07:23 Physical Exam Vitals: Vital Signs Temp Pulse Resp BP Pulse Ox 02/09/23 07:15 97.6 F 96 18 127/68 100 02/09/23 06:16 95 20 119/76 98 02/09/23 06:10 97 18 112/71 100 02/09/23 06:00 101 H 16 107/62 99 02/09/23 05:50 93 18 99/48 100 02/09/23 05:40 98 20 102/28 100 02/09/23 05:29 101 H 20 88/28 100 02/09/23 05:19 200 H 28 H 108/92 02/09/23 05:09 98 F 214 H 20 99 Intake and Output 02/08/23 02/09/23 02/09/23 22:59 06:59 14:59 Other: Weight 104.326 kg PHYSICAL EXAM: VITAL SIGNS: [As above] GENERAL: Sitting up on stretcher, in no acute distress HEENT: Normocephalic Conjunctivae normal. eyes normal. NECK: Supple, No JVD. No thyroid enlargement. No LNs CARDIOVASCULAR: S1, S2 regular.No murmur RESPIRATION: Unlabored, Breath sounds diminished in the bases. No rhonchi or crackles. No bronchial breathing. ABDOMEN: Soft, nontender . No guarding. no masses palpable. No appreciable organomegaly,+BS. LEGS: No edema. no swelling PSYCHIATRY: Alert and oriented X3, mood and affect normal. NERVOUS SYSTEM: Cranial N 2-12 grossly normal. No focal deficits. Strength and sensation grossly intact.. Skin: Warm and dry , no rash Results CBC & Chem 7: 02/09/23 05:30 02/09/23 05:30 Labs: Abnormal Lab Results - Last 24 Hours (Table) 02/09/23 02/09/23 02/09/23 Range/Units 05:30 05:30 08:37 Sodium 135 L (137-145) mmol/L Carbon Dioxide 18 L (22-30) mmol/L BUN 20 H (7-17) mg/dL Glucose 282 H (74-99) mg/dL POC Glucose (mg/dL) 175 H (70-110) mg/dL Troponin I 0.046 H* (0.000-0.034) ng/mL Assessment and Plan Assessment: SVT, proximal Elevated troponin, secondary to the above Diabetes mellitus type 2 Hypertension Current Vaper use, occasional marijuana use, former nicotine dependence Morbid obesity, BMI 40.7 Plan: Continue on current medication regime ,monitoring and symptomatic treatment. Evaluated by cardiology, beta racheal initiated, 2-D echo pending with orders to initiate discharge pending echo results. Prior to discharge patient returned into SVT. Discharge canceled. The impression and plan of care has been dictated as directed. : I performed a history and examination of this patient, discussed the same with the dictator. I agree with the dictator's note ,documented as a scribe. Any additional findings or plans will be noted.
[2023-02-09 17:25] LABS: Glucose,Whole Blood 165 mg/dL (70-110)
[2023-02-09] MEDS: DILTIAZEM 125 MG in SODIUM CHLORIDE 0.9% 100 ML IV SCH (20:21)
[2023-02-09] MEDS: VORTIOXETINE HYDROBROMIDE 20 MG TABLET PO SCH (20:21)
[2023-02-09] MEDS: GABAPENTIN 100 MG CAP PO SCH (20:21)
[2023-02-09 20:52] LABS: Glucose,Whole Blood 177 mg/dL (70-110)
[2023-02-09] MEDS ORDERED: MAGNESIUM SULFATE-D5W PMX 1 GM in DEXTROSE/WATER 1 100ML.BAG IVPB ONE (21:55)
[2023-02-09] MEDS: ACETAMINOPHEN TAB 325 MG TAB PO PRN (22:36)
[2023-02-10] MEDS: SODIUM CHLORIDE 0.9% 1,000 ML IV SCH ×4 (03:02→20:43)
[2023-02-10] MEDS: ACETAMINOPHEN TAB 325 MG TAB PO PRN ×3 (04:57→20:35)
[2023-02-10 05:54] LABS: Glucose,Whole Blood 155 mg/dL (70-110)
[2023-02-10] MEDS: INSULIN ASPART (NovoLOG) 100 UNIT/ML VIAL SQ SCH ×4 (06:48→20:34)
[2023-02-10] MEDS: METOPROLOL TARTRATE 25 MG TAB PO SCH (08:41)
[2023-02-10] MEDS: buPROPion SR 150 MG TABLET.ER PO SCH ×2 (08:42→20:34)
[2023-02-10 09:02] LABS: African American GFR (CKD) >90 (>60 ml/min/1.73 sqM); Anion Gap 8 mmol/L; Blood Urea Nitrogen 14 mg/dL (7-17); Calcium 7.9 mg/dL (8.4-10.2); Carbon Dioxide 22 mmol/L (22-30); Chloride 103 mmol/L (98-107); Glucose 249 mg/dL (74-99); Magnesium 1.8 mg/dL (1.6-2.3); Non-African American GFR(CKD) >90 (>60 ml/min/1.73 sqM); Potassium 4.4 mmol/L (3.5-5.1); Sodium 133 mmol/L (137-145)
[2023-02-10] MEDS ORDERED: ADENOSINE 3 MG/ML 2 ML VIAL IVP STA ×2 (09:02)
[2023-02-10] MEDS ORDERED: ADENOSINE 3 MG/ML 2 ML VIAL IVP ONE (09:03)
[2023-02-10] MEDS ORDERED: METOPROLOL TARTRATE 25 MG TAB PO STA (09:11)
--- NOTE | 2023-02-10 11:41 | P.PN ---
Subjective Progress Note Date: 02/10/23 H&P Date: 02/09/23 Chief Complaint: palpitations, diaphoresis, shortness of breath This is a 37-year-old female with past medical history significant for morbid obesity, diabetes mellitus, hypertension, gastric esophageal reflux disease, former nicotine dependence, currently vaper, occasional marijuana use and multiple other medical issues presented to the ER with palpitations, shortness of breath, diaphoresis. Reports yesterday after work while in the shower became dizzy, lightheaded with palpitations that lasted approximately 4 hours and resolved. Early this morning around 4:30 AM awakened by her reoccurrence palpitations or worsening accompanied by shortness of breath, nausea and diaphoresis and proceeded to the ER. Denies any leg edema, sickness, cough, congestion, chills. Reports last occurrence approximately 5 years ago when she was diagnosed with anxiety. Immediate family history of CAD, unsure of; reports her grandmother has an irregular heartbeat, her grandfather had an AR in his 30s as well as her uncle. Troponin 0.046, 0.038. EKG on admission reported SVT, heart rate 196. sinus, received adenosine, converted to sinus rhythm. minimal shortness of breath with lung sounds clear, maintaining O2 sats of 100% on 2 L nasal cannula. Electrolytes within normal limits, BUN 20, creatinine 2.6, magnesium 1.7. UA negative. Toxicology screen detected marijuana, "H". Cardiology consult in place. 02/10/2021 Episodes of SVT throughout the night, spontaneously resolved, reported. Maintained on Cardizem drip. This morning, recurrent SVT 2 episodes. Beta racheal increased. Dr. Villa consulted. Denies headache, lightheade dness or dizziness. Denies shortness of breath. Maintaining O2 sats in the high 90s on 1.5 L nasal cannula O2. Headache last night, received magnesium and Tylenol, resolved. Informed staff last night, she consumed a lot of caffeine/coffee/pop, denies this morning. Objective - Vital Signs Vital signs: Vital Signs Temp 98.2 F 02/10/23 08:00 Pulse 80 02/10/23 08:00 Resp 16 02/10/23 08:00 BP 101/68 02/10/23 08:00 Pulse Ox 96 02/10/23 08:48 FiO2 Intake & Output 02/09/23 02/10/23 02/10/23 18:59 06:59 18:59 Intake Total 360 Balance 360 Weight 104.326 kg Intake: Oral 360 Other: Voiding Method Bedside Commode Bedside Commode # Voids 1 - Exam PHYSICAL EXAM: VITAL SIGNS: [As above] GENERAL: Alert and oriented 3 ,Sitting up in bed, in no acute distress HEENT: Normocephalic Conjunctivae normal. eyes normal. NECK: Supple, No JVD. CARDIOVASCULAR: S1, S2 regular.No murmur RESPIRATION: Unlabored, equal air entry with bilateral bases diminished. ABDOMEN: Soft, nontender . No guarding. no masses palpable. No appreciable organomegaly,+BS. LEGS: No edema. no swelling NERVOUS SYSTEM: Cranial N 2-12 grossly normal. No focal deficits. Strength and sensation grossly intact. Skin: Warm and dry , no rash - Labs CBC & Chem 7: 02/09/23 05:30 02/10/23 07:55 Labs: Abnormal Lab Results - Last 24 Hours (Table) 02/09/23 02/09/23 02/09/23 Range/Units 12:09 13:00 17:23 Sodium (137-145) mmol/L Creatinine (0.52-1.04) mg/dL Glucose (74-99) mg/dL POC Glucose (mg/dL) 217 H 165 H (70-110) mg/dL Hemoglobin A1c (<=6.0) % Calcium (8.4-10.2) mg/dL Ur Specific [place] 1.042 H (1.001-1.035) Urine Glucose (UA) 4+ H (Negative) Urine Ketones Trace H (Negative) U Marijuana (THC) Screen Detected H (NotDetected) 02/09/23 02/10/23 02/10/23 Range/Units 20:51 05:52 07:55 Sodium (137-145) mmol/L Creatinine (0.52-1.04) mg/dL Glucose (74-99) mg/dL POC Glucose (mg/dL) 177 H 155 H (70-110) mg/dL Hemoglobin A1c 7.9 H (<=6.0) % Calcium (8.4-10.2) mg/dL Ur Specific [place] (1.001-1.035) Urine Glucose (UA) (Negative) Urine Ketones (Negative) U Marijuana (THC) Screen (NotDetected) 02/10/23 Range/Units 07:55 Sodium 133 L (137-145) mmol/L Creatinine 0.50 L (0.52-1.04) mg/dL Glucose 249 H (74-99) mg/dL POC Glucose (mg/dL) (70-110) mg/dL Hemoglobin A1c (<=6.0) % Calcium 7.9 L (8.4-10.2) mg/dL Ur Specific [place] (1.001-1.035) Urine Glucose (UA) (Negative) Urine Ketones (Negative) U Marijuana (THC) Screen (NotDetected) Assessment and Plan Assessment: SVT, paroximal Elevated troponin, secondary to the above Diabetes mellitus type 2, hemoglobin A1c 7.9, further diabetic education outpa tient in clinic with PCP. Hypertension Current Vaper use, occasional marijuana use, former nicotine dependence Morbid obesity, BMI 40.7 Plan: Continue on current medication regime ,monitoring and symptomatic treatment. Recurrent SVT, on Cardizem drip and increased beta racheal. Antiarrhythmics as per cardiology. Dr. Villa consulted. The impression and plan of care has been dictated as directed. : I performed a history and examination of this patient, discussed the same with the dictator. I agree with the dictator's note ,documented as a scribe. Any additional findings or plans will be noted.
[2023-02-10 12:03] LABS: Glucose,Whole Blood 162 mg/dL (70-110)
--- NOTE | 2023-02-10 13:06 | P.PN ---
Subjective Progress Note Date: 02/10/23 HISTORY OF PRESENT ILLNESS: This is a 37-year-old female who presented to the hospital yesterday with a chief complaint of palpitations. Patient was found to be in SVT. Patient had 2 episodes of SVT in the emergency room yesterday requiring adenosine with conversion to sinus mechanism. The patient went into SVT last night and converted on her own. She was started on IV Cardizem. This morning the patient was in SVT with a heart rate in the 160s. Vagal maneuvers were attempted and patient did convert to sinus mechanism. However shortly afterwards patient went into SVT again. She was given 6 mg of adenosine with conversion to sinus mechanism. Echocardiogram completed revealing ejection fraction 55-60% with mild LVH PHYSICAL EXAM: VITAL SIGNS: Reviewed. GENERAL: Well-developed in no acute distress. NECK: Supple. No JVD or thyromegaly LUNGS: Respirations even and unlabored. Lungs essentially clear to auscultation bilaterally. HEART: Regular rate and rhythm. S1 and S2 heard. EXTREMITIES: Normal range of motion. No clubbing or cyanosis. Peripheral pulses intact. No lower extremity edema ASSESSMENT: Recurrent SVT, 1 episode converted with vagal maneuvers, 3 episodes converted with adenosine, and one episode converted spontaneously Diabetes Morbid obesity: BMI 40.7 PLAN: Decrease patient's Cardizem drip to 2.5 mg an hour Increase metoprolol to 50 mg daily Case discussed with Dr. Villa who will evaluate patient Further recommendations pending patient's course Nurse practitioner note has been reviewed by physician. Signing provider agrees with the documented findings, assessment, and plan of care. Objective - Vital Signs Vital signs: Vital Signs Temp 98.0 F 02/10/23 11:44 Pulse 78 02/10/23 11:44 Resp 15 02/10/23 11:44 BP 100/66 02/10/23 11:44 Pulse Ox 96 02/10/23 11:44 FiO2 Intake & Output 02/09/23 02/10/23 02/10/23 18:59 06:59 18:59 Intake Total 360 Balance 360 Weight 104.326 kg Intake: Oral 360 Other: Voiding Method Bedside Commode Bedside Commode # Voids 1 - Labs CBC & Chem 7: 02/09/23 05:30 02/10/23 07:55 Labs: Abnormal Lab Results - Last 24 Hours (Table) 02/09/23 02/09/23 02/09/23 Range/Units 13:00 17:23 20:51 Sodium (137-145) mmol/L Creatinine (0.52-1.04) mg/dL Glucose (74-99) mg/dL POC Glucose (mg/dL) 165 H 177 H (70-110) mg/dL Hemoglobin A1c (<=6.0) % Calcium (8.4-10.2) mg/dL Ur Specific [place] 1.042 H (1.001-1.035) Urine Glucose (UA) 4+ H (Negative) Urine Ketones Trace H (Negative) U Marijuana (THC) Screen Detected H (NotDetected) 02/10/23 02/10/23 02/10/23 Range/Units 05:52 07:55 07:55 Sodium 133 L (137-145) mmol/L Creatinine 0.50 L (0.52-1.04) mg/dL Glucose 249 H (74-99) mg/dL POC Glucose (mg/dL) 155 H (70-110) mg/dL Hemoglobin A1c 7.9 H (<=6.0) % Calcium 7.9 L (8.4-10.2) mg/dL Ur Specific [place] (1.001-1.035) Urine Glucose (UA) (Negative) Urine Ketones (Negative) U Marijuana (THC) Screen (NotDetected) 02/10/23 Range/Units 12:02 Sodium (137-145) mmol/L Creatinine (0.52-1.04) mg/dL Glucose (74-99) mg/dL POC Glucose (mg/dL) 162 H (70-110) mg/dL Hemoglobin A1c (<=6.0) % Calcium (8.4-10.2) mg/dL Ur Specific [place] (1.001-1.035) Urine Glucose (UA) (Negative) Urine Ketones (Negative) U Marijuana (THC) Screen (NotDetected)
[2023-02-10] MEDS ORDERED: IPRATROPIUM-ALBUTEROL 3 ML NEB INHALATION PRN (14:56)
[2023-02-10] MEDS ORDERED: MAGNESIUM SULFATE-D5W PMX 1 GM in DEXTROSE/WATER 1 100ML.BAG IVPB ONE (14:59)
[2023-02-10] MEDS ORDERED: ACETAMINOPHEN IV (For NPO) 1,000 MG in EMPTY BAG 1 BAG IVPB STA (14:59)
[2023-02-10] MEDS: MORPHINE SULFATE 4 MG/ML SYRINGE IV PRN (15:02)
[2023-02-10] MEDS: METOPROLOL TARTRATE 50 MG TAB PO SCH (15:29)
--- NOTE | 2023-02-10 15:55 | P.EPCON ---
Electrophysiology Consult - EP Consult Electrophysiology Consult: This is Dr. Villa dictating an EP consult on this patient The patient was interviewed and examined IMPRESSION / ASSESSMENT: Recurrent SVT despite IV Cardizem, symptomatic with presyncope chest discomfort and palpitations At least 3 sustained episodes, adenosine sensitive Likely AV node reentry, no clear-cut P waves Adenosine resulted in an antegrade pathway block PLAN: Metoprolol 50 mrem twice daily, tartrate Tapering off Cardizem over the next 12 hours Ambulate in the hallways and allow her to walk around on metoprolol 50 twice a day I discussed her options of medical treatment versus EP study and ablation I would recommend an EP study and ablation She understands that she will hold metoprolol for 3 days prior to the procedure Success rates risks and benefits were discussed Success rates of 97-99% long-term, complication of less than 1% chance of cardiac puncture, conduction system injury requiring permanent pacemaker Patient is agreeable to plan. She would like to proceed with an EP study ablation HPI on Tuesday patient was taking a shower when she started expensive chest discomfort and a very rapid heartbeat. She felt dizzy and lightheaded and has some discomfort in the chest. The symptoms went away in about 2-3 hours The next morning she was woken up with a rapid heartbeat and discomfort of the chest she came to the hospital, complaining that she felt his usual. Maneuvers 20 showed SVT at 196 beats a minute no clear-cut P waves Hawk maneuvers were attempted. EKG is sinus rhythm shows normal [place] narrow QRS normal ST segments no delta waves She was placed on IV Cardizem and started on oral metoprolol This morning she had SVT once again and was treated with IV adenosine with abrupt termination Possible block in the antegrade pathway with IV adenosine She is currently on IV Cardizem and metoprolol tartrate 50 mg once daily Past nurse to give a second dose of metoprolol 50mg and make and 50 twice a day She has a history of obesity and diabetes No cardiac complaints no other medical problems ROS: No fever chills or rigors, no cough, phlegm or expectoration, no nausea, vomiting or diarrhea, no hematuria, dysuria, no musculoskeletal complaints, no strokes or seizures, no skin lesions. EXAMINATION: On examination blood pressure 100 normal 60 mmHg temperature afebrile 98.2F pulse rate in the 80s on IV Cardizem Breath sounds are clear no rhonchi no crackles Heart sounds are normal REVIEW OF LABS, ECG & MEDICAL DATA Normal hemoglobin of 15, normal white count, normal platelet count Normal electrolytes Normal renal function TSH normal Normal troponins Hemoglobin A1c 7.9
[2023-02-10 16:54] LABS: Glucose,Whole Blood 141 mg/dL (70-110)
[2023-02-10] MEDS ORDERED: LORazepam 0.5 MG TAB PO PRN (20:11)
[2023-02-10 20:23] LABS: Glucose,Whole Blood 196 mg/dL (70-110)
[2023-02-10] MEDS: VORTIOXETINE HYDROBROMIDE 20 MG TABLET PO SCH (20:34)
[2023-02-10] MEDS: GABAPENTIN 100 MG CAP PO SCH (20:35)
[2023-02-10] MEDS: DILTIAZEM 125 MG in SODIUM CHLORIDE 0.9% 100 ML IV SCH (20:41)
[2023-02-10] MEDS ORDERED: MELATONIN 5 MG TABLET PO SCH (21:00)
[2023-02-11 04:56] LABS: African American GFR (CKD) >90 (>60 ml/min/1.73 sqM); Anion Gap 5 mmol/L; Blood Urea Nitrogen 15 mg/dL (7-17); Calcium 8.1 mg/dL (8.4-10.2); Carbon Dioxide 25 mmol/L (22-30); Chloride 105 mmol/L (98-107); Glucose 149 mg/dL (74-99); Magnesium 1.9 mg/dL (1.6-2.3); Non-African American GFR(CKD) >90 (>60 ml/min/1.73 sqM); Potassium 4.2 mmol/L (3.5-5.1); Sodium 135 mmol/L (137-145)
[2023-02-11] MEDS: SODIUM CHLORIDE 0.9% 1,000 ML IV SCH ×2 (05:02→08:32)
[2023-02-11] MEDS: INSULIN ASPART (NovoLOG) 100 UNIT/ML VIAL SQ SCH ×3 (05:02→11:41)
[2023-02-11 06:03] LABS: Glucose,Whole Blood 210 mg/dL (70-110)
[2023-02-11] MEDS ORDERED: TIOTROPIUM 2.5 MCG INHALER INHALATION SCH (08:00)
[2023-02-11] MEDS: buPROPion SR 150 MG TABLET.ER PO SCH (08:33)
[2023-02-11] MEDS: METOPROLOL TARTRATE 50 MG TAB PO SCH (08:33)
[2023-02-11] MEDS ORDERED: METOPROLOL TARTRATE 50 MG TAB PO SCH (09:00)
--- NOTE | 2023-02-11 10:10 | P.PN ---
Subjective Progress Note Date: 02/11/23 HISTORY OF PRESENT ILLNESS: This is a 37-year-old female who presented to the hospital yesterday with a chief complaint of palpitations. Patient was found to be in SVT. Patient had 2 episodes of SVT in the emergency room yesterday requiring adenosine with conversion to sinus mechanism. The patient went into SVT last night and converted on her own. She was started on IV Cardizem. This morning the patient was in SVT with a heart rate in the 160s. Vagal maneuvers were attempted and patient did convert to sinus mechanism. However shortly afterwards patient went into SVT again. She was given 6 mg of adenosine with conversion to sinus mechanism. Echocardiogram completed revealing ejection fraction 55-60% with mild LVH 02/11/2023 Patient examined this morning at the bedside. Patient has had no further episodes of SVT. She denies chest pain or pressure. Denies shortness of breath. Telemetry reveals sinus mechanism. Patient was seen by Dr. Villa with plans for EP study in the next few weeks. Vital signs are stable. PHYSICAL EXAM: VITAL SIGNS: Reviewed. GENERAL: Well-developed in no acute distress. NECK: Supple. No JVD or thyromegaly LUNGS: Respirations even and unlabored. Lungs essentially clear to auscultation bilaterally. HEART: Regular rate and rhythm. S1 and S2 heard. EXTREMITIES: Normal range of motion. No clubbing or cyanosis. Peripheral pulses intact. No lower extremity edema ASSESSMENT: Recurrent SVT, 1 episode converted with vagal maneuvers, 3 episodes converted with adenosine, and one episode converted spontaneously Diabetes Morbid obesity: BMI 40.7 PLAN: Dr. Villa increased metoprolol tartrate to 50 mg twice a day Discontinue IV Cardizem Increase activity as tolerated and monitor telemetry Patient has no further episodes of SVT, she may be discharged home today from a cardiac standpoint and follow up on an outpatient basis Nurse practitioner note has been reviewed by physician. Signing provider agrees with the documented findings, assessment, and plan of care. Objective - Vital Signs Vital signs: Vital Signs Temp 97.6 F 02/11/23 08:00 Pulse 80 02/11/23 08:00 Resp 16 02/11/23 08:00 BP 102/66 02/11/23 08:00 Pulse Ox 98 02/11/23 08:00 FiO2 Intake & Output 02/10/23 02/11/23 02/11/23 18:59 06:59 18:59 Intake Total 3005 121.667 330 Balance 3005 121.667 330 Intake: Intake, IV Titration 1565 121.667 Amount ACETAMINOPHEN IV (For NPO 400 ) 1,000 mg In Empty Bag 1 bag @ 400 mls/hr IVPB ONCE STA Rx#:[id number] Diltiazem 125 mg In 25 121.667 Sodium Chloride 0.9% 100 ml @ 2.5 MG/HR 2.5 mls/hr IV .Q24H [facility] Rx#: [id number] Magnesium Sulfate-D5w Pmx 100 1 gm In Dextrose/Water 1 100ml.bag @ 100 mls/hr IVPB ONCE ONE Rx#: [id number] Sodium Chloride 0.9% 1, 1040 000 ml @ 130 mls/hr IV . Q7H42M [facility] Rx#:[id number] Oral 1440 330 Other: Voiding Method Bedside Commode Bedside Commode # Voids 2 - Labs CBC & Chem 7: 02/09/23 05:30 02/11/23 04:30 Labs: Abnormal Lab Results - Last 24 Hours (Table) 02/10/23 02/10/23 02/10/23 Range/Units 07:55 12:02 16:53 Sodium (137-145) mmol/L Glucose (74-99) mg/dL POC Glucose (mg/dL) 162 H 141 H (70-110) mg/dL Hemoglobin A1c 7.9 H (<=6.0) % Calcium (8.4-10.2) mg/dL 02/10/23 02/11/23 02/11/23 Range/Units 20:19 04:30 06:01 Sodium 135 L (137-145) mmol/L Glucose 149 H (74-99) mg/dL POC Glucose (mg/dL) 196 H 210 H (70-110) mg/dL Hemoglobin A1c (<=6.0) % Calcium 8.1 L (8.4-10.2) mg/dL
--- NOTE | 2023-02-11 11:08 | P.DS ---
Providers Date of admission: 02/09/23 06:42 Expected date of discharge: 02/11/23 Attending physician: Jaswant Kuhn MD Consults: 02/09/23 06:42 Consult Physician Routine Consulting Provider: Marycarmen Reagan Consult Reason/Comments: svt Do you want consulting provider notified?: Yes 02/10/23 14:36 Consult Physician Routine Consulting Provider: John Villa Consult Reason/Comments: recurrent SVT Do you want consulting provider notified?: Already Contacted Primary care physician: Felicita Ibarra Hospital Course: Final Diagnoses: Recurrent SVT, converted spontaneously, with vagal maneuvers, and adenosine. Elevated troponin, secondary to the above Diabetes mellitus type 2, hemoglobin A1c 7.9, further diabetic education outpatient in clinic with PCP. Hypertension Current Vaper use, occasional marijuana use, former nicotine dependence Morbid obesity, BMI 40.7 Hospital course:This is a 37-year-old female with past medical history significant for morbid obesity, diabetes mellitus, hypertension, gastric esophageal reflux disease, former nicotine dependence, currently vaper, occasional marijuana use and multiple other medical issues presented to the ER with palpitations, shortness of breath, diaphoresis. Reports yesterday after work while in the shower became dizzy, lightheaded with palpitations that lasted approximately 4 hours and resolved. Early this morning around 4:30 AM awakened by her reoccurrence palpitations or worsening accompanied by shortness of breath, nausea and diaphoresis and proceeded to the ER. Denies any leg edema, sickness, cough, congestion, chills. Reports last occurrence approximately 5 years ago when she was diagnosed with anxiety. Immediate family history of CAD, unsure of; reports her grandmother has an irregular heartbeat, her grandfather had an ME in his 30s as well as her uncle. Troponin 0.046, 0.038. EKG on admission reported SVT, heart rate 196. sinus, received adenosine, converted to sinus rhythm. minimal shortness of breath with lung sounds clear, maintaining O2 sats of 100% on 2 L nasal cannula. Electrolytes within normal limits, BUN 20, creatinine 2.6, magnesium 1.7. UA negative. Toxicology screen detected marijuana, "H". Cardiology consult in place. 02/10/2021 Episodes of SVT throughout the night, spontaneously resolved, reported. Maintained on Cardizem drip. This morning, recurrent SVT 2 episodes. Beta racheal increased. Dr. Villa consulted. Denies headache, lightheadedness or dizziness. Denies shortness of breath. Maintaining O2 sats in the high 90s on 1.5 L nasal cannula O2. Headache last night, received magnesium and Tylenol, resolved. Informed staff last night, she consumed a lot of caffeine/coffee/pop, denies this morning. Maintained on IV Cardizem, beta racheal . No further episodes of SVT . Telemetry sinus rhythm. Evaluated by Dr. Villa, tapering off cardizem drip, beta racheal increased with EP study in a few weeks. Denies chest pain, palpitations or shortness of breath. Denies lightheadedness, dizziness or focal deficits. Significant clinical improvement. Patient has been cleared by cardiology for DC home today in a stable condition with guarded prognosis- pending no further episodes of SVT after increasing activity, post discontinuation of Cardizem drip. The impression and plan of care has been dictated as directed. : I performed a history and examination of this patient, discussed the same with the dictator. I agree with the dictator's note ,documented as a scribe. Any additional findings or plans will be noted. Patient Condition at Discharge: Stable Plan - Discharge Summary Discharge Rx Participant: Yes New Discharge Prescriptions: New Metoprolol Tartrate [Lopressor] 50 mg PO BID #60 tab Continue metFORMIN HCL [Glucophage] 1,000 mg PO BID Dapagliflozin Propanediol [Farxiga] 10 mg PO DAILY buPROPion SR [Wellbutrin SR] 150 mg PO BID Tiotropium 2.5 Mcg/Puff [Spiriva Respimat 2.5 Mcg] 2 puff INHALATION RT-DAILY Vortioxetine Hydrobromide [Trintellix] 20 mg PO HS Pioglitazone [Actos] 45 mg PO DAILY Gabapentin [Neurontin] 200 mg PO HS Semaglutide [Rybelsus] 14 mg PO DAILY Discharge Medication List metFORMIN HCL [Glucophage] 1,000 mg PO BID 08/25/17 [History] Dapagliflozin Propanediol [Farxiga] 10 mg PO DAILY 07/31/19 [History] Pioglitazone [Actos] 45 mg PO DAILY 07/03/21 [History] Gabapentin [Neurontin] 200 mg PO HS 02/09/23 [History] Semaglutide [Rybelsus] 14 mg PO DAILY 02/09/23 [History] Tiotropium 2.5 Mcg/Puff [Spiriva Respimat 2.5 Mcg] 2 puff INHALATION RT-DAILY 02/09/23 [History] Vortioxetine Hydrobromide [Trintellix] 20 mg PO HS 02/09/23 [History] buPROPion SR [Wellbutrin SR] 150 mg PO BID 02/09/23 [History] Metoprolol Tartrate [Lopressor] 50 mg PO BID #60 tab 02/11/23 [Rx] Follow up Appointment(s)/Referral(s): Felicita Ibarra MD [Primary Care Provider] - 3 Days
[2023-02-11 11:32] LABS: Glucose,Whole Blood 155 mg/dL (70-110)
[2023-02-11 11:46] VITALS: PULSE 68; TEMP 97.9
[2023-02-11 14:47] VITALS: BP 118/70; RESP 14
== END 2023-02-11 15:35 | disposition home health service (06) | DRG 309 ==
LOC: EC 05:04 → 3SCARD 06:42
PROVIDERS: ADMIT Family Medicine; ATTEND Family Medicine
DX: I47.1 Supraventricular tachycardia (principal); Z68.41 Body mass index [BMI] 40.0-44.9, adult; R77.8 Other specified abnormalities of plasma proteins; E66.01 Morbid (severe) obesity due to excess calories; I10 Essential (primary) hypertension; Z87.891 Personal history of nicotine dependence; E11.9 Type 2 diabetes mellitus without complications; I07.1 Rheumatic tricuspid insufficiency; E78.5 Hyperlipidemia, unspecified; F32.A Depression, unspecified; F41.9 Anxiety disorder, unspecified; Z79.84 Long term (current) use of oral hypoglycemic drugs; Z82.49 Family history of ischemic heart disease and other diseases of the circulatory system; Z79.899 Other long term (current) drug therapy; Z98.51 Tubal ligation status
CPT/HCPCS: 36415; 80048; 80053; 80306; 81003; 83036; 83735; 84443; 84484; 85025; 85379; 85610; 85730; 93005; 93306; 94640; 94760; 96361; 96374; 96375; 96376; 99291

== ENCOUNTER → 2023-04-02 | Outpatient (CLI) | payer OTHER ==
[2023-04-02 13:18] LABS: Blood Urea Nitrogen 17.3 mg/dL (9.0-27.0); Carbon Dioxide 22.3 mmol/L (21.6-31.8); Chloride 104 mmol/L (96-109); Potassium 3.9 mmol/L (3.5-5.5); Sodium 141 mmol/L (135-145)
[2023-04-02 13:25] LABS: HCT 41.4 % (37.2-46.3); HGB 13.7 d/dL (12.0-15.0); MCH 31.9 pg (27.0-32.0); MCHC 33.1 d/dL (32.0-37.0); MCV 96.3 FL (80.0-97.0); Mean Platelet Volume 10.3 FL (9.5-12.2); NRBC Per 100 WBC 0 X 10*3/uL (0.00-0.01); Platelet Count 258 X 10*3/uL (140-440); RDW 12.5 % (11.5-14.5); WBC 8.47 X 10*3/uL (4.50-10.00)
== END | disposition home or self-care (01) ==
LOC: LABWHC1 09:06
PROVIDERS: ATTEND Internal Medicine Clinical Cardiac Electrophysiology
DX: Z01.818 Encounter for other preprocedural examination (principal); I47.1 Supraventricular tachycardia
CPT/HCPCS: 36415; 80051; 82565; 84520; 85027

== ENCOUNTER 2023-04-07 12:11 | Day surgery (SDC) | payer OTHER ==
[2023-03-31 14:48] VITALS: BMI 41.6
[2023-04-07] MEDS: SODIUM CHLORIDE 0.9% 1,000 ML IV SCH (12:55)
[2023-04-07 12:58] LABS: Glucose,Whole Blood 173 mg/dL (70-110)
[2023-04-07] MEDS ORDERED: MIDAZOLAM 2 MG/2 ML VIAL ONE (15:08)
[2023-04-07] MEDS ORDERED: PROPOFOL 10 MG/ML 20 ML VIAL IV ONE (15:08)
[2023-04-07] MEDS ORDERED: KETAMINE 10 MG/ML 20 ML VIAL ONE (15:08)
[2023-04-07] MEDS ORDERED: ISOPROTERENOL 250 MCG/1.25 ML SYR IV ONE (15:08)
[2023-04-07] MEDS ORDERED: fentaNYL (PF) 50 MCG/ML 2 ML AMP ONE (15:08)
[2023-04-07] MEDS ORDERED: diphenhydrAMINE 50 MG/ML 1 ML VIAL ONE (15:08)
[2023-04-07] MEDS ORDERED: LIDOCAINE 1% INJ 10MG/ML (20 ML MDV) ONE ×3 (15:22→15:45)
[2023-04-07] MEDS ORDERED: LIDOCAINE 1% INJ 10MG/ML (20 ML MDV) SQ ONE ×3 (15:35→16:28)
[2023-04-07] MEDS ORDERED: HEPARIN SODIUM (1,000 UNIT/ML) 1,000 UNIT in SODIUM CHLORIDE 0.9% 1,000 ML IRRIGATION ONE (16:32)
--- NOTE | 2023-04-07 18:21 | P.HPCAR ---
History of Present Illness This is Dr. Villa dictating an H/P on this patient The patient was interviewed and examined IMPRESSION / ASSESSMENT: Recurrent drug refractory SVT associated with dizziness Breakthrough episodes of metoprolol Type 2 diabetes Morbid obesity Hypertension PLAN: Diagnostic EP study and SVT ablation HPI Patient continues to have episodes of SVT despite metoprolol She feels dizzy at this time She denies any fever chills cough expectoration nausea vomiting recently ROS: No fever chills or rigors, no cough, phlegm or expectoration, no nausea, vomiting or diarrhea, no hematuria, dysuria, no musculoskeletal complaints, no strokes or seizures, no skin lesions. EXAMINATION: Blood pressure normal 117/66. His mercury pulse rate in the 90s, afebrile Normal heart sounds no murmurs or gallops or rub Normal breath sounds no rhonchi no crackles No lower extremity edema REVIEW OF LABS, ECG & MEDICAL DATA Beta hCG urine negative Patient is on metoprolol succinate, Farsi to and metformin Physical Exam Vitals: Vital Signs Temp Pulse Resp BP Pulse Ox 04/07/23 12:50 98.3 F 90 16 117/66 98 Intake and Output 04/07/23 04/07/23 04/07/23 06:59 14:59 22:59 Intake Total 619 Balance 619 Intake: IV 619 Other: Weight 107.9 kg Past Medical History Past Medical History: Diabetes Mellitus, GERD/Reflux, Hyperlipidemia Additional Past Medical History / Comment(s): diverticulitis, sinus issues History of Any Multi-Drug Resistant Organisms: None Reported Past Surgical History: Ear Surgery, Orthopedic Surgery, Tonsillectomy, Tubal Ligation, Uterine Ablation Additional Past Surgical History / Comment(s): L knee-ARTHROSCOPIC Past Anesthesia/Blood Transfusion Reactions: No Reported Reaction Additional Drug Use History / Comment(s): OCCASIONAL USE - Past Family History Mother Family Medical History: Diabetes Mellitus, Hyperlipidemia, Hypertension Father Family Medical History: Hypertension Physical Examination Vital Signs Temp Pulse Resp BP Pulse Ox 04/07/23 12:50 98.3 F 90 16 117/66 98 Intake and Output 04/07/23 04/07/23 04/07/23 06:59 14:59 22:59 Intake Total 619 Balance 619 Intake: IV 619 Other: Weight 107.9 kg Results Current Medications Generic Name Dose Route Start Last Admin Trade Name Freq PRN Reason Stop Dose Admin Sodium Chloride 1,000 mls @ 20 mls/hr 04/07/23 05:57 04/07/23 12:55 Saline 0.9% IV 05/07/23 05:58 400 mls .Q24H ELIS Administration Intake and Output 04/07/23 04/07/23 04/07/23 06:59 14:59 22:59 Intake Total 619 Balance 619 Intake: IV 619 Other: Weight 107.9 kg Patient Weight 04/08/23 06:59 Weight 107.9 kg
[2023-04-07] MEDS ORDERED: ACETAMINOPHEN IV (For NPO) 1,000 MG in EMPTY BAG 1 BAG IVPB ONE (18:25)
[2023-04-07] MEDS ORDERED: SODIUM CHLORIDE 0.9% 500 ML 500 ML IV ONE (18:26)
--- NOTE | 2023-04-07 18:34 | P.EPPROC ---
- EP Procedure Note Electrophysiology Procedure Note: Diagnosis Recurrent SVT, drug refractory Final diagnosis Inducible AV pati breath and tachycardiac EP study Status post successful mapping and ablation of slow pathway Tachycardia rendered noninducible both on and off Isuprel Details Patient was brought to the EP lab in a fasting state. Written informed consent was obtained prior to the procedure. Venous sheaths were placed in the right left femoral veins. Diagnostic catheters were positioned in the high right atrium, His bundle area, coronary sinus and right ventricle Diagnostic EP study was performed Sinus cycle length 770 ms, UT interval 129 ms, QRS 99 and QT 375 ms AH 85 and HV 33 ms Pati response to Parahisian pacing Sinus node recovery times at 600, 504 100 ms were 896, 1986 and 1926 ms. VA Wenckebach block 250 ms SVT induced with straight pacing from the high right atrium at 320 ms Short septum times Long PPI His refractory PVCs did not advance tachycardia Spontaneous termination that ended with an atrial signal A long sheath placed along with an irrigated tip ablation catheter The slow pathway was mapped. Thick to be seen valve issue outside the CS os RF ablation applied outside and below the CS os anteriorly Subsequently just of the septum RF ablation resulted in appearance of junctional rhythm and then spontaneously back to sinus rhythm the in good contact force and power achieved this site There was no evidence for inducible SVT and no evidence for slow pathway at the end of the procedure Repeat testing was performed on and off Isuprel no other arrhythmias were induced no SVT no evidence for slow pathway conduction All sheaths were removed catheters were removed and the groin punctures proceed with Vascade Patient tolerated the procedure well without any acute complications
[2023-04-07] MEDS: buPROPion SR 150 MG TABLET.ER PO SCH (20:11)
[2023-04-07] MEDS: metFORMIN 500 MG TAB PO SCH (20:11)
[2023-04-07 20:12] LABS: Glucose,Whole Blood 112 mg/dL (70-110)
[2023-04-07] MEDS ORDERED: NON FORMULARY DRUG (Vilazodone Hcl [Viibryd] 20 MG Tablet) PO SCH (21:00)
[2023-04-07] MEDS ORDERED: GABAPENTIN 100 MG CAP PO SCH (21:00)
[2023-04-07] MEDS ORDERED: ACETAMINOPHEN TAB 325 MG TAB PO PRN (23:59)
[2023-04-08] MEDS: SODIUM CHLORIDE 0.9% 1,000 ML IV SCH (04:44)
[2023-04-08] MEDS ORDERED: IPRATROPIUM 0.5 MG/2.5 ML NEBU INHALATION SCH (08:00)
[2023-04-08] MEDS ORDERED: PIOGLITAZONE 45 MG TAB PO SCH (09:00)
[2023-04-08] MEDS ORDERED: NON FORMULARY DRUG (Semaglutide [Rybelsus] 14 MG Tablet) PO SCH (09:00)
[2023-04-08] MEDS ORDERED: DAPAGLIFLOZIN PROPANEDIOL 10 MG TABLET PO SCH (09:00)
[2023-04-08 09:05] VITALS: BP 116/83; PULSE 86; RESP 18; TEMP 97.9
--- NOTE | 2023-04-08 09:06 | P.DS ---
Providers Attending physician: John Villa Primary care physician: [facility] Course: Patient is doing well. 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 Guillen within one week Plan - Discharge Summary Discharge Rx Participant: No New Discharge Prescriptions: Continue metFORMIN HCL [Glucophage] 1,000 mg PO BID Dapagliflozin Propanediol [Farxiga] 10 mg PO DAILY buPROPion SR [Wellbutrin SR] 150 mg PO BID Tiotropium 2.5 Mcg/Puff [Spiriva Respimat 2.5 Mcg] 2 puff INHALATION RT-DAILY Vilazodone HCl [Viibryd] 40 mg PO HS Pioglitazone [Actos] 45 mg PO DAILY Gabapentin [Neurontin] 200 mg PO HS Semaglutide [Rybelsus] 14 mg PO DAILY Discontinued Metoprolol Succinate (ER) [Toprol Xl] 50 mg PO DAILY Discharge Medication List metFORMIN HCL [Glucophage] 1,000 mg PO BID 08/25/17 [History] Dapagliflozin Propanediol [Farxiga] 10 mg PO DAILY 07/31/19 [History] Pioglitazone [Actos] 45 mg PO DAILY 07/03/21 [History] Gabapentin [Neurontin] 200 mg PO HS 02/09/23 [History] Semaglutide [Rybelsus] 14 mg PO DAILY 02/09/23 [History] Tiotropium 2.5 Mcg/Puff [Spiriva Respimat 2.5 Mcg] 2 puff INHALATION RT-DAILY 02/09/23 [History] buPROPion SR [Wellbutrin SR] 150 mg PO BID 02/09/23 [History] Vilazodone HCl [Viibryd] 40 mg PO HS 03/03/23 [History] Follow up Appointment(s)/Referral(s): Sawyer Tsang MD [STAFF PHYSICIAN] - 1 Week Activity/Diet/Wound Care/Special Instructions: Post EP study - Ablation instructions 1. Keep access sites dry for 2 days. 2. No heavy lifting or straining for 2 days. 3. Avoid bending the hips repeatedly for 2 days. 4. You may go up and down stairs slowly Call if the following is noted 1. Bleeding, increasing swelling or pain at the access sites. 2. Increasing chest discomfort, especially upon taking a deep breath. 3. Increasing shortness of breath, at rest or with exertion. 4. Undue cough / phlegm 5. Difficulty or pain while swallowing. 6. Pain or change in color in the extremities. 7. Fever, chills, rigors. 8. Increasing headache or neurologic symptoms. 9. Dizziness, fainting, palpitations Discharge Disposition: HOME SELF-CARE
[2023-04-08] MEDS: buPROPion SR 150 MG TABLET.ER PO SCH (10:23)
[2023-04-08] MEDS: metFORMIN 500 MG TAB PO SCH (10:23)
== END 2023-04-08 10:37 | disposition home or self-care (01) ==
LOC: CATHEP 12:11 → 6NMEDSUR 17:50 → CATHEP 04-08 10:37
PROVIDERS: ATTEND Internal Medicine Clinical Cardiac Electrophysiology
DX: I47.1 Supraventricular tachycardia (principal); E11.9 Type 2 diabetes mellitus without complications; I10 Essential (primary) hypertension; E78.5 Hyperlipidemia, unspecified; K21.9 Gastro-esophageal reflux disease without esophagitis; Z98.890 Other specified postprocedural states; Z98.51 Tubal ligation status; Z90.89 Acquired absence of other organs; Z83.49 Family history of other endocrine, nutritional and metabolic diseases; Z82.49 Family history of ischemic heart disease and other diseases of the circulatory system
CPT/HCPCS: 93623; 93653; 86900; 86901; 86850; 81025; J2250; J1200; S0106; J2001; J3010; J1644; J0131; J2704

== ENCOUNTER 2023-12-28 10:12 | Emergency (ER) | payer OTHER ==
[2023-12-28] MEDS: SODIUM CHLORIDE 0.9% 1,000 ML IV STA (11:19)
[2023-12-28] MEDS: ONDANSETRON 4 MG/2 ML VIAL IVP STA (11:19)
[2023-12-28] MEDS: PANTOPRAZOLE 40 MG/10 ML VIAL IVP STA (11:25)
[2023-12-28] MEDS: HYDROmorphone 0.5 MG/0.5 ML SYRINGE IVP STA ×2 (11:27→13:46)
[2023-12-28 11:37] LABS: Basophils % (A) 0 %; Eosinophils # (A) 0.1 k/uL (0-0.7); Eosinophils % (A) 1 %; HCT 40.6 % (34.0-46.0); HGB 13.7 gm/dL (11.4-16.0); Lymphocytes # (A) 1.1 k/uL (1.0-4.8); Lymphocytes % (A) 16 %; MCH 32.9 pg (25.0-35.0); MCHC 33.6 g/dL (31.0-37.0); MCV 98.1 fL (80.0-100.0); Mean Platelet Volume 8.1; Monocytes # (A) 0.4 k/uL (0-1.0); Monocytes % (A) 5 %; Neutrophils # (A) 5.1 k/uL (1.3-7.7); Neutrophils % (A) 76 %; Platelet Count 250 k/uL (150-450); RBC 4.14 m/uL (3.80-5.40); RDW 12.3 % (11.5-15.5); WBC 6.7 k/uL (3.8-10.6)
[2023-12-28 11:50] VITALS: RESP 18; TEMP 97.6
[2023-12-28 11:55] LABS: Partial Thromboplastin Time 24.4 sec (22.0-30.0); Prothrombin Time 10.5 sec (10.0-12.5)
[2023-12-28 12:02] LABS: HCG,Qualitative Serum Not Detected
[2023-12-28 12:04] LABS: ALT 30 U/L (4-34); AST 24 U/L (14-36); African American GFR (CKD) >90 (>60 ml/min/1.73 sqM); Albumin 4.2 g/dL (3.5-5.0); Alkaline Phosphatase 56 U/L (38-126); Amylase 59 U/L (30-110); Anion Gap 7 mmol/L; Appearance,Urine Cloudy (Clear); Bacteria,Urine Rare /hpf; Bilirubin,Urine Negative (Negative); Blood Urea Nitrogen 16 mg/dL (7-17); Blood,Urine Negative (Negative); Calcium 9.2 mg/dL (8.4-10.2); Carbon Dioxide 26 mmol/L (22-30); Chloride 104 mmol/L (98-107); Color,Urine Yellow; Glucose 258 mg/dL (74-99); Glucose,Urine (UA) 4+ (Negative); Ketones,Urine 1+ (Negative); Leukocyte Esterase,Urine Negative (Negative); Lipase 402 U/L (23-300); Mucus,Urine Occasional /hpf; Nitrite,Urine Negative (Negative); Non-African American GFR(CKD) >90 (>60 ml/min/1.73 sqM); PH, Urine 5.5 (5.0-8.0); Potassium 3.8 mmol/L (3.5-5.1); Protein,Urine Trace (Negative); RBC,Urine 1 /hpf (0-5); Sodium 137 mmol/L (137-145); Squamous Epithelial Cell,Urine 19 /hpf (0-4); Total Bilirubin 0.7 mg/dL (0.2-1.3); Urobilinogen,Urine <2.0 mg/dL (<2.0); WBC,Urine 11 /hpf (0-5)
--- NOTE | 2023-12-28 13:14 | CT ---
EXAMINATION TYPE: CT abdomen pelvis w con DATE OF EXAM: 12/28/2023 COMPARISON: 09/24/2021 HISTORY: LLQ abdominal pain CT DLP: 1829.1 mGycm CONTRAST: CT scan of the abdomen and pelvis is performed without Oral Contrast and with IV Contrast, patient in jected with 100 ml mL of Isovue 300. FINDINGS: LUNG BASES-: No visible nodule. No infiltrate. LIVER/GB: The gallbladder is surgically absent. No space occupying hepatic lesion. Biliary tree is of normal caliber. PANCREAS: No inflammation. No distinct mass. SPLEEN: No splenic enlargement. No lesion seen. ADRENALS: No nodule. No thickening. KIDNEYS/BLADDER: No hydronephrosis. No nephrolithiasis. No distinct renal mass. Urinary bladder g rossly unremarkable. BOWEL: Normal appendix. Normal bowel caliber. No inflammation. GENITAL ORGANS: No gross abnormality. LYMPH NODES: No greater than 1cm abdominal or pelvic lymph nodes are appreciated. AORTA: No significant abnormality. OSSEOUS STRUCTURES: No significant abnormality is seen. OTHER: No significant additional abnormality is seen. IMPRESSION: 1. No acute process seen to account for the patient's symptoms.
[2023-12-28 13:37] VITALS: PULSE 64
--- NOTE | 2023-12-28 13:41 | ED ---
General Adult HPI - General Chief complaint: Abdominal Pain Stated complaint: Abd pain Time Seen by Provider: 12/28/23 10:56 Source: patient, RN notes reviewed, old records reviewed Mode of arrival: ambulatory Limitations: no limitations - History of Present Illness Initial comments: Is a 38-year-old female presents emergency department complaining of lower abdominal pain. Primarily in the left lower quadrant but also mildly in the right lower quadrant. Describes it as pain and cramping sensation. Has been ongoing for 2 to 3 days. Also has diarrhea. Denies any dysuria or hematuria. Denies any recent vaginal bleeding or discharge. Had 1 episode of atypical bleeding last week prior to symptom onset. Denies any nausea or vomiting. Denies any chest pain or shortness of breath. Denies any fevers. Presents for further evaluation at this time. Does not believe she is . She does have a history of diverticulitis. - Related Data Home Medications Medication Instructions Recorded Confirmed metFORMIN HCL [Glucophage] 1,000 mg PO BID 08/25/17 12/28/23 Pioglitazone [Actos] 45 mg PO DAILY 07/03/21 12/28/23 Tiotropium 2.5 Mcg/Puff [Spiriva 2 puff INHALATION RT-DAILY 02/09/23 12/28/23 Respimat 2.5 Mcg] Vilazodone HCl [Viibryd] 20 mg PO DAILY 03/03/23 12/28/23 Albuterol Sulfate [Albuterol 2 puff INHALATION RT-Q4H PRN 12/28/23 12/28/23 Sulfate Hfa] Atorvastatin [Lipitor] 10 mg PO DAILY 12/28/23 12/28/23 Cholecalciferol (Vitamin D3) 1,250 mcg PO Q7D 12/28/23 12/28/23 [Vitamin D3 (1250 Mcg = 50,000 Iu)] Dextroamphetamine/Amphetamine 20 mg PO DAILY 12/28/23 12/28/23 [Adderall Xr 20 mg Capsule] Gabapentin 300 mg PO BID 12/28/23 12/28/23 Lumateperone Tosylate [Caplyta] 42 mg PO HS 12/28/23 12/28/23 Magnesium Oxide [Mag-Ox] 400 mg PO HS 12/28/23 12/28/23 Metoprolol Succinate (ER) [Toprol 50 mg PO DAILY 12/28/23 12/28/23 Xl] Tirzepatide [Mounjaro] 2.5 mg SQ WE 12/28/23 12/28/23 Vilazodone HCl [Viibryd] 10 mg PO DAILY 12/28/23 12/28/23 busPIRone HCl [Buspar] 10 mg PO BID PRN 12/28/23 12/28/23 hydrOXYzine HCL [Atarax] 10 mg PO HS PRN 12/28/23 12/28/23 traZODone HCL [Desyrel] 50 mg PO HS 12/28/23 12/28/23 Allergies Allergy/AdvReac Type Severity Reaction Status Date / Time No Known Allergies Allergy Verified 12/28/23 13:33 Review of Systems ROS Statement: Those systems with pertinent positive or pertinent negative responses have been documented in the HPI. Review of Systems: CONST: Denies fever EYES: Denies blurry vision ENT: Denies nasal congestion C/V: Denies Chest pain RESP: Denies shortness of breath GI: Endorses abdominal pain : Denies dysuria SKIN: Denies rash. MSK: Denies joint pain. NEURO: Denies headache ROS Other: All systems not noted in ROS Statement are negative. Past Medical History Past Medical History: Diabetes Mellitus, GERD/Reflux, Hyperlipidemia Additional Past Medical History / Comment(s): diverticulitis, sinus issues History of Any Multi-Drug Resistant Organisms: None Reported Past Surgical History: Ear Surgery, Orthopedic Surgery, Tonsillectomy, Tubal Ligation, Uterine Ablation Additional Past Surgical History / Comment(s): L knee-ARTHROSCOPIC Past Anesthesia/Blood Transfusion Reactions: No Reported Reaction Past Psychological History: Anxiety, Depression Smoking Status: Former smoker, Vaper Past Alcohol Use History: None Reported Past Drug Use History: None Reported - Past Family History Mother Family Medical History: Diabetes Mellitus, Hyperlipidemia, Hypertension Father Family Medical History: Hypertension General Exam - General Exam Comments Initial Comments: General: Appears in mild distress secondary to pain. HEAD: Normal with no signs of head trauma. EYES: PERRLA, EOMI, conjunctiva normal, no discharge. ENT: Hearing grossly intact, normal oropharynx. RESPIRATORY: Clear breath sounds bilaterally. No wheezes, rales, or rhonchi. C/V: Regular rate and rhythm. S1 and S2 auscultated, no edema, peripheral pulses 2+ and intact throughout ABD: Abdomen soft, nondistended. Tender palpation primarily in the left lower quadrant but mildly in the suprapubic and right lower quadrant. No guarding. No rebound tenderness. No peritoneal signs. EXT: Normal range of motion, no obvious deformity SKIN: No rashes or lesions observed on exposed skin. NEURO: Alert and oriented x 4. No focal deficits. Limitations: no limitations Course Vital Signs 12/28/23 12/28/23 12/28/23 10:13 11:28 13:10 Temperature 97.6 F Pulse Rate 90 65 64 Respiratory 20 18 18 Rate Blood Pressure 144/87 129/85 107/63 O2 Sat by Pulse 99 98 98 Oximetry 12/28/23 15:01 Temperature Pulse Rate 64 Respiratory 18 Rate Blood Pressure 111/74 O2 Sat by Pulse 97 Oximetry Medical Decision Making - Medical Decision Making Was pt. sent in by a medical professional or institution (, PA, RECRUITING INTERN, urgent care, hospital, or penitentiary...) When possible be specific @ -No Did you speak to anyone other than the patient for history (EMS, parent, family, police, friend...)? What history was obtained from this source @ -No Did you review nursing and triage notes (agree or disagree)? Why? @ -I reviewed and agree with nursing and triage notes Were old charts reviewed (outside hosp., previous admission, EMS record, old EKG, old radiological studies, urgent care reports/EKG's, penitentiary records)? Report findings @ -No old charts were reviewed Differential Diagnosis (chest pain, altered mental status, abdominal pain women, abdominal pain men, vaginal bleeding, weakness, fever, dyspnea, syncope, headache, dizziness, GI bleed, back pain, seizure, CVA, palpatations, mental health, musculoskeletal)? @ -Differential Abdominal Pain Women: Appendicitis, Cholecystitis, diverticulosis, ischemic bowel, pancreatitis, hepatitis, UTI, gastroenteritis, AAA, incarcerated hernia, bowel obstruction, constipation, inflammatory bowel, hepatitis, peptic ulcer disease, splenic infarction, perforated viscus, vulvitis, ovarian torsion, PID, kidney stone, placenta abruption, this is not meant to be an all-inclusive list EKG interpreted by me (3pts min.). @ -None done X-rays interpreted by me (1pt min.). @ -None done CT interpreted by me (1pt min.). @ -CT abdomen pelvis reveals no obvious acute intra-abdominal process. U/S interpreted by me (1pt. min.). @ -Ultrasound negative for torsion. What testing was considered but not performed or refused? (CT, X-rays, U/S, labs)? Why? @ -None What meds were considered but not given or refused? Why? @ -None Did you discuss the management of the patient with other professionals (professionals i.e. , PA, RECRUITING INTERN, lab, RT, psych nurse, case management social worker, hat and cap parts cutter hand, teacher, commissioned police officer, keycase assembler)? Give summary @ -No Was smoking cessation discussed for >3mins.? @ -No Was critical care preformed (if so, how long)? @ -No Were there social determinants of health that impacted care today? How? (Homelessness, low income, unemployed, alcoholism, drug addiction, transportation, low edu. Level, literacy, decrease access to med. care, senior care, rehab)? @ -No Was there de-escalation of care discussed even if they declined (Discuss DNR or withdrawal of care, Hospice)? DNR status @ -No What co-morbidities impacted this encounter? (DM, HTN, Smoking, COPD, CAD, Cancer, CVA, ARF, Chemo, Hep., AIDS, mental health diagnosis, sleep apnea, morbid obesity)? @ -None Was patient admitted / discharged? Hospital course, mention meds given and route, prescriptions, significant lab abnormalities, going to OR and other pertinent info. @ -Send patient's presentation and physical exam, presents with abdominal pain. We will obtain abdominal workup as well as CT imaging. Concern for possible diverticulitis or other acute pathology. Patient was in agreement this plan. She will be symptomatically treated with IV analgesia medications, fluids, Protonix, Zofran. Vital signs within acceptable limits. Laboratory studies are also within acceptable limits except for slightly elevated lipase of 402. Slight hyperglycemia as well of 258. Urinalysis appears to be contaminated. CT shows no signs of acute intra-abdominal process. Patient has negative test. On reevaluation, patient is still having pain. No clear etiology for the pain at this time based on labs and imaging. Recommended ultrasound to evaluate for ovarian torsion. She was in agreement this plan. Ultrasound was negative for ovarian torsion. On reevaluation, patient is feeling improved. Diagnosis is abdominal pain of unknown etiology. She will be discharged home at this time. She was in agreement this plan. Strict return precautions discussed. I will provide the patient with a prescription for the pack of Tylenol 3. I instructed the patient to follow up with their PCP in the next 1-3 days.. I explained that the patient should return to the emergency department if they experience any worsening symptoms. Strict return precautions were discussed with the patient. The patient expressed understanding of these instructions. I answered all questions that the patient had. The patient was discharged home in [good] condition with their prescriptions and follow up information. Undiagnosed new problem with uncertain prognosis? @ -No Drug Therapy requiring intensive monitoring for toxicity (Heparin, Nitro, Insulin, Cardizem)? @ -No Were any procedures done? @ -No Diagnosis/symptom? @ -Abdominal pain of unknown etiology Acute, or Chronic, or Acute on Chronic? @ -Acute Uncomplicated (without systemic symptoms) or Complicated (systemic symptoms)? @ -Uncomplicated Side effects of treatment? @ -None Exacerbation, Progression, or Severe Exacerbation] @ -No Poses a threat to life or bodily function? @ -Unlikely - Lab Data Result diagrams: 12/28/23 11:18 12/28/23 11:18 Lab Results 12/28/23 12/28/23 12/28/23 Range/Units 11:18 11:18 11:18 WBC 6.7 (3.8-10.6) k/uL RBC 4.14 (3.80-5.40) m/uL Hgb 13.7 (11.4-16.0) gm/dL Hct 40.6 (34.0-46.0) % MCV 98.1 (80.0-100.0) fL MCH 32.9 (25.0-35.0) pg MCHC 33.6 (31.0-37.0) g/dL RDW 12.3 (11.5-15.5) % Plt Count 250 (150-450) k/uL MPV 8.1 Neutrophils % 76 % Lymphocytes % 16 % Monocytes % 5 % Eosinophils % 1 % Basophils % 0 % Neutrophils # 5.1 (1.3-7.7) k/uL Lymphocytes # 1.1 (1.0-4.8) k/uL Monocytes # 0.4 (0-1.0) k/uL Eosinophils # 0.1 (0-0.7) k/uL Basophils # 0.0 (0-0.2) k/uL PT 10.5 (10.0-12.5) sec INR 1.0 (<1.2) APTT 24.4 (22.0-30.0) sec Sodium 137 (137-145) mmol/L Potassium 3.8 (3.5-5.1) mmol/L Chloride 104 (98-107) mmol/L Carbon Dioxide 26 (22-30) mmol/L Anion Gap 7 mmol/L BUN 16 (7-17) mg/dL Creatinine 0.54 (0.52-1.04) mg/dL Est GFR (CKD-EPI)AfAm >90 (>60 ml/min/1.73 sqM) Est GFR (CKD-EPI)NonAf >90 (>60 ml/min/1.73 sqM) Glucose 258 H (74-99) mg/dL Plasma Lactic Acid Arnaud (0.7-2.0) mmol/L Calcium 9.2 (8.4-10.2) mg/dL Total Bilirubin 0.7 (0.2-1.3) mg/dL AST 24 (14-36) U/L ALT 30 (4-34) U/L Alkaline Phosphatase 56 (38-126) U/L Total Protein 7.0 (6.3-8.2) g/dL Albumin 4.2 (3.5-5.0) g/dL Amylase 59 (30-110) U/L Lipase 402 H (23-300) U/L HCG, Qual Not Detected Urine Color Urine Appearance (Clear) Urine pH (5.0-8.0) Ur Specific [place] (1.001-1.035) Urine Protein (Negative) Urine Glucose (UA) (Negative) Urine Ketones (Negative) Urine Blood (Negative) Urine Nitrite (Negative) Urine Bilirubin (Negative) Urine Urobilinogen (<2.0) mg/dL Ur Leukocyte Esterase (Negative) Urine RBC (0-5) /hpf Urine WBC (0-5) /hpf Ur Squamous Epith Cells (0-4) /hpf Urine Bacteria (None) /hpf Urine Mucus (None) /hpf 12/28/23 12/28/23 Range/Units 11:18 11:18 WBC (3.8-10.6) k/uL RBC (3.80-5.40) m/uL Hgb (11.4-16.0) gm/dL Hct (34.0-46.0) % MCV (80.0-100.0) fL MCH (25.0-35.0) pg MCHC (31.0-37.0) g/dL RDW (11.5-15.5) % Plt Count (150-450) k/uL MPV Neutrophils % % Lymphocytes % % Monocytes % % Eosinophils % % Basophils % % Neutrophils # (1.3-7.7) k/uL Lymphocytes # (1.0-4.8) k/uL Monocytes # (0-1.0) k/uL Eosinophils # (0-0.7) k/uL Basophils # (0-0.2) k/uL PT (10.0-12.5) sec INR (<1.2) APTT (22.0-30.0) sec Sodium (137-145) mmol/L Potassium (3.5-5.1) mmol/L Chloride (98-107) mmol/L Carbon Dioxide (22-30) mmol/L Anion Gap mmol/L BUN (7-17) mg/dL Creatinine (0.52-1.04) mg/dL Est GFR (CKD-EPI)AfAm (>60 ml/min/1.73 sqM) Est GFR (CKD-EPI)NonAf (>60 ml/min/1.73 sqM) Glucose (74-99) mg/dL Plasma Lactic Acid Arnaud 1.3 (0.7-2.0) mmol/L Calcium (8.4-10.2) mg/dL Total Bilirubin (0.2-1.3) mg/dL AST (14-36) U/L ALT (4-34) U/L Alkaline Phosphatase (38-126) U/L Total Protein (6.3-8.2) g/dL Albumin (3.5-5.0) g/dL Amylase (30-110) U/L Lipase (23-300) U/L HCG, Qual Urine Color Yellow Urine Appearance Cloudy H (Clear) Urine pH 5.5 (5.0-8.0) Ur Specific [place] 1.050 H (1.001-1.035) Urine Protein Trace H (Negative) Urine Glucose (UA) 4+ H (Negative) Urine Ketones 1+ H (Negative) Urine Blood Negative (Negative) Urine Nitrite Negative (Negative) Urine Bilirubin Negative (Negative) Urine Urobilinogen <2.0 (<2.0) mg/dL Ur Leukocyte Esterase Negative (Negative) Urine RBC 1 (0-5) /hpf Urine WBC 11 H (0-5) /hpf Ur Squamous Epith Cells 19 H (0-4) /hpf Urine Bacteria Rare H (None) /hpf Urine Mucus Occasional H (None) /hpf Disposition Clinical Impression: Abdominal pain of unknown etiology Disposition: HOME SELF-CARE Condition: Good Instructions (If sedation given, give patient instructions): Abdominal Pain (ED) Is patient prescribed a controlled substance at d/c from ED?: No Referrals: None,Stated [Primary Care Provider] - 1-2 days Forms: Area PCPs Time of Disposition: 14:50
--- NOTE | 2023-12-28 14:30 | US ---
EXAMINATION TYPE: US transvaginal DATE OF EXAM: 12/28/2023 COMPARISON: 12/28/23 CT CLINICAL INDICATION: Female, 38 years old with history of eval for torsion of ovaries; hx tubal ligat ion; hx ablation TECHNIQUE: Transvaginal (TV). Date of LMP: ~5 years ago EXAM MEASUREMENTS: Uterus: 6.9 x 3.4 x 4.1 cm Endometrial Stripe: 0.36 cm Right Ovary: 2.9 x 1.6 x 3.0 cm Left Ovary: 2.9 x 2.2 x 1.8 cm 1. Uterus: Anteverted 2. Endometrium: heterogeneous 3. Right Ovary: Corpus luteal cyst 1.7 x 1.5 x 1.6 cm 4. Left Ovary: Follicle noted Spectral, color and waveform doppler imaging shows good arterial and venous flow within the ovaries ; there is no evidence for ovarian torsion. 5. Bilateral Adnexa: wnl 6. Posterior cul-de-sac: wnl IMPRESSION: 1. No evidence for acute process. 2. Appropriate arterial and venous spectral waveforms to the ovaries. 3. Endometrium within normal limits for thickness.
[2023-12-28] MEDS: ACET/COD 300 MG/30 MG STARTER PACK 6 TAB BTL PO STA (14:58)
[2023-12-28] MEDS: ONDANSETRON 4 MG ODT STARTER PACK 2 TAB BTL PO STA (14:59)
[2023-12-28 15:23] VITALS: BP 111/74
== END 2023-12-28 15:02 | disposition home or self-care (01) ==
LOC: EC 10:12
DX: R10.32 Left lower quadrant pain (principal); F17.290 Nicotine dependence, other tobacco product, uncomplicated
CPT/HCPCS: 36415; 80053; 82150; 83605; 83690; 85025; 85610; 85730; 81001; 84703; 93975; 76830; 74177; 99284; 96374; 96375 ×2; 96376; 96361; J2405; S0119; C9113; J1170; Q9967

== ENCOUNTER 2024-03-25 19:27 | Emergency (ER) | payer OTHER ==
[2024-03-25] MEDS ORDERED: KETOROLAC 15 MG/ML 1 ML VIAL ONE (21:20)
== END 2024-03-25 22:30 | disposition home or self-care (01) ==
LOC: EC 19:27
CPT/HCPCS: 96372; 99283

== ENCOUNTER 2024-05-16 18:32 | Emergency (ER) | payer OTHER ==
[2024-05-16 18:40] VITALS: RESP 18
--- NOTE | 2024-05-16 18:59 | ED ---
Skin/Abscess/FB HPI - General Source: patient, RN notes reviewed Mode of arrival: ambulatory Limitations: no limitations <Venita Tyson - Last Filed: 05/16/24 18:58> <Miguel Knight - Last Filed: 05/17/24 04:33> - General Chief complaint: Skin/Abscess/Foreign Body Stated complaint: lump on R ear/facial tingling Time Seen by Provider: 05/16/24 18:58 - History of Present Illness Initial comments: Quick note: 38-year-old female presented to ER with a chief complaint of right postauricular mass. She states been for approximately 1 month. She states today she noticed extreme tenderness that is now traveling inferiorly and into her jaw. She has been treated with antibiotics by PCP without improvement. (Venita Tyson) 38-year-old female presenting with chief complaint of painful lump behind the right ear. Patient states that the lump has been there for about a month. It was not previously causing her any pain but as a few days ago it has been increasingly painful. No injury or trauma. She has tenderness that extends over the right side of her face including the forehead. No pain inside of the ear. She was on antibiotics a few weeks ago. No fevers. (Miguel Knight) - Related Data Home Medications Medication Instructions Recorded Confirmed metFORMIN HCL [Glucophage] 1,000 mg PO BID 08/25/17 12/28/23 Pioglitazone [Actos] 45 mg PO DAILY 07/03/21 12/28/23 Tiotropium 2.5 Mcg/Puff [Spiriva 2 puff INHALATION RT-DAILY 02/09/23 12/28/23 Respimat 2.5 Mcg] Vilazodone HCl [Viibryd] 20 mg PO DAILY 03/03/23 12/28/23 Albuterol Sulfate [Albuterol 2 puff INHALATION RT-Q4H PRN 12/28/23 12/28/23 Sulfate Hfa] Atorvastatin [Lipitor] 10 mg PO DAILY 12/28/23 12/28/23 Cholecalciferol (Vitamin D3) 1,250 mcg PO Q7D 12/28/23 12/28/23 [Vitamin D3 (1250 Mcg = 50,000 Iu)] Dextroamphetamine/Amphetamine 20 mg PO DAILY 12/28/23 12/28/23 [Adderall Xr 20 mg Capsule] Gabapentin 300 mg PO BID 12/28/23 12/28/23 Lumateperone Tosylate [Caplyta] 42 mg PO HS 12/28/23 12/28/23 Magnesium Oxide [Mag-Ox] 400 mg PO HS 12/28/23 12/28/23 Metoprolol Succinate (ER) [Toprol 50 mg PO DAILY 12/28/23 12/28/23 Xl] Tirzepatide [Mounjaro] 2.5 mg SQ WE 12/28/23 12/28/23 Vilazodone HCl [Viibryd] 10 mg PO DAILY 12/28/23 12/28/23 busPIRone HCl [Buspar] 10 mg PO BID PRN 12/28/23 12/28/23 hydrOXYzine HCL [Atarax] 10 mg PO HS PRN 12/28/23 12/28/23 traZODone HCL [Desyrel] 50 mg PO HS 12/28/23 12/28/23 Allergies Allergy/AdvReac Type Severity Reaction Status Date / Time No Known Allergies Allergy Verified 05/16/24 18:39 Review of Systems ROS Other: All systems not noted in ROS Statement are negative. <Venita Tyson - Last Filed: 05/16/24 18:58> ROS Other: All systems not noted in ROS Statement are negative. <Miguel Knight - Last Filed: 05/17/24 04:33> ROS Statement: Those systems with pertinent positive or pertinent negative responses have been documented in the HPI. Past Medical History Past Medical History: Diabetes Mellitus, GERD/Reflux, Hyperlipidemia Additional Past Medical History / Comment(s): diverticulitis, sinus issues History of Any Multi-Drug Resistant Organisms: None Reported Past Surgical History: Ear Surgery, Orthopedic Surgery, Tonsillectomy, Tubal Ligation, Uterine Ablation Additional Past Surgical History / Comment(s): L knee-ARTHROSCOPIC Past Anesthesia/Blood Transfusion Reactions: No Reported Reaction Past Psychological History: Anxiety, Depression Smoking Status: Former smoker, Vaper Past Alcohol Use History: None Reported Past Drug Use History: None Reported - Past Family History Mother Family Medical History: Diabetes Mellitus, Hyperlipidemia, Hypertension Father Family Medical History: Hypertension <Venita Tyson - Last Filed: 05/16/24 18:58> General Exam Limitations: no limitations <Venita Tyson - Last Filed: 05/16/24 18:58> Limitations: no limitations General appearance: alert, in no apparent distress Head exam: Present: atraumatic Eye exam: Present: normal appearance, EOMI ENT exam: Present: TM's normal bilaterally, other (Tender right sided postauricular mass) Neck exam: Present: normal inspection. Absent: meningismus Respiratory exam: Absent: respiratory distress Cardiovascular Exam: Present: regular rate Neurological exam: Present: alert, oriented X3 Psychiatric exam: Present: normal affect, normal mood Skin exam: Present: warm, dry <Miguel Knight - Last Filed: 05/17/24 04:33> - General Exam Comments Initial Comments: Visual Physical Exam Vital signs reviewed General: Well-appearing, nontoxic, no acute distress. Head: Normocephalic, atraumatic Eyes: PERRLA, EOMI ENT: Airway patent Chest: Nonlabored breathing Skin: No visual rash, normal skin tone Neuro: Alert and oriented 3 Musculoskeletal: No gross abnormalities (Venita Tyson) Course Vital Signs 05/16/24 05/17/24 18:37 00:38 Temperature 97.6 F 97.8 F Pulse Rate 96 90 Respiratory 18 18 Rate Blood Pressure 123/69 120/75 O2 Sat by Pulse 100 99 Oximetry Medical Decision Making <Venita Tyson - Last Filed: 05/16/24 18:58> - Lab Data Result diagrams: 05/16/24 21:10 05/16/24 21:10 <Miguel Knight - Last Filed: 05/17/24 04:33> - Medical Decision Making I performed the quick note portion of this chart. Electronically signed by Venita Tyson PA-C (Venita Tyson) Was pt. sent in by a medical professional or institution ([facility], PLANT ASSOCIATE, urgent care, hospital, or fpc...) When possible be specific @ -No Did you speak to anyone other than the patient for history (EMS, parent, family, police, friend...)? What history was obtained from this source @ -No Did you review nursing and triage notes (agree or disagree)? Why? @ -I reviewed and agree with nursing and triage notes Were old charts reviewed (outside hosp., previous admission, EMS record, old EKG, old radiological studies, urgent care reports/EKG's, fpc records)? Report findings @ -No old charts were reviewed Differential Diagnosis (chest pain, altered mental status, abdominal pain women, abdominal pain men, vaginal bleeding, weakness, fever, dyspnea, syncope, headache, dizziness, GI bleed, back pain, seizure, CVA, palpatations, mental health, musculoskeletal)? @ -Differential includes lymphadenopathy, malignancy, abscess, this is not an all-inclusive list EKG interpreted by me (3pts min.). @ -As above X-rays interpreted by me (1pt min.). @ -None done CT interpreted by me (1pt min.). @ -CT shows focal XO ptosis projecting peripherally from the right temporal bone in the region of the right mastoid. This measures approximately 15 x 8 x 20 mm U/S interpreted by me (1pt. min.). @ -Ultrasound shows area of concern demonstrates possible lymph joshua versus soft tissue mass. Consider further evaluation with CT neck with IV contrast What testing was considered but not performed or refused? (CT, X-rays, U/S, labs)? Why? @ -None What meds were considered but not given or refused? Why? @ -None Did you discuss the management of the patient with other professionals (professionals i.e. , PA, PLANT ASSOCIATE, lab, RT, psych nurse, sr. social media & mobile manager, ppa teacher, teacher, security officers and guards, home health care case manager)? Give summary @ -No Was smoking cessation discussed for >3mins.? @ -No Was critical care preformed (if so, how long)? @ -No Were there social determinants of health that impacted care today? How? (Homelessness, low income, unemployed, alcoholism, drug addiction, transportation, low edu. Level, literacy, decrease access to med. care, correction, rehab)? @ -No Was there de-escalation of care discussed even if they declined (Discuss DNR or withdrawal of care, Hospice)? DNR status @ -No What co-morbidities impacted this encounter? (DM, HTN, Smoking, COPD, CAD, Cancer, CVA, ARF, Chemo, Hep., AIDS, mental health diagnosis, sleep apnea, morbid obesity)? @ -None Was patient admitted / discharged? Hospital course, mention meds given and route, prescriptions, significant lab abnormalities, going to OR and other pertinent info. @ -38-year-old female presenting with chief complaint of right sided postauricular mass. Has been there for few months that is now causing her some pain. She is also having pain over her sinuses, started on antibiotic by her PCP today. On exam the mass is somewhat tender, nonmobile, round, fixed. Labs show no leukocytosis or anemia. Ultrasound cannot determine if this is a lymph node or other soft tissue mass or recommend CT. CT determines that this is not a bony exotosis. Patient is educated on today's findings. Instructed to continue medications prescribed by her PCP and to follow-up with her PCP regarding this finding and any referrals or further testing that she may need. Discharged. Follow-up with PCP. Report back to ER with any new or worsening symptoms. Discussed return parameters and answered all questions. Patient conveyed verbal understanding and agreed to the plan. my attending is Dr. Shearer Undiagnosed new problem with uncertain prognosis? @ -No Drug Therapy requiring intensive monitoring for toxicity (Heparin, Nitro, In sulin, Cardizem)? @ -No Were any procedures done? @ -No Diagnosis/symptom? @ -Bony exostosis Acute, or Chronic, or Acute on Chronic? @ -acute Uncomplicated (without systemic symptoms) or Complicated (systemic symptoms)? @ -Uncomplicated Side effects of treatment? @ -No Exacerbation, Progression, or Severe Exacerbation? @ -No Poses a threat to life or bodily function? How? (Chest pain, USA, DC, pneumonia, PE, COPD, DKA, ARF, appy, cholecystitis, CVA, Diverticulitis, Homicidal, Suicidal, threat to staff... and all critical care pts) @ -No (Mgiuel Knight) - Lab Data Lab Results 05/16/24 05/16/24 Range/Units 21:10 21:10 WBC 6.7 (3.8-10.6) k/uL RBC 4.00 (3.80-5.40) m/uL Hgb 12.9 (11.4-16.0) gm/dL Hct 39.8 (34.0-46.0) % MCV 99.4 (80.0-100.0) fL MCH 32.1 (25.0-35.0) pg MCHC 32.4 (31.0-37.0) g/dL RDW 12.2 (11.5-15.5) % Plt Count 267 (150-450) k/uL MPV 7.4 Neutrophils % 66 % Lymphocytes % 25 % Monocytes % 6 % Eosinophils % 1 % Basophils % 0 % Neutrophils # 4.4 (1.3-7.7) k/uL Lymphocytes # 1.6 (1.0-4.8) k/uL Monocytes # 0.4 (0-1.0) k/uL Eosinophils # 0.1 (0-0.7) k/uL Basophils # 0.0 (0-0.2) k/uL Sodium 137 (137-145) mmol/L Potassium 3.8 (3.5-5.1) mmol/L Chloride 106 (98-107) mmol/L Carbon Dioxide 25 (22-30) mmol/L Anion Gap 6 mmol/L BUN 18 H (7-17) mg/dL Creatinine 0.55 (0.52-1.04) mg/dL Est GFR (CKD-EPI)AfAm >90 (>60 ml/min/1.73 sqM) Est GFR (CKD-EPI)NonAf >90 (>60 ml/min/1.73 sqM) Glucose 123 H (74-99) mg/dL Calcium 9.4 (8.4-10.2) mg/dL Total Bilirubin 0.6 (0.2-1.3) mg/dL AST 23 (14-36) U/L ALT 25 (4-34) U/L Alkaline Phosphatase 49 (38-126) U/L Total Protein 7.1 (6.3-8.2) g/dL Albumin 4.4 (3.5-5.0) g/dL Disposition <Venita Tyson - Last Filed: 05/16/24 18:58> Is patient prescribed a controlled substance at d/c from ED?: No Time of Disposition: 00:24 <Miguel Knight - Last Filed: 05/17/24 04:33> Clinical Impression: Bony exostosis Disposition: HOME SELF-CARE Condition: Good Additional Instructions: Follow up with PCP. Report back to ER with any new or worsening symptoms. Take medication as prescribed. Continue taking your antibiotics as prescribed. Referrals: Jessi Winters DO [Primary Care Provider] - 1-2 days
--- NOTE | 2024-05-16 20:18 | US ---
EXAMINATION TYPE: US thyroid st tissue head/neck DATE OF EXAM: 05/16/2024 COMPARISON: NONE CLINICAL INDICATION: Female, 38 years old with history of R sided post-auricular lump; Patient states right sided post auricular lump for 1 month. TECHNIQUE: Grayscale and color Doppler imaging of the AOC FINDINGS: There is a 1.4 x 0.8cm hypoechoic area seen at patients area of concern. This area is difficult to fu lly evaluate due to location. Posterior acoustic shadowing deep to this lesion possibly over the mast oid air air cells. IMPRESSION: Area of concern demonstrates possible lymph joshua versus other soft tissue mass. Consider Further lorene luation with CT neck with IV contrast recommended. [facility], , 05/16/2024 8:16 PM
[2024-05-16] MEDS: KETOROLAC 15 MG/ML 1 ML VIAL IVP STA (21:20)
[2024-05-16 21:27] LABS: Basophils % (A) 0 %; Eosinophils # (A) 0.1 k/uL (0-0.7); Eosinophils % (A) 1 %; HCT 39.8 % (34.0-46.0); HGB 12.9 gm/dL (11.4-16.0); Lymphocytes # (A) 1.6 k/uL (1.0-4.8); Lymphocytes % (A) 25 %; MCH 32.1 pg (25.0-35.0); MCHC 32.4 g/dL (31.0-37.0); MCV 99.4 fL (80.0-100.0); Mean Platelet Volume 7.4; Monocytes # (A) 0.4 k/uL (0-1.0); Monocytes % (A) 6 %; Neutrophils # (A) 4.4 k/uL (1.3-7.7); Neutrophils % (A) 66 %; Platelet Count 267 k/uL (150-450); RDW 12.2 % (11.5-15.5); WBC 6.7 k/uL (3.8-10.6)
[2024-05-16 21:42] LABS: ALT 25 U/L (4-34); AST 23 U/L (14-36); African American GFR (CKD) >90 (>60 ml/min/1.73 sqM); Albumin 4.4 g/dL (3.5-5.0); Alkaline Phosphatase 49 U/L (38-126); Anion Gap 6 mmol/L; Blood Urea Nitrogen 18 mg/dL (7-17); Calcium 9.4 mg/dL (8.4-10.2); Carbon Dioxide 25 mmol/L (22-30); Chloride 106 mmol/L (98-107); Glucose 123 mg/dL (74-99); Non-African American GFR(CKD) >90 (>60 ml/min/1.73 sqM); Potassium 3.8 mmol/L (3.5-5.1); Sodium 137 mmol/L (137-145); Total Bilirubin 0.6 mg/dL (0.2-1.3); Total Protein 7.1 g/dL (6.3-8.2)
--- NOTE | 2024-05-17 00:13 | CT ---
EXAM: CT Neck With Intravenous Contrast CLINICAL HISTORY: Right sided postauricular mass TECHNIQUE: Axial computed tomography images of the neck with intravenous contrast. CTDI is 11 mGy and DLP is 361.6 mGy-cm. This CT exam was performed using one or more of the following dose reduction techniques: automated exposure control, adjustment of the mA and/or kV according to patient size, and/or use of iterative reconstruction technique. COMPARISON: No relevant prior studies available. FINDINGS: Oropharynx: Unremarkable. No significant tonsillar enlargement. No peritonsillar abscess. Hypopharynx: Unremarkable. Larynx: Unremarkable. Normal epiglottis. Trachea: Unremarkable. Retropharyngeal space: Unremarkable. Submandibular/parotid glands: Unremarkable. Glands are normal in size. Thyroid: Unremarkable. No enlarged or calcified nodules. Bones/joints: There is a focal exostosis projecting peripherally from the right temporal bone in the region of the right mastoids. This measures approximate 15 x 8 x 20 mm. No acute fracture. Soft tissues: Unremarkable. Vasculature: No acute findings. Lymph nodes: Unremarkable. No lymphadenopathy. Lung apices: Unremarkable as visualized. IMPRESSION: There is a focal exostosis projecting peripherally from the right temporal bone in the region of the right mastoids. This measures approximate 15 x 8 x 20 mm.
[2024-05-17] MEDS: ACET/COD 300 MG/30 MG STARTER PACK 6 TAB BTL PO STA (00:34)
[2024-05-17 00:39] VITALS: BP 120/75; PULSE 90; TEMP 97.8
== END 2024-05-17 00:39 | disposition home or self-care (01) ==
LOC: EC 18:32
DX: M89.8X7 Other specified disorders of bone, ankle and foot (principal); F17.290 Nicotine dependence, other tobacco product, uncomplicated
CPT/HCPCS: 36415; 80053; 85025; 76536; 70491; 99284; 96374; J1885; Q9967

== ENCOUNTER 2024-06-17 16:24 | Emergency (ER) | payer OTHER ==
--- NOTE | 2024-06-17 16:52 | ED ---
Skin/Abscess/FB HPI - General Chief complaint: Skin/Abscess/Foreign Body Stated complaint: lump behind right ear causing pain Time Seen by Provider: 06/17/24 16:35 Source: patient, RN notes reviewed Mode of arrival: ambulatory Limitations: no limitations - History of Present Illness Initial comments: This is a 38-year-old female presenting to the emergency department chief complaint of A bump that is located of the posterior auricular ear on the right. Patient states that this has been present over the past few months and was evaluated approximately a month ago in the emergency department here where a CT scan was ordered and patient followed up with ENT outpatient. Patient states that ENT specialist informed her that the exocytosis that she has would not be contributing to her symptoms. Patient states that she has been experiencing pain located over the bump, earaches, intermittent paresthesias of the right side of the face, sore throat. Patient denies headaches, blurry or double vision, dysphagia, or focal neurological deficits. - Related Data Home Medications Medication Instructions Recorded Confirmed metFORMIN HCL [Glucophage] 1,000 mg PO BID 08/25/17 12/28/23 Pioglitazone [Actos] 45 mg PO DAILY 07/03/21 12/28/23 Tiotropium 2.5 Mcg/Puff [Spiriva 2 puff INHALATION RT-DAILY 02/09/23 12/28/23 Respimat 2.5 Mcg] Vilazodone HCl [Viibryd] 20 mg PO DAILY 03/03/23 12/28/23 Albuterol Sulfate [Albuterol 2 puff INHALATION RT-Q4H PRN 12/28/23 12/28/23 Sulfate Hfa] Atorvastatin [Lipitor] 10 mg PO DAILY 12/28/23 12/28/23 Cholecalciferol (Vitamin D3) 1,250 mcg PO Q7D 12/28/23 12/28/23 [Vitamin D3 (1250 Mcg = 50,000 Iu)] Dextroamphetamine/Amphetamine 20 mg PO DAILY 12/28/23 12/28/23 [Adderall Xr 20 mg Capsule] Gabapentin 300 mg PO BID 12/28/23 12/28/23 Lumateperone Tosylate [Caplyta] 42 mg PO HS 12/28/23 12/28/23 Magnesium Oxide [Mag-Ox] 400 mg PO HS 12/28/23 12/28/23 Metoprolol Succinate (ER) [Toprol 50 mg PO DAILY 12/28/23 12/28/23 Xl] Tirzepatide [Mounjaro] 2.5 mg SQ WE 12/28/23 12/28/23 Vilazodone HCl [Viibryd] 10 mg PO DAILY 12/28/23 12/28/23 busPIRone HCl [Buspar] 10 mg PO BID PRN 12/28/23 12/28/23 hydrOXYzine HCL [Atarax] 10 mg PO HS PRN 12/28/23 12/28/23 traZODone HCL [Desyrel] 50 mg PO HS 12/28/23 12/28/23 Previous Rx's Medication Instructions Recorded Acetaminophen-Codeine 300-30mg 1 tab PO Q4H PRN #20 tablet 06/17/24 [Tylenol #3] Allergies Allergy/AdvReac Type Severity Reaction Status Date / Time No Known Allergies Allergy Verified 06/17/24 16:36 Review of Systems ROS Statement: Those systems with pertinent positive or pertinent negative responses have been documented in the HPI. ROS Other: All systems not noted in ROS Statement are negative. Past Medical History Past Medical History: Diabetes Mellitus, GERD/Reflux, Hyperlipidemia Additional Past Medical History / Comment(s): diverticulitis, sinus issues History of Any Multi-Drug Resistant Organisms: None Reported Past Surgical History: Ear Surgery, Orthopedic Surgery, Tonsillectomy, Tubal Ligation, Uterine Ablation Additional Past Surgical History / Comment(s): L knee-ARTHROSCOPIC Past Anesthesia/Blood Transfusion Reactions: No Reported Reaction Past Psychological History: Anxiety, Depression Smoking Status: Former smoker, Vaper Past Alcohol Use History: None Reported Past Drug Use History: None Reported - Past Family History Mother Family Medical History: Diabetes Mellitus, Hyperlipidemia, Hypertension Father Family Medical History: Hypertension General Exam Limitations: no limitations General appearance: alert, in no apparent distress Expanded Ear exam: Present: other (right posterior auricular mass with no evidence of abscess, erythema, or warmth to touch) Neck exam: Present: normal inspection. Absent: tenderness, meningismus, lymphadenopathy Respiratory exam: Present: normal lung sounds bilaterally. Absent: respiratory distress, wheezes, rales, rhonchi, stridor Cardiovascular Exam: Present: regular rate, normal rhythm, normal heart sounds. Absent: systolic murmur, diastolic murmur, rubs, gallop, clicks GI/Abdominal exam: Present: soft, normal bowel sounds. Absent: distended, tenderness, guarding, rebound, rigid Extremities exam: Present: normal inspection, full ROM, normal capillary refill. Absent: tenderness, pedal edema, joint swelling, calf tenderness Back exam: Present: normal inspection Skin exam: Present: warm, dry, intact, normal color. Absent: rash Course Vital Signs 06/17/24 06/17/24 16:34 17:40 Temperature 97.6 F 97.8 F Pulse Rate 94 89 Respiratory 16 18 Rate Blood Pressure 117/82 121/68 O2 Sat by Pulse 99 99 Oximetry Medical Decision Making - Medical Decision Making Was pt. sent in by a medical professional or institution (, PA, PRODUCT APPLICATIONS SCIENTIST, urgent care, hospital, or fdc...) When possible be specific @ -No Did you speak to anyone other than the patient for history (EMS, parent, family, police, friend...)? What history was obtained from this source @ -No Did you review nursing and triage notes (agree or disagree)? Why? @ -I reviewed and agree with nursing and triage notes Were old charts reviewed (outside hosp., previous admission, EMS record, old EKG, old radiological studies, urgent care reports/EKG's, fdc records)? Report findings @ -I reviewed patient CT scan that was completed Differential Diagnosis (chest pain, altered mental status, abdominal pain women, abdominal pain men, vaginal bleeding, weakness, fever, dyspnea, syncope, headache, dizziness, GI bleed, back pain, seizure, CVA, palpatations, mental health, musculoskeletal)? @ -Otitis media, otitis externa, mastoiditis, COVID, flu, RSV. This is not all inclusive EKG interpreted by me (3pts min.). @ -none X-rays interpreted by me (1pt min.). @ -None done CT interpreted by me (1pt min.). @ -CT soft tissue neck with IV contrast 05/17/2024 that revealed a focal exostosis projecting peripherally from the right temporal bone in the region of the right mastoids. U/S interpreted by me (1pt. min.). @ -None done What testing was considered but not performed or refused? (CT, X-rays, U/S, labs)? Why? @ -None What meds were considered but not given or refused? Why? @ -None Did you discuss the management of the patient with other professionals (professionals i.e. , PA, PRODUCT APPLICATIONS SCIENTIST, lab, RT, psych nurse, social work job titles, automation controls expert, teacher, [employer] plans staff officer, briefcase sewer)? Give summary @ -No Was smoking cessation discussed for >3mins.? @ -No Was critical care preformed (if so, how long)? @ -No Were there social determinants of health that impacted care today? How? (Homelessness, low income, unemployed, alcoholism, drug addiction, transportation, low edu. Level, literacy, decrease access to med. care, intermediate, rehab)? @ -No Was there de-escalation of care discussed even if they declined (Discuss DNR or withdrawal of care, Hospice)? DNR status @ -No What co-morbidities impacted this encounter? (DM, HTN, Smoking, COPD, CAD, Cancer, CVA, ARF, Chemo, Hep., AIDS, mental health diagnosis, sleep apnea, morbid obesity)? @ -None Was patient admitted / discharged? Hospital course, mention meds given and route, prescriptions, significant lab abnormalities, going to OR and other pertinent info. @ -Discharge. 30-year-old female with right-sided mass behind the ear associated facial paresthesias. My evaluation patient is resting open no signs acute distress. NIH 0. No acute focal neurological deficits on examination. Patient has a bony mass located over the posterior auricular right ear with no overlying erythema or evidence of abscess. Patient divided with dose of Toradol and on reevaluation states that she is feeling better. Patient was provided with a prescription for Tylenol 3 and instructed to continue follow-up outpatient with specialist including ENT, primary care, and neurology for further evaluation. Discussed with Dr. Ji Undiagnosed new problem with uncertain prognosis? @ -No Drug Therapy requiring intensive monitoring for toxicity (Heparin, Nitro, Insulin, Cardizem)? @ -No Were any procedures done? @ -No Diagnosis/symptom? @ -Exostosis of right posterior ear Acute, or Chronic, or Acute on Chronic? @ -acute Uncomplicated (without systemic symptoms) or Complicated (systemic symptoms)? @ -uncomplicated Side effects of treatment? @ -No Exacerbation, Progression, or Severe Exacerbation? @ -No Poses a threat to life or bodily function? How? (Chest pain, USA, OR, pneumonia, PE, COPD, DKA, ARF, appy, cholecystitis, CVA, Diverticulitis, Homicidal, Suicidal, threat to staff... and all critical care pts) @ -No Disposition Clinical Impression: Bony exostosis Disposition: HOME SELF-CARE Condition: Good Additional Instructions: Please return to the Emergency Department if symptoms worsen or any other concerns. Prescriptions: Acetaminophen-Codeine 300-30mg [Tylenol #3] 1 tab PO Q4H PRN #20 tablet PRN Reason: pain Is patient prescribed a controlled substance at d/c from ED?: No Referrals: Jessi Winters DO [Primary Care Provider] - 1-2 days Time of Disposition: 17:34
[2024-06-17] MEDS: KETOROLAC 15 MG/ML 1 ML VIAL IM STA (17:07)
[2024-06-17 17:41] VITALS: BP 121/68; PULSE 89; RESP 18; TEMP 97.8
== END 2024-06-17 17:41 | disposition home or self-care (01) ==
LOC: EC 16:24
DX: M89.8X8 Other specified disorders of bone, other site (principal); F17.290 Nicotine dependence, other tobacco product, uncomplicated
CPT/HCPCS: 99283; 96372; J1885